=== PATIENT | male | born 1945 | race Caucasian/White ===

== ENCOUNTER 2020-05-19 06:35 | Inpatient (IN) | payer MEDICARE, BC, SELFPAY ==
[2020-05-19] VITALS (59 sets, daily range): BP systolic 86–186; BP diastolic 5–102; PULSE 54–102; RESP 15–38; TEMP 36.6–36.7; O2SAT 90–100; BMI 29.6
[2020-05-19] MEDS: nitroglycerin 0.4 mg sublingual Tablet SUBLINGUAL ×2 (06:45→06:50)
--- NOTE | 2020-05-19 06:49 | XR_ITS ---
WS: [id number] Portable AP upright chest, 05/19/2020 Clinical Data: chest pain Comparison: PA and lateral chest, 04/12/2012. Findings: No nodules, masses or effusions are seen. The heart is enlarged. The pulmonary vascularity is not increased. No pneumonia or pneumothorax is seen. The aortic arch and descending aorta show mil d tortuosity. Bilateral lower lobe opacities are seen and this could represent atelectasis and/or min imal pneumonia. Monitor leads on the chest wall. 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 XR/XR chest 1V portable [id number] Impression: 1. Minimal basilar opacities which could represent atelectasis and/or pneumonia . 2. Atherosclerosis and cardiomegaly.
--- NOTE | 2020-05-19 06:49 | ECG_ITS ---
[facility] Test Date: 2020-05-19 Pat Name: Hardeep Rodriguez Department: Room: Gender: Male Transitional Living Specialist: : 1945 Requested By: Alfie Sanderson Order Number: [id number] Jacki MD: Fabian Jackson M.D. Measurements Intervals [place] Rate: 77 P: 60 SC: 148 QRS: 54 QRSD: 92 T: 72 QT: 360 QTc: 408 Interpretive Statements SINUS RHYTHM WITH SINUS ARRHYTHMIA EARLY REPOLARIZATION [ST ELEVATION WITH NORMALLY INFLECTED T WAVE] No previous ECG available for comparison Electronically Signed On 05-19-2020 20:13:16 FURNACE UNLOADER by Fabian Jackson M.D. [id number]
[2020-05-19] MEDS: aspirin 81 mg Chew Tablet 324 MG PO (06:52)
[2020-05-19] MEDS: nitroglycerin 1 gm/inch oint Pkt 1 INCH TOPICAL ×2 (06:53→17:49)
[2020-05-19] MEDS: morphine 4 mg/mL SDV 1 mL IVP (06:55)
[2020-05-19] MEDS: ondansetron 2 mg/ML SDV 2 mL 4 MG IVP (06:55)
--- NOTE | 2020-05-19 07:00 | ECG_ITS ---
[facility] Test Date: 2020-05-19 Pat Name: Hardeep Rodriguez Department: Room: Gender: Male Cartridge Loader: : 1945 Requested By: Alfie Sanderson Order Number: [id number] Jacki MD: Fabian Jackson M.D. Measurements Intervals [place] Rate: 56 P: 56 MD: 142 QRS: 57 QRSD: 96 T: 62 QT: 405 QTc: 391 Interpretive Statements SINUS BRADYCARDIA ST ELEVATION, possibly related to early repolarization ACUTE PR Compared to ECG 05/19/2020 06:43:41 ST (T wave) deviation now present Myocardial infarct finding now present Sinus rhythm no longer present Sinus arrhythmia no longer present Early repolarization no longer present Electronically Signed On 05-19-2020 20:14:54 ROTOPRINTER by Fabian Jackson M.D. [id number]
[2020-05-19 07:04] LABS: Basophils % 0.3 %; Eosinophils # 0.2 10^3/uL (0.0-0.8); Eosinophils % 1.4 %; Hematocrit 45.8 % (42.0-52.0); Hemoglobin 14.8 g/dL (11.7-16.6); Lymphocytes # 2.9 10^3/uL (0.8-4.8); Lymphocytes % 22.9 %; Mean Corpuscular HGB Conc 32.3 g/dL (30.0-36.0); Mean Corpuscular Hemoglobin 30.5 pg (28.0-34.0); Mean Corpuscular Volume 94.4 fL (80-94); Mean Platelet Volume 10.1 fL (7.4-10.4); Monocytes % 8.2 %; Neutrophils # 8.39 10^3/uL (1.8-7.7); Nucleated Red Blood Cells % 0 %; Platelet Count 191 10^3/cmm (130-400); Red Blood Count 4.85 10^6/uL (4.1-5.3); Red Cell Distribution Width 12.1 % (12.1-15.1); White Blood Count 12.5 10^3/uL (4.0-10.0)
[2020-05-19] MEDS: sodium chloride 0.9% 1,000 ML 150 ML IV ×2 (07:05→17:26)
--- NOTE | 2020-05-19 07:17 | ED_ITS ---
HPI - Chest Pain General: Chief Complaint: Chest Pain Stated Complaint: Trouble breathing, Cp Time Seen by Provider: 05/19/20 06:45 History of Present Illness: HPI narrative: 75-year-old male presents the emergency room with complaint of chest pain. Began for 3 days morning woke him from sleep is not been having any other episodes recently like this. About 6 years ago he had a stress test which was negative. Is a history of hypertension and DVTs as well as previous PE he is on Eliquis and has been taking regularly. The chest pain is substernal in nature does not radiate anywhere it does make him short of breath he rates the pain at 10 of 10 after nitro he reports pain decreased to 8 of 10. He denies any diaphoresis he has had some nausea with this. He is not recently been ill he is noted any flulike symptoms no swelling in his legs. His initial EKG shows some early repole comparable to EKG from 08/16/13. EKG is reviewed with Dr. Staci SALAS complaint: chest pain Pertinent past history: other (DVT and pulmonary emboli) Onset (ago): hour(s) Timing of current episode: constant Prior episodes: No Onset: during rest Pain location: substernal Pain radiation: none Severity: severe Pain scale (0-10): 10 Quality: tightness and sharp Relieving factors: nitroglycerin and medication-other Exacerbating factors: nothing Context: history of DVT/PE Associated symptoms: Deny abdominal pain, diaphoresis, dyspnea, fever(s), leg edema, nausea, palpitations, sense of impending doom, syncope, vomiting or other Treatment prior to arrival: none Review of Systems Const: Denies: fever(s) or diaphoresis ENMT: Denies: throat pain, ear or mastoid pain, nasal discharge or nasal congestion Card: Denies: palpitations or syncope Resp: Denies: dyspnea GI: Denies: abdominal pain, nausea or vomiting : Denies: flank pain, dysuria, urinary frequency or urinary urgency Skin/Breast: Denies: rash or pruritus PFS ED PFSH: Medical History (Updated 05/23/20 @ 08:35 by Alfie Centeno DO) History of DVT (deep vein thrombosis) History of pulmonary embolism Pulmonary embolism Physical Exam Const: COMMON NORMALS: no acute distress GENERAL APPEARANCE: cooperative and comfortable ORIENTATION/CONSCIOUSNESS: Yes awake, Yes oriented to person, Yes oriented to place and Yes oriented to time HENMT: COMMON NORMALS: normocephalic, atraumatic and hearing grossly normal bilaterally HEAD & SCALP: normocephalic and atraumatic Eye: COMMON NORMALS: Equal, round and reactive pupils present, EOMs intact bilaterally, conjunctivae normal and no scleral icterus CONJUNCTIVA: Yes conjunctivae normal PUPIL: Yes Equal, round and reactive pupils present Neck/C-Spine: COMMON NORMALS: full ROM, no lymphadenopathy, supple and no JVD Lymph: LYMPHATIC: no lymphadenopathy noted and no lymphedema noted Resp: COMMON NORMALS: normal respiratory effort, No retractions, No use of accessory muscles and clear to auscultation bilaterally AUSCULTATION: clear to auscultation bilaterally Cardio: COMMON NORMALS: no JVD, regular rate, regular rhythm and No murmurs present (Cardio) RATE: regular rate RHYTHM: regular rhythm GI: COMMON NORMALS: Soft to palpation and No hepatosplenomegaly present AUSCULTATION: Yes normoactive bowel sounds PALPATION: Yes Soft to palpation, No Tenderness to palpation present (GI), No Guarding due to palpation present (GI) and Yes No hepatosplenomegaly present Extremity: COMMON NORMALS: normal to inspection, capillary refill normal, no clubbing, cyanosis or edema, no calf tenderness and no pedal edema Neuro: SENSORIUM/ORIENTATION: Yes oriented to person, Yes oriented to place and Yes oriented to time Skin: COMMON NORMALS: no rashes or lesions noted GENERAL SKIN EXAM: no rashes or lesions noted Course Vital Signs: Vital signs: Vital Signs Temperature 97.1 F L 05/22/20 15:55 Pulse Rate 70 05/22/20 16:16 Respiratory Rate 18 05/22/20 16:16 Blood Pressure 129/66 05/22/20 16:16 Pulse Oximetry 97 05/22/20 16:16 MDM - Chest Pain MDM Narrative: Medical decision making narrative: Initially reviewed EKGs with Dr. Small. There is subtle ST elevation it appears to be more related to early repolarization. Dr. Small reviewed the EKGs we sent him and he agreed. Patient continued to have increasing pain Dr. Small came and seen the patient down in the emergency room and elected to take the patient directly to the Science Professor. See his written orders. Lab Data: Labs: Lab Results 05/19/20 05/19/20 05/19/20 Range/Units 06:15 06:15 06:15 WBC 12.5 H (4.0-10.0) 10^3/ uL RBC 4.85 (4.1-5.3) 10^6/u L Hgb 14.8 (11.7-16.6) g/dL Hct 45.8 (42.0-52.0) % MCV 94.4 H (80-94) fL MCH 30.5 (28.0-34.0) pg MCHC 32.3 (30.0-36.0) g/dL RDW 12.1 (12.1-15.1) % Plt Count 191 (130-400) 10^3/c mm MPV 10.1 (7.4-10.4) fL Neut % (Auto) 67.0 % Lymph % (Auto) 22.9 % [place] % (Auto) 8.2 % Eos % (Auto) 1.4 % Baso % (Auto) 0.3 % Neut # (Auto) 8.39 H (1.8-7.7) 10^3/u L Lymph # (Auto) 2.9 (0.8-4.8) 10^3/u L [place] # (Auto) 1.0 H (0.2-0.9) 10^3/u L Eos # (Auto) 0.2 (0.0-0.8) 10^3/u L Baso # (Auto) 0.0 (0.0-0.1) 10^3/u L Nucleated RBC % (a uto) 0 % Nucleated RBCs # 0.0 /100WBC PT (12.1-14.9) SECO NDS INR (0.8-1.2) APTT (23.9-36.7) SECO NDS Sodium 139 (136-145) mmol/L Potassium 4.1 (3.5-5.1) mmol/L Chloride 101 (98-107) mmol/L Carbon Dioxide 29 (22-29) mmol/L Anion Gap 13.1 (5-19) BUN 22 (8-23) mg/dL Creatinine 0.7 (0.7-1.2) mg/dL GFR Calculation Not Reportable Glucose 104 (65-115) mg/dL Calculated Osmolal ity 292 (285-295) mOsm/k g Calcium 9.6 (8.5-10.5) mg/dL Total Bilirubin 0.7 (0.15-1.2) mg/dL AST 23 (0-40) U/L ALT 22 (0-41) U/L Alkaline Phosphata se 89 (40-130) IU/L Troponin T Baselin e 20 H (0-15) ng/L Total Protein 6.9 (6.6-8.7) g/dL Albumin 4.5 (3.5-5.2) g/dL Globulin 2.4 (1.3-4.6) g/dL 05/19/20 05/19/20 Range/Units 06:15 11:00 WBC 16.7 H (4.0-10.0) 10^3/ uL RBC 4.65 (4.1-5.3) 10^6/u L Hgb 14.1 (11.7-16.6) g/dL Hct 44.2 (42.0-52.0) % MCV 95.1 H (80-94) fL MCH 30.3 (28.0-34.0) pg MCHC 31.9 (30.0-36.0) g/dL RDW 12.3 (12.1-15.1) % Plt Count 200 (130-400) 10^3/c mm MPV 9.7 (7.4-10.4) fL Neut % (Auto) 88.1 % Lymph % (Auto) 5.5 % [place] % (Auto) 5.8 % Eos % (Auto) 0.1 % Baso % (Auto) 0.2 % Neut # (Auto) 14.72 H (1.8-7.7) 10^3/u L Lymph # (Auto) 0.9 (0.8-4.8) 10^3/u L [place] # (Auto) 1.0 H (0.2-0.9) 10^3/u L Eos # (Auto) 0.0 (0.0-0.8) 10^3/u L Baso # (Auto) 0.0 (0.0-0.1) 10^3/u L Nucleated RBC % (a uto) 0 % Nucleated RBCs # 0.0 /100WBC PT 14.50 (12.1-14.9) SECO NDS INR 1.10 (0.8-1.2) APTT 31.4 (23.9-36.7) SECO NDS Sodium (136-145) mmol/L Potassium (3.5-5.1) mmol/L Chloride (98-107) mmol/L Carbon Dioxide (22-29) mmol/L Anion Gap (5-19) BUN (8-23) mg/dL Creatinine (0.7-1.2) mg/dL GFR Calculation Glucose (65-115) mg/dL Calculated Osmolal ity (285-295) mOsm/k g Calcium (8.5-10.5) mg/dL Total Bilirubin (0.15-1.2) mg/dL AST (0-40) U/L ALT (0-41) U/L Alkaline Phosphata se (40-130) IU/L Troponin T Baselin e (0-15) ng/L Total Protein (6.6-8.7) g/dL Albumin (3.5-5.2) g/dL Globulin (1.3-4.6) g/dL Discharge Plan Discharge Patient Disposition: Admitted As Inpatient Admit Provider: Dylan Wakefield Clinical Impression: Chest pain, History of coronary artery disease Condition: Stable Referrals: Dylan Wakefield MD [Physician] - Marycarmen Maradiaga FNP [Nurse Practitioner] - 4-7 days ([facility] will be calling you to arrange an appointment date and time. If you don't hear from them please call the office. ) Pete Dunne MD [Primary Care Provider] - Discharge Diet: Cardiac Discharge Activity: Increase activity as tolerated, Limit activity as instructed and Use walker/crutches as instructed Patient Instructions: Metoprolol (By mouth), Colchicine (By mouth), Atorvastatin (By mouth), Clopidogrel (By mouth), Pantoprazole (By mouth), Atrial Fibrillation (DC), Left Heart Catheterization (DC), Coronary Angioplasty (DC), Acute Pericarditis (DC), Chest Pain Stoplight, Post Angiogram Home Care Instructions Additional Instructions: You will have a hospital Follow-up with Marycarmen Maradiaga in 7 days, Dr. Wakefield in 4- week. Please continue Plavix without interruption for next 1 year. [facility] will be calling you to arrange an appointment date and time. If you don't hear from them please call the office. Follow-up with your primary care doctor. Interventions: ED Discharge Assessment Last Done: 05/19/20 08:34 ED Charges Last Done: 05/19/20 08:34 Discharge Date/Time: 05/19/20 15:18 Coding Level of Care Code ED Drop Wire Hanger for Chg Fwd Exam Comprehensive
[2020-05-19] MEDS: morphine 4 mg/mL SDV 1 mL 2 MG IVP (07:19)
[2020-05-19 07:20] LABS: Alanine Aminotransferase 22 U/L (0-41); Albumin Level 4.5 g/dL (3.5-5.2); Alkaline Phosphatase 89 IU/L (40-130); Anion Gap 13.1 (5-19); Aspartate Amino Transferase 23 U/L (0-40); Blood Urea Nitrogen 22 mg/dL (8-23); Calcium 9.6 mg/dL (8.5-10.5); Carbon Dioxide 29 mmol/L (22-29); Chloride 101 mmol/L (98-107); Globulin 2.4 g/dL (1.3-4.6); Glucose 104 mg/dL (65-115); Osmolality Calculated 292 mOsm/kg (285-295); Potassium 4.1 mmol/L (3.5-5.1); Sodium 139 mmol/L (136-145); Total Bilirubin 0.7 mg/dL (0.15-1.2); Total Protein 6.9 g/dL (6.6-8.7)
[2020-05-19 07:22] LABS: Troponin(5th) Baseline 20 ng/L (0-15)
[2020-05-19 08:00] LABS: Partial Thromboplastin Time 31.4 SECONDS (23.9-36.7)
[2020-05-19] MEDS: heparin 5,000 unit/mL INJ 1 mL 5000 UNIT INJECTION (08:17)
[2020-05-19] MEDS: clopidogrel 300 mg Tablet 600 MG PO (08:17)
--- NOTE | 2020-05-19 08:18 | P.HP_ITS ---
Providers/Chief Complaint Admitting Physician: Dylan Wakefield MD Primary Care Provider: Pete Dunne MD Chief Complaint: Trouble breathing, Cp History of Present Illness Hardeep Rodriguez is a 75 year old male past medical history not significant for DVT/pulmonary embolism on long-term anticoagulation apixaban, vitamin D insufficiency presented with chest pain off and on basis since 3 AM this morning. He came to the ER initial and subsequent EKGs were consistent with bradycardia and early repolarization no prior EKG to compare. Despite of couple of rounds of nitroglycerin which brought him down his blood pressure and morphine patient chest pain gotten worse now he rates it 10 x 10. He used to see Dr. Ton Foster few years ago he had a stress test which was negative. Si nce patient continues to have chest pain which has been worsening and not relieving plus his EKG is equivocal we will proceed with left heart cath. I have detailed discussion with the patient his at bedside and his son over the phone who is in [place] regarding all the risk benefit and alternative for the procedure. They would like to proceed with left heart cath. They understand the risk of bleeding arrhythmia urgent or emergent bypass stroke and . Medications/Allergies Home Medications Medication Instructions Recorded Confirmed Last Taken Type Vitamin D3 1 cap PO DAILY 05/19/20 05/19/20 05/18/20 History apixaban [Eliquis] 5 mg PO BID 05/19/20 05/19/20 05/18/20 21:00 History vardenafil 20 mg PO PRN 05/19/20 05/19/20 Unknown History Allergies Allergy/AdvReac Type Severity Reaction Status Date / Time No Known Allergies Allergy Verified 05/19/20 08:14 PFSH Acute PFSH: Medical History History of DVT (deep vein thrombosis) History of pulmonary embolism Vitals/I&O/Wt Last Vital Signs Temp 97.9 F 05/19/20 06:43 Pulse 54 L 05/19/20 07:01 Resp 15 05/19/20 07:19 BP 86/50 05/19/20 07:01 Pulse Ox 94 05/19/20 07:01 Weight last 48 hrs Weight 195 lb Physical Exam Narrative: EXAM NARRATIVE: GENERAL: Patient is alert, awake and oriented x3. Patient is in severe distress NECK: No jugular vein distension. HEENT: No cyanosis. No icterus. No pallor. HEART: Regular S1 and S2. No murmur, rub or gallop. LUNGS: Clear to auscultate bilaterally. ABDOMEN: Soft, nontender and nondistended. Positive bowel sounds. No guarding, rebound or tenderness. CENTRAL NERVOUS SYSTEM: Grossly nonfocal. EXTREMITIES: Lower extremities without edema bilaterally. Pulses palpable in the lower extremities, both dorsalis pedis and posterior tibial. Data : 05/19/20 06:15 05/19/20 06:15 A&P Assessment and plan (1) Chest pain: Worsening and continuous chest pain despite of medical regimen with equivocal EKG suspicious for unstable angina we would therefore proceed with early invasive strategy. As above defined I have personally explained all risk benefit and alternative for the procedure patient understand the risk of bleeding hematoma arrhythmia urgent emergent CABG due to complication or not due to nature of disease and an extreme scenarios . He would like to proceed with it. I will load patient with 600 mg of Plavix, 325 mg of aspirin and 5000 unit of heparin. Further plan will be advised as per progress of the patient and during left heart cath. Status: Acute Qualifiers: Chest pain type: precordial pain Qualified Code(s): R07.2 - Precordial pain Attestations Medical Necessity Statement*: Patient require continuation hospitalization for above defined care. 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
--- NOTE | 2020-05-19 08:19 | XACV_ITS ---
Exam Room: 1 Ht: 173 cm Wt: 88 kg BSA: 2.08 m2 Gender: Male : 1945 Exam Priority: Routine Indication(s): - Unstable angina Procedure(s): Procedure Description: Diagnostic procedure Procedure Description: PCI procedure Procedure Description: Drug Eluting Coronary Stent Procedure Description: PTCA Procedure Description: Coronary Angiography Diagnostic Findings * LM has 0% stenosis. * Mid Left Anterior Descending Coronary Artery: Severe 80% stenosis, RXE: 3 flow. * mCIRC: Mild 40% stenosis, REX: 3 flow. * dCIRC: Moderate 50% stenosis, REX: 3 flow. * Posterior Descending Right Coronary Artery: Severe 80% stenosis, REX: 3 flow. * Posterior Descending Right Coronary Artery: Severe 80% stenosis, REX: 3 flow. * Posterior Descending Right Coronary Artery: Severe 80% stenosis, REX: 3 flow. * Coronary angiography shows right dominance. Interventional Findings * Mid Left Anterior Descending Coronary Artery: 80% stenosis treated with MDT R JORGE 3.0X30 JOE. 0% residual stenosis, REX: 3 flow. * Posterior Descending Right Coronary Artery: 80% stenosis treated with AB TREK 2.50X12 RX BALLOON, MDT R JORGE 2.5X15 JOE, and two MDT R JORGE 3.0X8 JOE. 0% residual stenosis, REX: 3 flow. * Posterior Descending Right Coronary Artery: 80% stenosis treated with Drug Eluting Stent. 0% residual stenosis, REX: 3 flow. * Posterior Descending Right Coronary Artery: 80% stenosis treated with Drug Eluting Stent. 0% residual stenosis, REX: 3 flow. Conclusions 1. There is severe coronary artery disease with two vessel disease. 2. Mid Left Anterior Descending Coronary Artery was treated with Drug Eluting Stent. 3. Posterior Descending Right Coronary Artery was treated with Balloon and three Drug Eluting Stent. 4. Posterior Descending Right Coronary Artery was treated with Drug Eluting Stent. 5. Posterior Descending Right Coronary Artery was treated with Drug Eluting Stent. 6. Indication for 7. coronary angiogram and PCI 8. : 9. Acute coronary syndrome 10. with ST elevation in the inferolateral leads 11. with question of 12. pericarditis 13. versus 14. acute coronary syndrome 15. since patient continued to have chest pain not relieved with morphine 16. and somewhat relieved with nitroglycerin 17. patient was taken to the Senior Radiation Protection Technician he was found to have 18. proximal eccentric PDA and mid 80% PDA with 80% mid LAD. Could not be incidental finding however since patient is complaining of chest pain for the past few months and worsening of shortness of breath these lesions appear to be significant to me and this is an acute presentation with EKG changes we therefore proceeded with PCI. RPDA after deployment of proximal and mid stent showed hazy mid lesion could be dissection versus thrombus not got better with balloon angioplasty therefore will stented that segment as well.. Recommendations * 1-Return to inpatient for close monitoring and routine cath care 2-Risk factor modification for secondary prevention 3-Statin and aspirin 81 mg life--long, if tolerated 4-Patient was pre-loaded with 600 mg of Plavix, continue Plavix 75mg p.o. daily for at least one year. We will assess at the end of one year again to continue if further or not 5-Continue optimal medical management 6-Follow up with Dr. Wakefield in four weeks and your primary care in 10 days. Interventional RX Recommendation: PCI w/o planned CABG Diagnostic RX Recommendation: PCI w/o planned CABG Pressures Phase:Rest AO : 110 / 64 ( 81 ) @ 2:45:00 AM 113 / 84 ( 97 ) @ 3:20:00 AM 116 / 91 ( 103 ) @ 3:27:00 AM 132 / 81 ( 105 ) @ 4:05:00 AM 123 / 89 ( 105 ) @ 4:11:00 AM 155 / 105 ( 129 ) @ 4:15:00 AM Clinical Evaluation EBL: 5mL-10mL Procedural Details Pre-Procedure Time Out. Identified patient by full name and date of as verbalized by the patient/guarantor. Does the consent match the physician's order: Yes. Accurate & Complete Informed Consent: Yes. Inpatient/Outpatient History & Physical on Chart: Yes. If H&P is completed, is and addenduem needed: N/A; If yes, is the addendum complete: N/A. Visualize and Verify Site with Patient/Guarantor: N/A. Relevant Radiology Images available: N/A. Pre-op teaching completed and patient verbalized understanding. The risks, benefits, and alternatives of sedation and/or procedure were discussed by physician. The patient agrees to continue. Procedure started. [facility] Clinical Fraility Score: 3: Managing Well. Senior Radiation Protection Technician Indications: Pre-operative Evaluation. Chest Pain Symptom Assessment: Typical Angina Symptoms. Cardiovascular Instability: Yes, if yes, Persistant Ischemic Symptoms. Correct patient, site and procedure confirmed by cath team. Current diagnosis: Unstable angina. PERRLA. Strong, equal hand charge auditor bilaterally. Lungs clear x 5 lobes. IV Fluids: 0.9% NaCl at KVO. 0 mL infused prior to operations label clerk. Pre Procedural Pulses: bilateral radial was 3+. IV Site on Arrival: 18 gauge in the left anticubital. Oxygen started at 2liters/min via nasal canula. right groin was prepped with chloroprep then draped in the usual sterile fashion. right radial was prepped with chloroprep then draped in the usual sterile fashion. Physician notified. Physician arrived. Baseline sample Acquired. HR: 89 BPM. Patient's family unavailable due to current Covid-19 restrictions. Will update via telephone. Equipment: 6F - Radial. ACIST Manifold Kit Model BT 2000. Cardiac Cath Pack. Heparinized Saline (2 units/mL), 1000 mL bag. Current Diagnosis : Chest Pain. Physician scrubbed in. Immediate Pre-Procedure Time Out. Correct Patient: Yes; Correct Procedure: Yes; Correct Site: Yes; Correct Patient Position: Yes; Correct Supplies: Yes; Dried Flammable Prep: Yes; Blood Products Available: N/A. Lidocaine 1% infiltrated to the right radial. Arterial access obtained. A 5 moldovan TIG catheter in over wire. Multiple views taken of left coronary artery. The patient's spouse, Lisa , was updated via telephone of the start of the procedure. Catheter redirected to the RCA. Multiple views taken of right coronary artery. Catheter removed over the exchange wire. PCI Indication: New Onset Angina. 6 moldovan JR 4 guide catheter was inserted over the wire. [place] Bottom guidewire was advanced through the guide catheter to lesion in the PDA. Inflation number : 1 A AB TREK 2.50X12 RX BALLOON was prepped and advanced across the R PDA , then inflated to 14 EMMA for 0:13 seconds. Inflation number: 2 The AB TREK 2.50X12 RX BALLOON was reinflated across the R PDA, to 14 EMMA for 0:09 seconds. Inflation number: 3 The AB TREK 2.50X12 RX BALLOON was reinflated across the R PDA, to 14 EMMA for 0:06 seconds. Inflation number: 4 The AB TREK 2.50X12 RX BALLOON was reinflated across the R PDA, to 14 EMMA for 0:21 seconds. Results checked. Inflation number: 5 The AB TREK 2.50X12 RX BALLOON was reinflated across the R PDA, to 14 EMMA for 0:00 seconds. Results checked. Balloon out. Inflation Number : 6 A MDT R JORGE 2.5X15 JOE -Lot Number# [id number] was prepped and advanced across the R PDA. The stent was deployed at 17 EMMA for 0:21 seconds. Exp. 02/25/2022. Results checked. Balloon out. [place] Bottom Wire out. Runthrough guidewire was advanced through the guide catheter to lesion in the ostial PDA. Inflation Number : 7 A MDT R JORGE 3.0X8 JOE -Lot Number# [id number] was prepped and advanced across the R PDA. The stent was deployed at 12 EMMA for 0:16 seconds. Exp. 11/29/2021. Results checked. Stent balloon and wire out. Wire out. Runthrough guidewire was advanced through the guide catheter to lesion in the PDA. Jorge 2.5 x 8 inserted, unable to cross, removed intact. Guideliner inserted. Guideliner out. Wire out. Guide catheter out. 6 moldovan AL 0.75 guide catheter was inserted over the wire. ACT drawn. Results 179 seconds. Therapeutic limits - pre-heparin administration 90-150 seconds and monitoring heparin during a vascular procedure >250 seconds. BMW guidewire was advanced through the guide catheter to lesion in the PDA. The patient's spouse, Lisa , was updated via telephone of the start of the procedure. Inflation Number : 8 A MDT R JORGE 3.0X8 JOE -Lot Number# [id number] was prepped and advanced across the R PDA. The stent was deployed at 14 EMMA for 0:18 seconds. Exp. . Inflation number: 9 The stent balloon was then re-inflated across the R PDA to 16 EMMA for 0:14 seconds. Results checked. Stent balloon and wire out. Guide catheter out. A 5 moldovan JL4 catheter in over wire. Multiple views taken of left coronary artery. Catheter out. 6 moldovan XB 3.5 guide catheter was inserted over the wire. ACT drawn. Results seconds. Therapeutic limits - pre-heparin administration 90-150 seconds and monitoring heparin during a vascular procedure >250 seconds. BMW guidewire was advanced through the guide catheter to lesion in the mid LAD. Inflation Number : 1 A MDT R JORGE 3.0X30 JOE -Lot Number# [id number] was prepped and advanced across the Mid LAD. The stent was deployed at 16 EMMA for 0:26 seconds. Exp. 10/17/2020. Results checked. Stent balloon out over wire. NC Euphora 3.5 x 15 balloon unable to cross, removed. Wire out. Results checked. Guide catheter out. Physiciann scrubbed out. TR band placed. Hemostasis obtained. Post Procedure: Pulses reassessed and unchanged. PERRLA. Strong, equal hand charge auditor bilaterally. No VTE prophylaxis required. A TR Band was successful obtaining hemostatsis at the Right Radial artery insertion site. Medication's Wasted: Lidocaine 1% = 14 mL. Medication's Wasted: Nitro = 49.6 mg. Total IV fluids: 200 mL. Post-op diagnosis: Significant 2 vessel disease. Complications: none. Estimated blood loss: 5mL-10mL. Procedure completed. Patient transferred by wheelchair to CPRU. Vital chart was stopped. Access Site Site: Right Radial artery Sheath Size: 6 Fr Hemostasis Method: TR Band Hemostasis Success: Successful Procedure Medications Start: 8:39 AM Stop: 8:39 AM Medication: Versed Amount: 1 mg Route: I.V. Start: 8:39 AM Stop: 8:39 AM Medication: Fentanyl Amount: 50 mcg Route: I.V. Start: 8:42 AM Stop: 8:42 AM Medication: Nitrogylcerin Amount: 200 mcg Route: I.A. Start: 8:52 AM Stop: 8:52 AM Medication: Heparin Amount: 4000 units Route: I.V. Start: 8:55 AM Stop: 8:55 AM Medication: Aggrastat 12.5 mg/250 mL Amount: 44 ml Route: I.V. bolus Start: 8:56 AM Stop: 8:56 AM Medication: Aggrastat 12.5 mg/250 mL Amount: 15.8 ml/hr Route: I.V. drip Start: 9:18 AM Stop: 9:18 AM Medication: Versed Amount: 1 mg Route: I.V. Start: 9:24 AM Stop: 9:24 AM Medication: Nitrogylcerin Amount: 200 mcg Route: I.C. Start: 9:46 AM Stop: 9:46 AM Medication: Heparin Amount: 2000 units Route: I.V. Start: 9:57 AM Stop: 9:57 AM Medication: Fentanyl Amount: 50 mcg Route: I.V. I, the attending physician, have reviewed and verified all procedure medications. Yes, all medications given per verbal order History/Risk Factors Hypertension: Yes Dyslipidemia: No Peripheral Arterial Disease (PAD): No Myocardial Infarction (OK): No Obesity: No Renal Disease: No Prior Interventions PCI: No CABG: No Valve Surgery: No Report Signatures Finalized by Dylan Wakefield MD on 05/31/2020 03:01 PM
--- NOTE | 2020-05-19 10:45 | PC.NURSE ---
RECOVERY NOTE PT RECEIVED FROM ENGRAVING PLATE MAKER. POST INTERVENTION VIA WHEELCHAIR, PT UNSTEADY ON FEET TRANSFERRING TO BED WITH 1 PERSON ASSIST. TR BAND IN PLACE WITH 18 MLS OF AIR. NO HEMATOMA PRESENT. PT ATTEMPTED TO VOID ON HIS OWN WITH NO SUCCESS. EDWARD PLACED WITH VERBAL ORDER FROM DR GANNON. TOTAL OUTPUT 1250. PT ALERT AND ORIENTED X3. DINKER PACED WITH OTHER VITALS TAKEN . PT VERBALLY EDUCATED ON RESTRICTIONS TO RIGHT WRIST. PT VERBALIZED UNDERSTANDING. PALPABLE RIGHT RADIAL PULSE. NO OTHER ASSESSMENT CHANGES NOTED AT THIS TIME. WILL CONTINUE TO MONITOR.
[2020-05-19 11:10] LABS: Basophils % 0.2 %; Eosinophils % 0.1 %; Hematocrit 44.2 % (42.0-52.0); Hemoglobin 14.1 g/dL (11.7-16.6); Lymphocytes # 0.9 10^3/uL (0.8-4.8); Lymphocytes % 5.5 %; Mean Corpuscular HGB Conc 31.9 g/dL (30.0-36.0); Mean Corpuscular Hemoglobin 30.3 pg (28.0-34.0); Mean Corpuscular Volume 95.1 fL (80-94); Mean Platelet Volume 9.7 fL (7.4-10.4); Monocytes % 5.8 %; Neutrophils # 14.72 10^3/uL (1.8-7.7); Neutrophils % 88.1 %; Nucleated Red Blood Cells % 0 %; Platelet Count 200 10^3/cmm (130-400); Red Blood Count 4.65 10^6/uL (4.1-5.3); Red Cell Distribution Width 12.3 % (12.1-15.1); White Blood Count 16.7 10^3/uL (4.0-10.0)
--- NOTE | 2020-05-19 11:27 | PC.NURSE ---
RECOVERY NOTE BILATERAL IVS ALREADY IN PLACE ON ARRIVAL TO TRAVEL PROFESSIONAL- SEE ER DOCUMENTATION FOR DETAILS.
--- NOTE | 2020-05-19 11:59 | ECG_ITS ---
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 Measurements Intervals [place] Rate: 85 P: 45 AK: 110 QRS: 36 QRSD: 93 T: 46 QT: 333 QTc: 398 Interpretive Statements SINUS RHYTHM WITH SHORT AK INTERVAL ST ELEVATION, CONSIDER INFERIOR INJURY [MARKED ST ELEVATION W/O NORMALLY INFLECTED T WAVE IN II/aVF] ACUTE NM Diffuse ST changes, consider early polarization/pericarditis Compared to ECG 05/19/2020 07:25:09 Short AK interval now present Sinus bradycardia no longer present ST (T wave) deviation still present Myocardial infarct finding still present Electronically Signed On 05-19-2020 20:18:50 CAR PAINTER by Fabian Jackson M.D. [id number]
--- NOTE | 2020-05-19 12:16 | USCV_ITS ---
Hardeep Rodriguez Age: 75 Gender: M : 1945 Exam Date: 05/19/2020 14:58 Ordering Phys: Dylan Wakefield MD ([email or web address]) Technologist: Darryl Hawthorne [place] [facility] [place]ication: STEMI BP: 125 / 66 HR: 79 Rhythm: Sinus Technical Quality: Fair MEASUREMENTS (Male / Female) Normal Values 2D ECHO LVOT Diameter 2.0 cm LV Ejection Fraction MOD 2C 55.5 % LV Ejection Fraction 2C AL 56.1 % LA Diameter 3.9 cm LA Width 3.5 cm LA Height 4.3 cm RA Width 3.8 cm RA Height 4.2 cm M-MODE LV Diastolic Diameter MM 4.5 cm 4.2 - 5.9 / 3.9 - 5.3 cm LV Systolic Diameter MM 2.9 cm LV Ejection Fraction MM Teich 64.7 % IVS Diastolic Thickness MM 0.9 cm 0.6 - 1.0 / 0.6 - 0.9 cm IVS Systolic Thickness MM 1.5 cm LVPW Diastolic Thickness MM 1.1 cm 0.6 - 1.0 / 0.6 - 0.9 cm LVPW Systolic Thickness MM 1.8 cm RV Diastolic Diameter MM 2.0 cm Aortic Annulus Diameter 3.8 cm LA Ao Ratio MM 1.1 MV E Point Septal Separation 1.0 cm DOPPLER AV Peak Velocity 114.0 cm/s LVOT Peak Velocity 137.0 cm/s AV Area Cont Eq vti 4.2 cm squared AV Area Cont Eq pk 4.0 cm squared MV Area PHT 5.0 cm squared Mitral E to A Ratio 1.0 MV E' Velocity 36.0 cm/s Mitral E to MV E' Ratio 7.1 Mitral E to LV E' Lateral Ratio 6.1 Mitral E to LV E' Septal Ratio 8.6 TR Peak Velocity 129.0 cm/s TR Peak Gradient 6.7 mmHg TV Peak E Velocity 58.0 cm/s Right Atrial Pressure 3.0 mmHg Pulmonary Artery Systolic Pressu 9.7 mmHg FINDINGS Left Ventricle Normal left ventricular cavity size. Normal left ventricular systolic function. No regional wall motion abnormalities. Left ventricular ejection fraction is estimated at 64 %. Grade I/IV diastolic dysfunction (abnormal relaxation filling pattern), normal to mildly elevated filling pressures. Right Ventricle The right ventricle is normal in size and function. Right Atrium The right atrium is normal in size. Left Atrium The left atrium is normal in size. Mitral Valve Mildly thickened mitral valve. No mitral valve stenosis. No mitral valve regurgitation. Aortic Valve Mild aortic valve calcification. No aortic valve stenosis. No aortic valve regurgitation. Tricuspid Valve Structurally normal tricuspid valve without significant stenosis or regurgitation. Pulmonary artery systolic pressure is normal. Pulmonic Valve Structurally normal pulmonic valve without significant stenosis. There is no pulmonic regurgitation. Pericardium Normal pericardium without effusion. Aorta Normal ascending aorta dimension. CONCLUSIONS 1-Normal left ventricular cavity size. Normal left ventricular systolic function. No regional wall motion abnormalities. Left ventricular ejection fraction is estimated at 64 %. Grade I/IV diastolic dysfunction (abnormal relaxation filling pattern), normal to mildly elevated filling pressures. 2-Mild aortic valve calcification. No aortic valve stenosis. No aortic valve regurgitation. 3-There is no pericardial effusion. 4-There are no prior echocardiogram studies to compare. 5-Due to poor quality study cannot compared with prior echocardiogram Dylan Wakefield MD (Electronically Signed) Final Date: 21 May 2020 18:51 S
--- NOTE | 2020-05-19 12:34 | PC.NURSE ---
RECOVERY NOTE PT BEGAN COMPLAINING OF 10 OUT OF 10, CALLED STAT EKG PER DR GANNON VERBAL ORDER. OXYGEN PLACED ON PT 2L NC. VITAL SIGNS STABLE. WHEN RESPIRATORY ARRIVED TO COMPLETE EKG, PT HAD TO BE AWAKENED TO PROPERLY POSITION FOR EKG. EKG HAND DELIVERED TO DR GANNON BY KINA KRUEGER. NO FURTHER ORDERS AT THIS TIME. WILL CONTINUE TO MONITOR PER PROTOCOL.
[2020-05-19 16:28] LABS: Basophils % 0.2 %; Hematocrit 41.8 % (42.0-52.0); Hemoglobin 13.5 g/dL (11.7-16.6); Lymphocytes % 4.7 %; Mean Corpuscular HGB Conc 32.3 g/dL (30.0-36.0); Mean Corpuscular Hemoglobin 30.6 pg (28.0-34.0); Mean Corpuscular Volume 94.8 fL (80-94); Mean Platelet Volume 10.2 fL (7.4-10.4); Monocytes # 1.8 10^3/uL (0.2-0.9); Monocytes % 8.2 %; Neutrophils # 18.89 10^3/uL (1.8-7.7); Neutrophils % 86.4 %; Nucleated Red Blood Cells % 0 %; Platelet Count 187 10^3/cmm (130-400); Red Blood Count 4.41 10^6/uL (4.1-5.3); Red Cell Distribution Width 12.3 % (12.1-15.1); White Blood Count 21.8 10^3/uL (4.0-10.0)
--- NOTE | 2020-05-19 17:33 | PC.NURSE ---
patient reports 10/[address] Dr melgar notified and at bedside verbal instructions given to give lasix IVP 40mg x one now and stop IV fluids
--- NOTE | 2020-05-19 17:36 | ECG_ITS ---
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 Measurements Intervals [place] Rate: 75 P: 180 OR: 133 QRS: 149 QRSD: 97 T: 151 QT: 341 QTc: 382 Interpretive Statements SINUS RHYTHM ARM LEADS REVERSED [INVERTED P AND QRS IN I] ST ELEVATION, CONSIDER SEPTAL INJURY [MARKED ST ELEVATION W/O NORMALLY INFLECTED T WAVE IN V1/V2] ACUTE MA Cannot rule out early repolarization/pericarditis Compared to ECG 05/19/2020 12:19:00 Short OR interval no longer present Myocardial infarct finding no longer present ST (T wave) deviation still present Electronically Signed On 05-19-2020 20:20:38 DRESS DESIGNER by Fabian Jackson M.D. [id number]
[2020-05-19] MEDS: FUROsemide 10 mg/mL SDV 4mL 40 MG IVP ×2 (17:47→22:46)
--- NOTE | 2020-05-19 17:50 | XACV_ITS ---
Exam Room: 1 Ht: 173 cm Wt: 88 kg BSA: 2.08 m2 Gender: Male : 1945 Exam Priority: Routine Procedure(s): Procedure Description: Diagnostic procedure Procedure Description: Left Heart Catheterization Procedure Description: Coronary Angiography Diagnostic Findings * No significant disease noted in the Left Main, LAD, Circumflex, or RCA coronary arteries. * Coronary angiography shows right dominance. Conclusions 1. No significant disease noted in the Left Main, LAD, Circumflex, or RCA coronary arteries. 2. Reason for 3. repeat angiogram 4. : Patient continues to have chest pain 5. with dynamic EKG changes 6. therefore he was taken 7. to the Vet Assistant 8. to make sure that he has patent stent. 9. Left main is normal 10. , LAD has patent 11. mid stent without any significant stenosis LCx has luminal irregularity 12. RCA has luminal irregularity with patent 13. PDA 14. overlapping stents.. Recommendations * Continue current medical management and risk factor modification. Continue also treating for pericarditis. Diagnostic RX Recommendation: medical therapy and/or counseling Pressures Phase:Rest AO : 175 / 46 ( 86 ) @ 12:21:00 PM 109 / 69 ( 86 ) @ 12:26:00 PM Clinical Evaluation EBL: 5mL-10mL Procedural Details Procedure Consent Obtained. Pre-Procedure Time Out. Identified patient by full name and date of as verbalized by the patient/guarantor. Does the consent match the physician's order: Yes. Accurate & Complete Informed Consent: Yes. Inpatient/Outpatient History & Physical on Chart: N/A Emergent; Informed Consent not obtained due to time critical life threat. If H&P is completed, is and addenduem needed: N/A Emergent; Informed Consent not obtained due to time critical life threat; If yes, is the addendum complete: N/A Emergent; Informed Consent not obtained due to time critical life threat. Relevant Radiology Images available: Yes. Pre-op teaching completed and patient verbalized understanding. The risks, benefits, and alternatives of sedation and/or procedure were discussed by physician. The patient agrees to continue. Procedure started. Current diagnosis: Unstable angina. PERRLA. Strong, equal hand seafood farmer bilaterally. Lungs clear x 5 lobes. Oxygen started at 2liters/min via nasal canula. right groin was prepped with chloroprep then draped in the usual sterile fashion. Physician notified. Equipment: 6F - Femoral. Cardiac Cath Pack. ACVouchr Manifold Kit Model BT 2000. Heparinized Saline (2 units/mL), 1000 mL bag. Kit, Micropuncture. Physician arrived. Physician scrubbed in. Immediate Pre-Procedure Time Out. Correct Patient: Yes; Correct Procedure: Yes; Correct Site: Yes; Correct Patient Position: Yes; Correct Supplies: Yes; Dried Flammable Prep: Yes; Blood Products Available: No;. Baseline sample Acquired. HR: 76 BPM. AP pads applied to pt. Lidocaine 1% infiltrated to the right groin. Arterial access obtained with micropuncture set. 6 austrian XB 3.5 guide catheter was inserted over the wire. Multiple views taken of left coronary artery. Catheter out. 6 austrian JR 4 guide catheter was inserted over the wire. Multiple views taken of right coronary artery. Catheter out. A Suture was successful obtaining hemostatsis at the Right Femoral artery insertion site. Sheath(s) sutured into position with 2-0 silk and sterile 4x4's and Op-site applied over the site. No oozing or signs and symptoms of hematoma noted. Arterial sheath flushed and connected to tranducer and pressure bag with heparinized saline. PERRLA. Strong, equal hand seafood farmer bilaterally. No VTE prophylaxis required. Total IV fluids: 50 mL. Fluoro: 2:02. Contrast type used: Visipaque 320 mgI/mL, 500 mL bottle. [id number]. Post-op diagnosis: patent stents. Complications: none. Estimated blood loss: 5mL-10mL. Procedure completed. Patient transferred by bed to 1st floor. Vital chart was stopped. Access Site Site: Right Femoral artery Sheath Size: 6 Fr Hemostasis Method: Suture Hemostasis Success: Successful I, the attending physician, have reviewed and verified all procedure medications. Yes, all medications given per verbal order History/Risk Factors Hypertension: Yes Dyslipidemia: No Peripheral Arterial Disease (PAD): No Myocardial Infarction (OK): No Obesity: No Renal Disease: No Prior Interventions PCI: No CABG: No Valve Surgery: No Report Signatures Finalized by Dylan Wakefield MD on 05/31/2020 03:08 PM
--- NOTE | 2020-05-19 18:07 | PM.PN ---
Subjective Subjective: Interval history: Patient started complaining of chest pain and shortness of breath. Twelve-lead EKG was performed which is suspicious for hyperacute anterolateral T waves in ischemic changes in 1 and aVL. Patient had stents placed this morning. Since he continues to have chest pain with this dynamic EKG changes I will taken back to the Retirement Consultant to assess patency of the stent or reocclusion Vitals/I&O/Wt Last Vital Signs Temp 97.9 F 05/19/20 06:43 Pulse 74 05/19/20 17:30 Resp 16 05/19/20 17:30 BP 129/70 05/19/20 17:30 Pulse Ox 97 05/19/20 17:45 05/19/20 05/19/20 05/19/20 06:59 14:59 22:59 Intake Total 1000 / 1000 Output Total 1250 / 1250 1000 / 2250 Balance -250 / -250 -1000 / -1250 Weight last 48 hrs Weight 195 lb Physical Exam Narrative: EXAM NARRATIVE: GENERAL: Patient is alert, awake and oriented x3. Patient is in moderate distress NECK: No jugular vein distension. HEENT: No cyanosis. No icterus. No pallor. HEART: Regular S1 and S2. No murmur, rub or gallop. LUNGS: Decreased breath sound bilaterally. ABDOMEN: Soft, nontender and nondistended. Positive bowel sounds. No guarding, rebound or tenderness. CENTRAL NERVOUS SYSTEM: Grossly nonfocal. EXTREMITIES: Lower extremities without edema bilaterally. Pulses palpable in the lower extremities, both dorsalis pedis and posterior tibial. Urinary Catheter Management^: Silva: Cath Placed During This Visit: yes Urinary Catheter Date of Insertion: 05/19/20 Urinary Catheter Time of Insertion: 10:45 Data : 05/19/20 16:11 05/19/20 06:15 A&P Assessment and plan (1) Chest pain: Patient is complaining of worsening of chest pain with dynamic EKG changes as above I will take him to the Retirement Consultant to assess patency of the stents. 40 mg of IV Lasix and Nitropaste has been given. Further plan will advise after left heart cath/progress of the patient. I have detailed discussion with the patient his and son over the phone. They understand the urgency of left heart cath. They agree with all risk benefit and alternative for the procedure. They agree with proceeding with cath now. Status: Acute Qualifiers: Chest pain type: precordial pain Qualified Code(s): R07.2 - Precordial pain Attestations Medical Necessity Statement*: Patient require continuation hospitalization for above defined care. 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
--- NOTE | 2020-05-19 18:11 | W.PM.OPSUD ---
Surgery/Procedure H&P Update DATE OF PROCEDURE: May 19, 2020 DATE H&P PERFORMED: 05/19/20 H&P UPDATE INFORMATION: I have examined patient prior to procedure PREOP DIAGNOSIS: Dynamic EKG changes with worsening of chest pain suspicious for unstable angina or in-stent thrombosis PLANNED PROCEDURE: Operation Date: 05/19/20 08:25 Proposed Procedures p Cardiac Catheterization(Left) - Dylan Wakefield MD PATIENT REASSESSED PRIOR TO SEDATION, WITH NO CHANGE NOTED: Yes PHYSICAL EXAM: alert, oriented x 3 and regular rate & rhythm OTHER PERTINENT EXAM FINDINGS: Mild inspiratory crackles AIRWAY EVAL/ANESTHESIA PLAN: ASA II
--- NOTE | 2020-05-19 18:20 | PC.NURSE ---
talia on floor. decided to take pt back to hospital laboratory technician. hospital laboratory technician team here to get patient.
--- NOTE | 2020-05-19 18:43 | PC.NURSE ---
pt back from entry level lab technician via bed. sheath connected to pressure bag. site clean, dry and no hematoma. call light within reach, will continue to monitor.
[2020-05-19 19:47] LABS: Partial Thromboplastin Time 33.1 SECONDS (23.9-36.7)
--- NOTE | 2020-05-19 19:51 | PC.NURSE ---
Called to verify Aggrastat order. Ordered to not give Aggrastat and d/c order.
--- NOTE | 2020-05-19 21:39 | ECG_ITS ---
[facility] Test Date: 2020-05-19 Pat Name: Hardeep Rodriguez Department: Room: 105 Gender: Male Biological Engineer: : 1945 Requested By: Dylan Wakefield Order Number: [id number] Jacki MD: Aida West M.D. Measurements Intervals [place] Rate: 77 P: 60 IA: 137 QRS: 42 QRSD: 92 T: 49 QT: 353 QTc: 400 Interpretive Statements SINUS RHYTHM WITH SINUS ARRHYTHMIA ST ELEVATION, CONSIDER INFERIOR INJURY [MARKED ST ELEVATION W/O NORMALLY INFLECTED T WAVE IN II/aVF] ACUTE CT Diffuse ST changes, consider early polarization/pericarditis Compared to ECG 05/19/2020 17:41:54 Myocardial infarct finding now present Electronically Signed On 05-20-2020 19:22:55 COLLECTOR OF AQUARIUM SPECIMENS by Aida West M.D. [id number]
--- NOTE | 2020-05-19 22:07 | PC.NURSE ---
Addendum entered by Margaret Jenkins RN 05/19/20 22:09: Patient tolerated procedure well and vital signs remain stable. Original Note: Sheath removed from right groin at 2044. Manual pressure held for 20 minutes. Small hematoma of 1 cm noted after sheath pull. Manual pressure held another 10 minutes. Hematoma is now soft. Site is WNL. Dressing applied. Will monitor. Patient educated on post-cath activity restrictions and verbalized understanding.
[2020-05-19] MEDS: ketorolac 30 mg/mL INJ 15 MG IVP (22:47)
[2020-05-19] MEDS: LORazepam 2 mg/mL INJ 1 mL 1 MG IVP (22:47)
[2020-05-20] VITALS (12 sets, daily range): BP systolic 105–154; BP diastolic 54–91; PULSE 62–114; RESP 15–28; TEMP 36.3–37.2; O2SAT 93–97
--- NOTE | 2020-05-20 03:39 | PC.NURSE ---
NURSES NOTE: POST CARDIAC SHEATH REMOVAL: PT ALERT AND ORIENTED X4, MOVES ALL EXTREMITIES AND FOLLOWS ALL COMMANDS. VSS. UP WITH SBA X1. WALKED HALF OF HALLWAY AND BACK TO ROOM WITH NO COMPLICATIONS. RIGHT GROIN CATH SITE CLEAN, DRY, AND INTACT. NO NEW DRAINAGE NOTED. CURRENTLY RESTING WITH EYES CLOSED. RESPIRATIONS EVEN AND NON LABORED. ALL VS AND ASSESSMENTS CHARTED.
--- NOTE | 2020-05-20 07:00 | PC.NURSE ---
pt sitting on the side of the bed. pt denied any chest pain. pt eating breakfast, no needs identified at this time. call light within reach, will continue to monitor.
--- NOTE | 2020-05-20 07:27 | USCV_ITS ---
JenniferHardeep Age: 75 Gender: M : 1945 Exam Date: 05/20/2020 08:26 Ordering Phys: Dylan Wakefield MD ([email or web address]) Technologist: Chanel Pete [place] [facility] [place]: post cath BP: 111 / 57 HR: 84 Rhythm: Sinus Technical Quality: Adequate MEASUREMENTS (Male / Female) Normal Values 2D ECHO LV Diastolic Diameter PLAX 3.6 cm 4.2 - 5.9 / 3.9 - 5.3 cm LV Systolic Diameter PLAX 2.0 cm LV Chamber Size 2.6 cm IVS Diastolic Thickness 1.5 cm 0.6 - 1.0 / 0.6 - 0.9 cm IVS Systolic Thickness 1.8 cm LVPW Diastolic Thickness 1.5 cm 0.6 - 1.0 / 0.6 - 0.9 cm LVPW Systolic Thickness 1.7 cm RV Chamber Size 2.6 cm LVOT Diameter 2.1 cm LV Ejection Fraction 2D Teich 77.3 % LV Ejection Fraction MOD 2C 51.8 % LV Ejection Fraction 2C AL 51.0 % LA Diameter 4.0 cm LA Width 4.1 cm LA Height 4.6 cm RA Width 2.7 cm RA Height 4.3 cm M-MODE Aortic Annulus Diameter 5.4 cm LA Ao Ratio MM 0.8 MV E Point Septal Separation 3.7 cm FINDINGS Left Ventricle Normal left ventricular cavity size. Normal left ventricular systolic function. Normal left ventricular size and systolic function, EF 62 %. Right Ventricle The right ventricle is normal in size and function. RVSP could not be calculated due to incomplete tricuspid regurgitation velocity profile. Right Atrium The right atrium is normal in size. Left Atrium The left atrium is normal in size. Mitral Valve Moderately thickened mitral valve. Severe mitral annular calcification. No mitral valve stenosis. Aortic Valve Moderate aortic valve calcification. No aortic valve stenosis. No aortic valve regurgitation. Tricuspid Valve Structurally normal tricuspid valve without significant stenosis or regurgitation. Pulmonary artery systolic pressure is normal. Pulmonic Valve Structurally normal pulmonic valve without significant stenosis. There is no pulmonic regurgitation. Pericardium Normal pericardium without effusion. Aorta Normal ascending aorta dimension. CONCLUSIONS 1-Normal left ventricular cavity size. Normal left ventricular systolic function. Normal left ventricular size and systolic function, EF 62 %. 2-Moderately thickened mitral valve. Severe mitral annular calcification. No mitral valve stenosis. 3-Moderate aortic valve calcification. No aortic valve stenosis. No aortic valve regurgitation. 4-The right ventricle is normal in size and function. RVSP could not be calculated due to incomplete tricuspid regurgitation velocity profile. 5-Cannot compared with the prior exam due to poor quality study. Dylan Wakefield MD (Electronically Signed) Final Date: 21 May 2020 18:57 S
[2020-05-20] MEDS: pantoprazole DR 40 mg Tablet PO (08:38)
[2020-05-20] MEDS: aspirin 81 mg EC Tablet PO (08:38)
[2020-05-20] MEDS: apixaban 5 mg Tablet PO ×2 (08:38→17:31)
[2020-05-20] MEDS: clopidogrel 75 mg Tablet PO (08:38)
[2020-05-20 09:56] LABS: Hematocrit 40.1 % (42.0-52.0); Hemoglobin 13.2 g/dL (11.7-16.6); Mean Corpuscular HGB Conc 32.9 g/dL (30.0-36.0); Mean Corpuscular Hemoglobin 30.7 pg (28.0-34.0); Mean Corpuscular Volume 93.3 fL (80-94); Mean Platelet Volume 10.2 fL (7.4-10.4); Platelet Count 157 10^3/cmm (130-400); Red Cell Distribution Width 12.4 % (12.1-15.1); White Blood Count 14.3 10^3/uL (4.0-10.0)
[2020-05-20 10:08] LABS: Lymphocytes 8 %; Monocytes Absolute 1.1 10^3/cmm (0.1-0.6); Platelet Estimate Normal (Normal); Segmented Neutrophils 84 %; Total Cells Counted 100 (0-100)
[2020-05-20 10:10] LABS: Eosinophils 0 %
[2020-05-20 10:25] LABS: Alanine Aminotransferase 15 U/L (0-41); Albumin Level 3.8 g/dL (3.5-5.2); Alkaline Phosphatase 66 IU/L (40-130); Anion Gap 11.6 (5-19); Aspartate Amino Transferase 15 U/L (0-40); Blood Urea Nitrogen 25 mg/dL (8-23); Calcium 9.2 mg/dL (8.5-10.5); Carbon Dioxide 31 mmol/L (22-29); Chloride 98 mmol/L (98-107); Globulin 2.6 g/dL (1.3-4.6); Glucose 161 mg/dL (65-115); Osmolality Calculated 292 mOsm/kg (285-295); Potassium 3.6 mmol/L (3.5-5.1); Sodium 137 mmol/L (136-145); Total Bilirubin 0.8 mg/dL (0.15-1.2); Total Protein 6.4 g/dL (6.6-8.7)
--- NOTE | 2020-05-20 15:49 | PC.NURSE ---
Dr melgar at bedside verbal instructions to dc osei. removed osei cath intact patient tolerated well
--- NOTE | 2020-05-20 17:27 | ECG_ITS ---
[facility] Test Date: 2020-05-20 Pat Name: Hardeep Rodriguez Department: Room: 105 Gender: Male Stiff Neck Loader: : 1945 Requested By: Dylan Wakefield Order Number: [id number] Jacki MD: Aida West M.D. Measurements Intervals [place] Rate: 77 P: 47 DE: 140 QRS: 23 QRSD: 91 T: 32 QT: 341 QTc: 388 Interpretive Statements SINUS RHYTHM WITH SINUS ARRHYTHMIA MARKED ST ELEVATION, CONSIDER INFERIOR INJURY [MARKED ST ELEVATION W/O NORMALLY INFLECTED T WAVE IN II/aVF] ACUTE [place] Diffuse ST changes, consider early polarization/pericarditis Compared to ECG 05/19/2020 21:44:11 No significant changes Electronically Signed On 05-20-2020 19:29:00 DUPLICATE MAKER by Aida West M.D. [id number]
--- NOTE | 2020-05-20 18:15 | PM.PN ---
Subjective Subjective: Interval history: No more chest pain feeling much better stable vital salazar Vitals/I&O/Wt Last Vital Signs Temp 97.4 F L 05/20/20 14:50 Pulse 70 05/20/20 14:50 Resp 24 H 05/20/20 14:50 BP 114/54 05/20/20 14:50 Pulse Ox 96 05/20/20 14:50 05/20/20 05/20/20 05/20/20 06:59 14:59 22:59 Intake Total 150 / 1655 480 / 480 360 / 840 Output Total 1000 / 4250 800 / 800 400 / 1200 Balance -850 / -2595 -320 / -320 -40 / -360 Weight last 48 hrs Weight 195 lb Physical Exam Narrative: EXAM NARRATIVE: GENERAL: Patient is alert, awake and oriented x3. HEENT: No cyanosis. No icterus. No pallor. HEART: Regular S1 and S2. No murmur, rub or gallop. LUNGS: Decreased breath sound bilaterally. ABDOMEN: Soft, nontender and nondistended. Positive bowel sounds. No guarding, rebound or tenderness. CENTRAL NERVOUS SYSTEM: Grossly nonfocal. EXTREMITIES: Lower extremities without edema bilaterally. Pulses palpable in the lower extremities, both dorsalis pedis and posterior tibial. Const: COMMON NORMALS: alert Neuro: SENSORIUM/ORIENTATION: Yes alert Urinary Catheter Management^: Silva: Cath Placed During This Visit: yes, but has since been removed by the nurse Reason for Continuing Indwelling Catheter: Acute Urinary Retention or Obstruction Urinary Catheter Date of Insertion: 05/19/20 Urinary Catheter Time of Insertion: 10:45 Date Urinary Catheter Removed: 05/20/20 Time Urinary Catheter Discontinued: 13:00 Data : 05/20/20 09:45 05/20/20 09:45 A&P Assessment and plan (1) Chest pain: No more chest pain status post PCI to mid LAD and PDA. Continue aspirin statin beta-kkii restart apixaban. Continue Protonix Status: Acute Qualifiers: Chest pain type: precordial pain Qualified Code(s): R07.2 - Precordial pain (2) Pericarditis: Acute pericarditis as evident by the EKGs and off-and-on chest pain. Toradol as needed continue Protonix, continue morphine. Feeling much better. Echocardiogram pending Status: Acute Attestations Medical Necessity Statement*: Require continuation hospitalization for above defined care. Coding Level of Care Code Established Pt Acute Source Water Protection Specialist for Chg Fwd Patient Type Established History Detailed Exam Detailed Medical Decision Making Moderate Complexity Diagnoses Chest pain R07.2 Chest pain type: precordial pain Pericarditis I31.9
[2020-05-20] MEDS: atorvastatin 40 mg Tablet PO (20:07)
[2020-05-20] MEDS: morphine 4 mg/mL SDV 1 mL IVP (21:00)
[2020-05-21] VITALS (7 sets, daily range): BP systolic 102–116; BP diastolic 52–59; PULSE 52–68; RESP 15–26; TEMP 36–37.1; O2SAT 95–96
--- NOTE | 2020-05-21 00:45 | PC.NURSE ---
RATE AND RHYTHM CHANGE NURSES NOTE: AT 2200 PT HAD SUSTAINED HEART RATE BETWEEN 120'S AND 140'S RHYTHM CHANGED FROM SINUS TACHYCARDIA TO AFIB. PT C/O THROBBING IN THROAT AND MILD CHEST PAIN. MORPHINE 4MG GIVEN AND CALL PLACED TO DR. GANNON. RECEIVED ORDERS FOR AMIODARONE BOLUS AND AMIODARONE GTT. AMIODARONE GTT STARTED AT 2220. AT 2300, PT CONVERTED TO SINUS RHYTHM ON THE MONITOR /RATE IN THE 60'S. WAITED APPROXIMATELY 45 MIN TO VERIFY SUSTAINED RATE AND RHYTHM; PLACED CALL TO DR. GANNON AT 2345. RECEIVED ORDERS TO RUN AMIODARONE AT 0.5MG/MIN. AND THEN START ON METOPROLOL 12.5MG PO BID. AMIODARONE TITRATED TO 0.5MG/MIN AT 0000. CURRENTLY RESTING WITH EYES CLOSED; DENIES PAIN; NO DISTRESS NOTED AT THIS TIME. ALL VS AND ASSESSMENTS CHARTED.
[2020-05-21] MEDS: metoprolol tartrate 25 mg Tablet 12.5 MG PO ×2 (09:16→18:34)
[2020-05-21] MEDS: aspirin 81 mg EC Tablet PO (09:16)
[2020-05-21] MEDS: pantoprazole DR 40 mg Tablet PO (09:16)
[2020-05-21] MEDS: apixaban 5 mg Tablet PO ×2 (09:17→18:33)
[2020-05-21] MEDS: clopidogrel 75 mg Tablet PO (09:17)
[2020-05-21 11:31] LABS: Basophils % 0.2 %; Eosinophils # 0.1 10^3/uL (0.0-0.8); Eosinophils % 0.6 %; Hematocrit 42.8 % (42.0-52.0); Hemoglobin 13.8 g/dL (11.7-16.6); Lymphocytes # 2.2 10^3/uL (0.8-4.8); Lymphocytes % 16.9 %; Mean Corpuscular HGB Conc 32.2 g/dL (30.0-36.0); Mean Corpuscular Hemoglobin 30.7 pg (28.0-34.0); Mean Corpuscular Volume 95.3 fL (80-94); Mean Platelet Volume 10.2 fL (7.4-10.4); Monocytes % 7.4 %; Neutrophils # 9.72 10^3/uL (1.8-7.7); Neutrophils % 74.4 %; Nucleated Red Blood Cells % 0 %; Platelet Count 180 10^3/cmm (130-400); Red Blood Count 4.49 10^6/uL (4.1-5.3); Red Cell Distribution Width 12.4 % (12.1-15.1); White Blood Count 13.1 10^3/uL (4.0-10.0)
[2020-05-21 11:45] LABS: Anion Gap 13.9 (5-19); Blood Urea Nitrogen 22 mg/dL (8-23); Calcium 9.3 mg/dL (8.5-10.5); Carbon Dioxide 27 mmol/L (22-29); Chloride 103 mmol/L (98-107); Glucose 121 mg/dL (65-115); Osmolality Calculated 295 mOsm/kg (285-295); Potassium 3.9 mmol/L (3.5-5.1); Sodium 140 mmol/L (136-145)
[2020-05-21] MEDS: atorvastatin 40 mg Tablet PO (20:11)
--- NOTE | 2020-05-21 20:19 | PM.PN ---
Subjective Subjective: Interval history: Had episode of A. fib with RVR terminated by amiodarone he converted back into sinus rhythm. He denies any chest pain. Heart rate is stable blood pressure is also within normal limit Medications: Reviewed: Yes Vitals/I&O/Wt Last Vital Signs Temp 98.8 F 05/21/20 15:56 Pulse 62 05/21/20 15:56 Resp 26 H 05/21/20 15:56 BP 110/54 05/21/20 15:56 Pulse Ox 96 05/21/20 15:56 05/21/20 05/21/20 05/21/20 06:59 14:59 22:59 Intake Total 261.075 / 1101.075 782.803 / 782.803 360 / 1142.803 Output Total 550 / 2200 500 / 500 450 / 950 Balance -288.925 / -1098.925 282.803 / 282.803 -90 / 192.803 Physical Exam Narrative: EXAM NARRATIVE: GENERAL: Patient is alert, awake and oriented x3. HEENT: No cyanosis. No icterus. No pallor. HEART: Regular S1 and S2. No murmur, rub or gallop. LUNGS: Decreased breath sound bilaterally. ABDOMEN: Soft, nontender and nondistended. Positive bowel sounds. No guarding, rebound or tenderness. CENTRAL NERVOUS SYSTEM: Grossly nonfocal. EXTREMITIES: Lower extremities without edema bilaterally. Const: COMMON NORMALS: alert Neuro: SENSORIUM/ORIENTATION: Yes alert Urinary Catheter Management^: Silva: Cath Placed During This Visit: yes, but has since been removed by the nurse Reason for Continuing Indwelling Catheter: Acute Urinary Retention or Obstruction Urinary Catheter Date of Insertion: 05/19/20 Urinary Catheter Time of Insertion: 10:45 Date Urinary Catheter Removed: 05/20/20 Time Urinary Catheter Discontinued: 13:00 Data : 05/21/20 11:18 05/21/20 11:18 A&P Assessment and plan (1) Chest pain: Denies any more chest pain status post PCI to mid LAD and PDA. Continue current regimen aspirin statin beta-kiki is added. Echocardiogram showed normal ejection fraction Status: Acute Qualifiers: Chest pain type: precordial pain Qualified Code(s): R07.2 - Precordial pain (2) Pericarditis: Denies any more chest pain. Continue to monitor Status: Acute (3) Atrial fibrillation: Patient had episode of atrial fibrillation terminated with amiodarone. We will switch him to oral medicine. 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 Status: Acute Attestations Medical Necessity Statement*: Went into A. fib with RVR overnight requiring optimization of medicine therefore he needs to stay 1 more night. Coding Level of Care Code Established Pt Acute Financial Aid Administrator for g Fwd Patient Type Established History Expanded Problem Focused Exam Expanded Problem Focused Medical Decision Making Moderate Complexity Diagnoses Chest pain R07.2 Chest pain type: precordial pain Pericarditis I31.9 Atrial fibrillation I48.91
[2020-05-22 00:25] VITALS: BP 116/59; PULSE 88; RESP 15; TEMP 36.1; O2SAT 96
[2020-05-22 07:06] VITALS: BP 110/59; PULSE 65; RESP 19; TEMP 37; O2SAT 91
[2020-05-22] MEDS: clopidogrel 75 mg Tablet PO (08:01)
[2020-05-22] MEDS: pantoprazole DR 40 mg Tablet PO (08:02)
[2020-05-22] MEDS: metoprolol tartrate 25 mg Tablet 12.5 MG PO ×2 (08:02→17:08)
[2020-05-22] MEDS: aspirin 81 mg EC Tablet PO (08:02)
[2020-05-22] MEDS: apixaban 5 mg Tablet PO ×2 (08:02→17:08)
--- NOTE | 2020-05-22 09:20 | PC.SOCIAL ---
IMM Page 2 of IMM explained to and signed by patient. He verbalizes understanding. Initialed, dated, and timed and placed in chart. Copy provided to patient.
[2020-05-22 11:14] VITALS: BP 113/57; PULSE 62; RESP 24; TEMP 36.4; O2SAT 96
--- NOTE | 2020-05-22 12:02 | PC.CHAP ---
Pastoral Care Encounter/Spiritual Assessment Type of Contact [] Declined podiatry doctor visit [] Patient/Family/Request visit [] Outpatient visit [] Follow-up visit [] Physician referral [] Code/Alert [xx] Routine visit [] Staff referral [] Actively dying [] Patient sleeping [] Family support [] [] Out of room [] Palliative care [] [] Receiving care in room [] Pre-surgical visit [] Trauma [] Long length of stay [] ICU visit [] Other: Relational/Emotional Strength [xx] Patient feels connected with others/family/visitors/staff [] Distress [] Loneliness/isolation [] Abandonment Spirituality of Patient [] Person of Shakira [] Attends Muslim of their Shakira [xx] Believes in Prayer [] Reads Bible or Methodist materials [] There are Spiritual issues to be addressed Drum Drier Interventions [xx] Prayer [xx] Active listening [xx] Non-anxious presence [] Spiritual/emotional support [] Crisis/trauma care [] Spiritual counseling [] Bereavement support [] Provided bereavement packet [] Provided Bible/devotional materials [] Provided toy/stuffed animal, coloring book to patient or family member [] Provided Communion [] Anointing/[place] [] Salvation [xx] Completed spiritual assessment [] Other: Impact on Illness or Injury [] Angry [] Fearful [] Anxious [] Often cries [] Exhaustion [] Unable to work [] Unable to attend mormon [] Unable to walk/stand [] Unable to read [] Unable to drive [] Unable to eat/drink [] Unable to sleep [] Unable to be with family [] Patient intubated [] Other: Summary Pt has not attended sikh in years but still has shakira and he prays. Disillusioned with churches. Time spent with patient 5 minutes Drum Drier aMrtine Talbert
--- NOTE | 2020-05-22 14:00 | PC.NURSE ---
Ambulation Pt ambulated around in his room. Denies any pain or shortness of breath. HR-60-70 range, spo2 97% on room air.
--- NOTE | 2020-05-22 15:29 | P.DS_ITS ---
Discharge Providers Date of Admission: 05/19/20 13:37 Date of Discharge: May 22, 2020 Attending Provider at Admission: Dylan Wakefield MD Attending Provider at Discharge: Dylan Wakefield MD Primary Care Provider: Pete Dunne MD Diagnoses at Discharge Discharge Diagnosis (1) Chest pain: Status: Acute Qualifiers: Chest pain type: precordial pain Qualified Code(s): R07.2 - Precordial pain (2) Pericarditis: Status: Acute (3) Atrial fibrillation: Status: Acute Reason for Visit Reason for Visit: Trouble breathing, Cp Hospital Course Hospital Course: 75-year-old male past medical history significant for pulmonary embolism, DVT presented with chest pain with dynamic Q changes ST elevation in the inferolateral leads with questionable repolarization abnormality pericarditis or acute coronary syndrome. Patient was taken to the Manufacturing Sales Representative as pain was not relieved with pain medicine. He was found to have more than 80% mid LAD and PDA. Drug-eluting stents were placed in the mid LAD and PDA. Postop patient continues to have off-and-on chest pain towards the night and it got worsened with bursts of EKG with ST elevation in the inferolateral and high lateral leads. He was taken back to the Manufacturing Sales Representative he was found to have patent previously placed stents. It was also thought patient may has pericarditis also. Toradol was given after that patient got relief. Over next 24-hour he developed A. fib with RVR treated with amiodarone and converted back to sinus rhythm after 2 to 3 hours. His medicine was optimized. Metoprolol was started currently is in sinus rhythm. He occasionally feels some chest pain upon laying down otherwise denies any complaint. He is walking around. Echocardiogram was performed which showed mildly reduced ejection fraction of 50%. He will be discharged home. Physical Exam Narrative: EXAM NARRATIVE: GENERAL: Patient is alert, awake and oriented x3. HEENT: No cyanosis. No icterus. No pallor. HEART: Regular S1 and S2. No murmur, rub or gallop. LUNGS: Decreased breath sound bilaterally. ABDOMEN: Soft, nontender and nondistended. Positive bowel sounds. No guarding, rebound or tenderness. CENTRAL NERVOUS SYSTEM: Grossly nonfocal. EXTREMITIES: Lower extremities without edema bilaterally. Const: COMMON NORMALS: alert Neuro: SENSORIUM/ORIENTATION: Yes alert Urinary Catheter Management^: Silva: Cath Placed During This Visit: yes, but has since been removed by the nurse Reason for Continuing Indwelling Catheter: Acute Urinary Retention or Obstruction Urinary Catheter Date of Insertion: 05/19/20 Urinary Catheter Time of Insertion: 10:45 Date Urinary Catheter Removed: 05/20/20 Time Urinary Catheter Discontinued: 13:00 Discharge Data Data Completed and Pending: Completed Studies During Hospitalization Category Date Time Status XR chest 1V rama ble 15016 Stat Exams 05/19/20 06:49 Completed CV echo complete* [id number] Routine Ultrasound 05/19/20 12:16 Completed CV echo limited 9 3308 Routine Ultrasound 05/20/20 07:27 Completed Pending at discharge Category Date Time Status SHOT HOLE DRILLER request for service Routin e Exams 05/19/20 17:50 Taken SHOT HOLE DRILLER request for service Urgent Exams 05/19/20 08:19 Taken Vitals: Last Vital Signs Temp 97.5 F L 05/22/20 11:14 Pulse 62 05/22/20 11:14 Resp 24 H 05/22/20 11:14 BP 113/57 05/22/20 11:14 Pulse Ox 96 05/22/20 11:14 Discharge Plan Discharge Patient Disposition: Home Condition: Stable Prescriptions: New clopidogrel 75 mg Tablet 75 mg PO DAILY Qty: 90 RF: 4 pantoprazole 40 mg Tablet,Delayed Release (Dr/Ec) 40 mg PO DAILY Qty: 90 RF: 4 metoprolol tartrate 25 mg Tablet 12.5 mg PO BID Qty: 60 RF: 4 atorvastatin 40 mg Tablet 40 mg PO BEDTIME Qty: 30 RF: 4 colchicine 0.6 mg capsule 0.6 mg PO DAILY Qty: 7 RF: 0 Continued Eliquis 5 mg tablet 5 mg PO BID RF: 0 vardenafil 20 mg tablet 20 mg PO PRN RF: 0 Vitamin D3 1 cap PO DAILY RF: 0 Discharge Orders: Discharge Order (Routine); Ordered 05/22/20 Ordered By: Dylan Wakefield Referrals: Pete Dunne MD [Primary Care Provider] - Discharge Diet: Cardiac Discharge Activity: Increase activity as tolerated, Limit activity as instructed and Use walker/crutches as instructed Patient Instructions: Left Heart Catheterization (DC), Coronary Angioplasty (DC) Activity Restrictions/Additional Instructions: Follow-up with Marycarmen Maradiaga in 7 days, Dr. Wakefield in 4-week. 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
--- NOTE | 2020-05-22 15:53 | PC.NURSE ---
Pt requested meds to bed [facility] pharmacy is the choice for pt as he requested prior to discharge.
[2020-05-22 15:55] VITALS: BP 129/66; PULSE 70; RESP 18; TEMP 36.2; O2SAT 97
[2020-05-22 16:16] VITALS: BP 129/66; PULSE 70; RESP 18; O2SAT 97
--- NOTE | 2020-05-22 17:19 | PC.NURSE ---
Discharge to home Instructed pt to follow-up with his pcp, senior catering sales manager next week. Educated pt on new meds actions, possible side effects, dosing and timing and duration. Pt teaches back. Post home care instructions and activity restrictions discussed to pt. Discharge packet provided to pt. New meds brought by pharmacy at bedside. Ushered pt via bed.
== END 2020-05-22 17:28 | disposition home or self-care (01) | DRG 246 ==
LOC: ER 07:30 → CCL 12:18 → CSU 05-22 15:28
PROVIDERS: Family Medicine; Admitting Provider Internal Medicine Cardiovascular Disease; PCP Family Medicine; Visit Provider Internal Medicine Cardiovascular Disease
PROC: 027137Z Dilation of Coronary Artery, Two Arteries with Four or More Drug-eluting Intraluminal Devices, Percutaneous Approach (ICD-10-PCS; principal; 2020-05-19 08:25)
PROC: 027137Z Dilation of Coronary Artery, Two Arteries with Four or More Drug-eluting Intraluminal Devices, Percutaneous Approach (ICD-10-PCS; 2020-05-19 08:25)
DX: I25.119 Atherosclerotic heart disease of native coronary artery with unspecified angina pectoris (principal); I31.9 Disease of pericardium, unspecified; E55.9 Vitamin D deficiency, unspecified; Z86.718 Personal history of other venous thrombosis and embolism; Z86.711 Personal history of pulmonary embolism; Z79.01 Long term (current) use of anticoagulants; I48.91 Unspecified atrial fibrillation
CPT/HCPCS: 12345; 36415; 71045; 80048; 80053; 84484; 85007; 85025; 85027; 85347; 85610; 85730; 93005; 93306; 93308; 93454; 96375; 99284; C1725; C1769; C1874; C1887; C1894; C9600; C9601; J0282; J1644; J1885; J1940; J2060; J2250; J2270; J2405; J3010; J3246; J3490; J7030; J7060; Q9967

== ENCOUNTER → 2020-05-29 12:14 | Outpatient (BNVA) | payer MEDICARE, BC, SELFPAY | PROVIDERS: PCP Family Medicine; Visit Provider Nurse Practitioner Family | DX: I25.10 Atherosclerotic heart disease of native coronary artery without angina pectoris (principal) | CPT/HCPCS: 80048 ==

== ENCOUNTER → 2020-06-08 09:55 | Outpatient (BNVA) | payer MEDICARE, SELFPAY | PROVIDERS: PCP Family Medicine; Referring Provider Family Medicine; Visit Provider Urology | DX: N52.9 Male erectile dysfunction, unspecified (principal); N52.1 Erectile dysfunction due to diseases classified elsewhere | CPT/HCPCS: 81003 ==

== ENCOUNTER 2020-07-21 00:42 | Emergency (ER) | payer MEDICARE, BC, SELFPAY ==
[2020-07-21] VITALS (13 sets, daily range): BP systolic 116–140; BP diastolic 71–89; PULSE 66–100; RESP 0–24; TEMP 36.7; O2SAT 93–98; BMI 30.4
--- NOTE | 2020-07-21 00:45 | XRR_ITS ---
PROCEDURE INFORMATION: Exam: XR Chest, 1 View Exam date and time: 07/21/2020 1:00 AM Age: 75 years old Clinical indication: Chest pain; Type not specified; Prior surgery; Surgery type: Stents; Additional info: Cp TECHNIQUE: Imaging protocol: XR of the chest Views: 1 view. COMPARISON: CR XR chest 1V portable [id number] 05/19/2020 7:09 AM FINDINGS: Lungs: Minor atelectasis or scarring of the lower lungs. Pleural space: Unremarkable. No pleural effusion. No pneumothorax. Heart/Mediastinum: Cardiac enlargement. Bones/joints: Degenerative change of the spine. Surgical changes of the left shoulder. Degenerative arthritis of both shoulders. XR/XR chest 1V portable [id number] IMPRESSION: Minor atelectasis or scarring lower lungs.
--- NOTE | 2020-07-21 00:45 | ECG_ITS ---
[facility] Test Date: 2020-07-21 Pat Name: Hardeep Rodriguez Department: Room: Gender: Male Property Master: : 1945 Requested By: Gigi Garcia Order Number: [id number] Reading MD: JAY GANNON Measurements Intervals [place] Rate: 85 P: 269 [place]: 177 QRS: 51 QRSD: 106 T: -89 QT: 347 QTc: 413 Interpretive Statements Atrial flutter INTERPRETATION BASED ON A DEFAULT AGE OF 40 YEARS Compared to ECG 05/20/2020 17:32:50 T-wave abnormality now present Possible ischemia now present Sinus rhythm no longer present Sinus arrhythmia no longer present ST (T wave) deviation no longer present Myocardial infarct finding no longer present Electronically Signed On 07-21-2020 19:58:41 JAVA SYSTEMS ANALYST by JAY GANNON [id number] f
--- NOTE | 2020-07-21 00:53 | ED_ITS ---
HPI - Chest Pain General: Chief Complaint: Chest Pain Stated Complaint: Chest Pain Time Seen by Provider: 07/21/20 00:45 Source: patient Mode of arrival: ambulatory Limitations: no limitations History of Present Illness: HPI narrative: 75-year-old male has history of DVT along with pulmonary embolism and had stents placed in May. He states transient pain this evening that was pressure type pain in the center of her chest that was a bandlike pressure around his chest. He states this felt the same as it did in May. He has had some slight dyspnea. Denies any wors ening or improving factors. Denies any vomiting or diarrhea. Associated symptoms: Deny abdominal pain, dyspnea, fever(s), nausea or vomiting Review of Systems Const: Denies: fever(s), chills, body aches or change in appetite Eyes: Denies: blurry vision or eye discomfort ENMT: Denies: throat pain or dental pain Card: Reports: chest pain Resp: Denies: dyspnea GI: Denies: abdominal pain, nausea, vomiting or diarrhea : Denies: dysuria Musc: Denies: neck pain or back pain Skin/Breast: Denies: rash Neuro: Denies: headache(s) Psych: Denies: depression Neville/Lymph: Denies: easy bruising All/Imm: Denies: urticaria PFSH ED PFSH: Medical History Atrial fibrillation and flutter Coronary artery disease Erectile dysfunction GERD (gastroesophageal reflux disease) History of DVT (deep vein thrombosis) History of pulmonary embolism Obstructive sleep apnea Pulmonary embolism Surgical History Hx of appendectomy Hx of rotator cuff surgery BILATERAL Family History Mother Diabetes Stroke Father Diabetes Social History Smoking and tobacco status: never smoked Alcohol intake: current Alcohol intake frequency: holidays/special occasions only Adopted: No Caregiver/support person: No Lives independently: No Household members: spouse Marital status: Current occupational status: employed 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 Physical Exam Const: COMMON NORMALS: no acute distress, patient oriented x3 and healthy appearing HENMT: COMMON NORMALS: normocephalic and atraumatic HEAD & SCALP: normocephalic and atraumatic Eye: COMMON NORMALS: Equal, round and reactive pupils present and EOMs intact bilaterally PUPIL: Yes Equal, round and reactive pupils present Neck/C-Spine: COMMON NORMALS: full ROM and supple Chest: COMMONS NORMALS: normal inspection of the chest and normal palpation of entire chest wall Resp: COMMON NORMALS: normal respiratory effort, No retractions, No use of accessory muscles and clear to auscultation bilaterally AUSCULTATION: clear to auscultation bilaterally Cardio: COMMON NORMALS: regular rate, regular rhythm and No murmurs present (Cardio) RATE: regular rate RHYTHM: regular rhythm GI: COMMON NORMALS: Normal to inspection, nondistended, normoactive bowel sounds present, Soft to palpation, non-tender and no masses PALPATION: Yes Soft to palpation Extremity: COMMON NORMALS: normal to inspection and full ROM Neuro: COMMON NORMALS: patient oriented x3, moves all extremities and no focal motor deficits Psych: COMMON NORMALS: mental status grossly normal, Normal thought process present and cooperative THOUGHT PROCESS: Normal thought process present Skin: COMMON NORMALS: no rashes or lesions noted and no wounds GENERAL SKIN EXAM: no rashes or lesions noted Course Vital Signs: Vital signs: Vital Signs Pulse Rate 86 07/21/20 03:45 Respiratory Rate 22 H 07/21/20 03:45 Blood Pressure 140/89 07/21/20 03:45 Pulse Oximetry 93 07/21/20 03:45 MDM - Chest Pain MDM Narrative: Medical decision making narrative: Patient presents here with chest pain that is since resolved. His initial repeat troponin here negative. I did offer him admission but he states he feels improved and would like to follow-up with Dr. López outpatient. Will discharge patient by informed if he has any pain he is to return immediately. He has no signs of pulmonary embolism. Patient understands and agrees to the plan. Lab Data: Labs: Lab Results 07/21/20 07/21/20 07/21/20 Range/Units 00:50 00:50 00:50 WBC 9.6 (4.0-10.0) 10^3/ uL RBC 4.72 (4.1-5.3) 10^6/u L Hgb 14.4 (11.7-16.6) g/dL Hct 44.3 (42.0-52.0) % MCV 93.9 (80-94) fL MCH 30.5 (28.0-34.0) pg MCHC 32.5 (30.0-36.0) g/dL RDW 12.2 (12.1-15.1) % Plt Count 173 (130-400) 10^3/c mm MPV 10.6 H (7.4-10.4) fL Neut % (Auto) 62.6 % Lymph % (Auto) 27.9 % [place] % (Auto) 7.2 % Eos % (Auto) 1.7 % Baso % (Auto) 0.4 % Neut # (Auto) 5.99 (1.8-7.7) 10^3/u L Lymph # (Auto) 2.7 (0.8-4.8) 10^3/u L [place] # (Auto) 0.7 (0.2-0.9) 10^3/u L Eos # (Auto) 0.2 (0.0-0.8) 10^3/u L Baso # (Auto) 0.0 (0.0-0.1) 10^3/u L Nucleated RBC % (a uto) 0 % Nucleated RBCs # 0.0 /100WBC D-Dimer (0-0.59) ug/mIFE U Sodium 141 (136-145) mmol/L Potassium 3.8 (3.5-5.1) mmol/L Chloride 103 (98-107) mmol/L Carbon Dioxide 30 H (22-29) mmol/L Anion Gap 11.8 (5-19) BUN 18 (8-23) mg/dL Creatinine 0.9 (0.7-1.2) mg/dL GFR Calculation Not Reportable Glucose 112 (65-115) mg/dL Calculated Osmolal ity 295 (285-295) mOsm/k g Calcium 9.2 (8.5-10.5) mg/dL Total Bilirubin 0.4 (0.15-1.2) mg/dL AST 14 (0-40) U/L ALT 12 (0-41) U/L Alkaline Phosphata se 93 (40-130) IU/L Troponin T Baselin e 14 (0-15) ng/L Troponin T 120 Min [place] (0-15) ng/L Delta Troponin T (0-10) ABS# Total Protein 6.6 (6.6-8.7) g/dL Albumin 4.2 (3.5-5.2) g/dL Globulin 2.4 (1.3-4.6) g/dL 07/21/20 07/21/20 Range/Units 00:50 02:31 WBC (4.0-10.0) 10^3/ uL RBC (4.1-5.3) 10^6/u L Hgb (11.7-16.6) g/dL Hct (42.0-52.0) % MCV (80-94) fL MCH (28.0-34.0) pg MCHC (30.0-36.0) g/dL RDW (12.1-15.1) % Plt Count (130-400) 10^3/c mm MPV (7.4-10.4) fL Neut % (Auto) % Lymph % (Auto) % [place] % (Auto) % Eos % (Auto) % Baso % (Auto) % Neut # (Auto) (1.8-7.7) 10^3/u L Lymph # (Auto) (0.8-4.8) 10^3/u L [place] # (Auto) (0.2-0.9) 10^3/u L Eos # (Auto) (0.0-0.8) 10^3/u L Baso # (Auto) (0.0-0.1) 10^3/u L Nucleated RBC % (a uto) % Nucleated RBCs # /100WBC D-Dimer 0.33 (0-0.59) ug/mIFE U Sodium (136-145) mmol/L Potassium (3.5-5.1) mmol/L Chloride (98-107) mmol/L Carbon Dioxide (22-29) mmol/L Anion Gap (5-19) BUN (8-23) mg/dL Creatinine (0.7-1.2) mg/dL GFR Calculation Glucose (65-115) mg/dL Calculated Osmolal ity (285-295) mOsm/k g Calcium (8.5-10.5) mg/dL Total Bilirubin (0.15-1.2) mg/dL AST (0-40) U/L ALT (0-41) U/L Alkaline Phosphata se (40-130) IU/L Troponin T Baselin e (0-15) ng/L Troponin T 120 Min [place] 13.38 (0-15) ng/L Delta Troponin T -0.62 L (0-10) ABS# Total Protein (6.6-8.7) g/dL Albumin (3.5-5.2) g/dL Globulin (1.3-4.6) g/dL Imaging Data^: CXR: Attestation: I personally reviewed and interpreted this imaging study as follows: Radiologist's impression: no acute abnormality EKG Data^: EKG 1: Attestation: I personally reviewed and interpreted this EKG as follows: EKG interpretation date: 07/21/20 EKG interpretation time: 00:49 Interpretation: atrial flutter hr [address] or t wave abnormalities qrs 106 qtc 389 EKG 2: Attestation: I personally reviewed and interpreted this EKG as follows: EKG interpretation date: 07/21/20 EKG interpretation time: 03:03 Interpretation: atrial flutter hr [address] or t wave abnormalities qrs 103 qtc 417 Discharge Plan Discharge Patient Disposition: Home Clinical Impression: Chest pain Condition: Stable Prescriptions: No Action sildenafil 100 mg tablet 100 mg PO DAILY PRN (Reason: sexual activity) Qty: 20 RF: 12 diltiazem HCl 120 mg capsule,extended release 24 hr 120 mg PO DAILY Qty: 30 RF: 3 diltiazem HCl 60 mg capsule,extended release 12 hr 60 mg PO .bedtime Qty: 90 RF: 3 metoprolol tartrate 25 mg tablet 25 mg PO BID Qty: 60 RF: 4 Eliquis 5 mg tablet 5 mg PO BID RF: 0 Vitamin D3 1 cap PO DAILY RF: 0 clopidogrel 75 mg Tablet 75 mg PO DAILY Qty: 90 RF: 4 pantoprazole 40 mg Tablet,Delayed Release (Dr/Ec) 40 mg PO DAILY Qty: 90 RF: 4 atorvastatin 40 mg Tablet 40 mg PO BEDTIME Qty: 30 RF: 4 Discharge Orders: Discharge ED (Routine); Ordered 07/21/20 Ordered By: Gigi Garcia Referrals: Dylan Wkaefield MD [Physician] - 1-3 days Pete Dunne MD [Primary Care Provider] - Discharge Diet: Advance as tolerated Discharge Activity: Resume usual activity Patient Instructions: Chest Pain (ED) Coding Level of Care Code ED Gear Keeper for Chg Fwd Exam Comprehensive
[2020-07-21] MEDS: aspirin 81 mg Chew Tablet 324 MG PO (01:00)
--- NOTE | 2020-07-21 01:06 | PC.NURSE ---
pt refused Morphine, pt stated I cannot pee after it and it makes me feel like I'm out there? Notified provider
[2020-07-21 01:13] LABS: D Dimer 0.33 ug/mIFEU (0-0.59)
[2020-07-21 01:14] LABS: Alanine Aminotransferase 12 U/L (0-41); Albumin Level 4.2 g/dL (3.5-5.2); Alkaline Phosphatase 93 IU/L (40-130); Anion Gap 11.8 (5-19); Aspartate Amino Transferase 14 U/L (0-40); Blood Urea Nitrogen 18 mg/dL (8-23); Calcium 9.2 mg/dL (8.5-10.5); Carbon Dioxide 30 mmol/L (22-29); Chloride 103 mmol/L (98-107); Globulin 2.4 g/dL (1.3-4.6); Glucose 112 mg/dL (65-115); Osmolality Calculated 295 mOsm/kg (285-295); Potassium 3.8 mmol/L (3.5-5.1); Sodium 141 mmol/L (136-145); Total Bilirubin 0.4 mg/dL (0.15-1.2); Total Protein 6.6 g/dL (6.6-8.7)
[2020-07-21 01:16] LABS: Troponin(5th) Baseline 14 ng/L (0-15)
[2020-07-21 01:20] LABS: Basophils % 0.4 %; Eosinophils # 0.2 10^3/uL (0.0-0.8); Eosinophils % 1.7 %; Hematocrit 44.3 % (42.0-52.0); Hemoglobin 14.4 g/dL (11.7-16.6); Lymphocytes # 2.7 10^3/uL (0.8-4.8); Lymphocytes % 27.9 %; Mean Corpuscular HGB Conc 32.5 g/dL (30.0-36.0); Mean Corpuscular Hemoglobin 30.5 pg (28.0-34.0); Mean Corpuscular Volume 93.9 fL (80-94); Mean Platelet Volume 10.6 fL (7.4-10.4); Monocytes # 0.7 10^3/uL (0.2-0.9); Monocytes % 7.2 %; Neutrophils # 5.99 10^3/uL (1.8-7.7); Neutrophils % 62.6 %; Nucleated Red Blood Cells % 0 %; Platelet Count 173 10^3/cmm (130-400); Red Blood Count 4.72 10^6/uL (4.1-5.3); Red Cell Distribution Width 12.2 % (12.1-15.1); White Blood Count 9.6 10^3/uL (4.0-10.0)
--- NOTE | 2020-07-21 01:55 | PC.NURSE ---
Report to [facility]. Pt stated pain 2/10, slight SOA. Waiting for results.
--- NOTE | 2020-07-21 02:45 | ECG_ITS ---
[facility] Test Date: 2020-07-21 Pat Name: Hardeep Rodriguez Department: Room: Gender: Male Drier Feeder: : 1945 Requested By: Gigi Garcia Order Number: [id number] Reading MD: JAY GANNON Measurements Intervals [place] Rate: 64 P: [place]: QRS: 53 QRSD: 103 T: 2 QT: 408 QTc: 421 Interpretive Statements ATRIAL FLUTTER/TACHYCARDIA NONSPECIFIC T-WAVE ABNORMALITY ABNORMAL RHYTHM ECG Compared to ECG 05/20/2020 17:32:50 T-wave abnormality now present Sinus rhythm no longer present Sinus arrhythmia no longer present ST (T wave) deviation no longer present Myocardial infarct finding no longer present Electronically Signed On 07-21-2020 20:01:13 COMMUNITY OUTREACH ADVOCATE by JAY GANNON [id number]
[2020-07-21 03:13] LABS: Troponin 5 2HR 13.38 ng/L (0-15)
[2020-07-21 03:17] LABS: Troponin 5 2HR Delta -0.62 ABS# (0-10)
== END 2020-07-21 04:05 | disposition home or self-care (01) ==
PROVIDERS: Emergency Provider Emergency Medicine; PCP Family Medicine
DX: R07.9 Chest pain, unspecified (principal); Z79.01 Long term (current) use of anticoagulants; Z79.02 Long term (current) use of antithrombotics/antiplatelets; I48.91 Unspecified atrial fibrillation; I25.10 Atherosclerotic heart disease of native coronary artery without angina pectoris; Z86.711 Personal history of pulmonary embolism
CPT/HCPCS: 12345; 36415; 71045; 80053; 84484; 85025; 85378; 93005; 96374; 99283; 99284; J2270

== ENCOUNTER → 2020-08-02 08:31 | Outpatient (BNVA) | payer MEDICARE, BC, SELFPAY | PROVIDERS: PCP Family Medicine; Visit Provider Internal Medicine Cardiovascular Disease | DX: I48.91 Unspecified atrial fibrillation (principal); I48.92 Unspecified atrial flutter; Z11.59 Encounter for screening for other viral diseases | CPT/HCPCS: 87635 ==

== ENCOUNTER 2020-08-04 14:03 | Inpatient (IN) | payer MEDICARE, BC, SELFPAY ==
[2020-08-04 14:09] VITALS: BP 129/79; PULSE 74; RESP 18; TEMP 36.3; O2SAT 94; BMI 30.4
[2020-08-04 14:16] VITALS: BP 121/94; PULSE 69; RESP 29; O2SAT 93
--- NOTE | 2020-08-04 15:03 | ECG_ITS ---
[facility] Test Date: 2020-08-04 Pat Name: Hardeep Rodriguez Department: Room: Gender: Male Human Resource Professional: : 1945 Requested By: James Jordan Order Number: [id number] Echeverria MD: Aida West M.D. Measurements Intervals [place] Rate: 74 P: [place]: QRS: 7 QRSD: 98 T: -32 QT: 339 QTc: 378 Interpretive Statements ATRIAL FLUTTER WITH VARIABLE BLOCK MODERATE T-WAVE ABNORMALITY, CONSIDER INFERIOR ISCHEMIA [-0.1+ mV T WAVE IN II/aVF] Compared to ECG 07/21/2020 03:03:08 Possible ischemia now present T-wave abnormality still present Electronically Signed On 08-04-2020 20:00:03 COLLAR TURNER OPERATOR by Aida West M.D. [id number] f
--- NOTE | 2020-08-04 15:03 | XR_ITS ---
WS: [id number] PORTABLE CHEST HISTORY: cp COMPARISON: 07/21/2020 Bibasilar areas of atelectasis. These are new since 07/21/2020. No pleural effusion or pneumothorax. Cardiac size: Normal. Mediastinum/Aorta: Mild atherosclerosis aorta. Bilateral single anchor repairs involving the rotator cuff. Degenerative changes at the glenohumeral joints and AC joints. XR/XR chest 1V portable [id number] IMPRESSION: New bibasilar areas of atelectasis.
--- NOTE | 2020-08-04 15:43 | W.ED.CHESTPA ---
HPI - Chest Pain General: Chief Complaint: Chest Pain Stated Complaint: CP Time Seen by Provider: 08/04/20 15:28 History of Present Illness: HPI narrative: The patient is a 75-year-old male with past medical history atrial flutter, factor V Leiden deficiency, and history of DVT and PEs, coronary artery disease with stenting. He comes to the ER complaining of chest pain and shortness of breath he says it is the worst in his right lower chest wall however he has pain across his entire anterior chest. He took 3 nitroglycerin 4 hours ago which did not improve his pain. He has had atrial flutter since he got stents placed on May 19, 2020 and has been in atrial flutter ever since. He has been following Dr. Wakefield for this who has him scheduled for a cardioversion but today the chest pain and shortness of breath worsened prompting him to come to the emergency room. MD complaint: chest pain Pertinent past history: coronary artery disease and prior MO Timing of current episode: episodic Prior episodes: Yes Onset: during rest and during exertion Pain location: right chest Severity: moderate Quality: sharp Relieving factors: nothing and other (diltiazem) Exacerbating factors: nothing Associated symptoms: Reports dyspnea and palpitations; Deny abdominal pain, fever(s), nausea or vomiting Treatment prior to arrival: nitroglycerin Review of Systems General: Reports: 10 or more systems reviewed and unremarkable except in HPI and below Const: Denies: fever(s) Eyes: Denies: change in vision, blurry vision or eye redness ENMT: Denies: throat pain, swelling of lips/tongue, ear or mastoid pain or nasal congestion Card: Reports: chest pain and palpitations; Denies: irregular heart rhythm, edema or orthopnea Resp: Reports: dyspnea; Denies: productive cough or non-productive cough GI: Denies: abdominal pain, nausea or vomiting : Denies: flank pain, urinary frequency or urinary urgency Musc: Denies: neck pain, back pain, extremity pain, joint pain, joint redness, limited range of motion or muscle weakness Skin/Breast: Denies: rash, pruritus, erythema, skin pain or skin tenderness Neuro: Denies: headache(s), numbness in extremities, weakness in extremities, sensory changes, difficulty walking, dizziness, confusion or Slurred speech present Psych: Denies: anxiety or depression Endo: Denies: polyuria All/Imm: Denies: urticaria, throat swelling or tongue swelling PFSH ED PFSH: Medical History (Updated 08/04/20 @ 19:29 by James Jordan MD) Atrial fibrillation and flutter Coronary artery disease Erectile dysfunction GERD (gastroesophageal reflux disease) History of DVT (deep vein thrombosis) History of pulmonary embolism Obstructive sleep apnea Pulmonary embolism Surgical History Hx of appendectomy Hx of rotator cuff surgery BILATERAL Family History Mother Diabetes Stroke Father Diabetes Social History Smoking and tobacco status: never smoked Alcohol intake: current Alcohol intake frequency: holidays/special occasions only Adopted: No Caregiver/support person: No Lives independently: No Household members: spouse Marital status: Current occupational status: employed 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 Physical Exam Const: COMMON NORMALS: no acute distress, average body habitus, patient oriented x3, no limitations, healthy appearing, alert and well nourished GENERAL APPEARANCE: cooperative, comfortable, well kempt and well developed ORIENTATION/CONSCIOUSNESS: Yes awake, Yes oriented to person, Yes oriented to place and Yes oriented to time HENMT: COMMON NORMALS: normocephalic, external ears normal and Normal external nose present HEAD & SCALP: normal to inspection and normocephalic NOSE: Normal external nose present EXTERNAL EAR: Yes external ears normal MOUTH: Normal oral and palatal mucosa present THROAT: posterior oropharynx normal Eye: COMMON NORMALS: Equal, round and reactive pupils present and EOMs intact bilaterally GENERAL EYE: appearance normal, both eyes and all related structures PUPIL: Yes Equal, round and reactive pupils present Neck/C-Spine: COMMON NORMALS: full ROM, no lymphadenopathy, no meningeal signs and no JVD GENERAL: Yes normal visual inspection Lymph: LYMPHATIC: no lymphadenopathy noted Chest: COMMONS NORMALS: normal inspection of the chest and normal palpation of entire chest wall Resp: COMMON NORMALS: normal respiratory effort, No retractions, No use of accessory muscles, clear to auscultation bilaterally and percussion normal EFFORT & INSPECTION: Yes able to speak in complete sentences AUSCULTATION: clear to auscultation bilaterally PERCUSSION: percussion normal Cardio: COMMON NORMALS: no JVD, regular rate, S1 normal heart sound present, S2 normal heart sound present and Peripheral pulses 2+ throughout RATE: regular rate RHYTHM: abnormal rhythm (atrial flutter) HEART SOUNDS: S1 normal heart sound present and S2 normal heart sound present PERIPHERAL PULSES: Peripheral pulses 2+ throughout GI: COMMON NORMALS: Normal to inspection, nondistended, normoactive bowel sounds present, Soft to palpation, non-tender and no masses INSPECTION: Yes normal to inspection PALPATION: Yes Soft to palpation : COMMON NORMALS: Yes no CVA tenderness BLADDER/KIDNEY EXAM: Yes no CVA tenderness Back/Pelvis: COMMON NORMALS: no CVA tenderness, thoracic and lumbar spine normal to inspection, no thoracic nor lumbar tenderness and thoraco-lumbar ROM normal Extremity: COMMON NORMALS: normal to inspection, full ROM, capillary refill normal, no joint enlargement and no pedal edema GENERAL: Yes normal exam except as noted Neuro: COMMON NORMALS: patient oriented x3, CN's II-XII intact bilaterally, moves all extremities, no focal motor deficits, no sensory deficits noted and gait normal SENSORIUM/ORIENTATION: Yes alert, Yes oriented to person, Yes oriented to place and Yes oriented to time MENINGEAL SIGNS: Yes no meningeal signs Psych: COMMON NORMALS: mental status grossly normal, Normal thought process present, cooperative, normal affect and speech normal APPEARANCE: Yes well kempt ATTITUDE: Yes calm SPEECH: Yes normal speech THOUGHT PROCESS: Normal thought process present Skin: COMMON NORMALS: no rashes or lesions noted GENERAL SKIN EXAM: no rashes or lesions noted Course Vital Signs: Vital signs: Vital Signs Temperature 97.3 F L 08/04/20 14:09 Pulse Rate 99 08/04/20 18:00 Respiratory Rate 24 H 08/04/20 18:00 Blood Pressure 133/74 08/04/20 18:00 Pulse Oximetry 95 08/04/20 18:00 MDM - Chest Pain MDM Narrative: Medical decision making narrative: The patient came in complaining of right-sided chest pain and shortness of breath related to his atrial flutter. Discussed with Dr. De La Paz who recommended admitting him overnight and possibly cardioverting him in the morning. Discussed with Dr. Calvert who accepts for admission. Lab Data: Labs: Lab Results 01/19/21 01/19/21 01/19/21 Range/Units 15:52 15:52 15:52 WBC 13.4 H (4.0-10.0) 10^3/ uL RBC 4.77 (4.1-5.3) 10^6/u L Hgb 14.5 (11.7-16.6) g/dL Hct 44.7 (42.0-52.0) % MCV 93.7 (80-94) fL MCH 30.4 (28.0-34.0) pg MCHC 32.4 (30.0-36.0) g/dL RDW 12.4 (12.1-15.1) % Plt Count 186 (130-400) 10^3/c mm MPV 9.8 (7.4-10.4) fL Neut % (Auto) 78.1 % Lymph % (Auto) 13.6 % [place] % (Auto) 7.4 % Eos % (Auto) 0.3 % Baso % (Auto) 0.2 % Neut # (Auto) 10.49 H (1.8-7.7) 10^3/u L Lymph # (Auto) 1.8 (0.8-4.8) 10^3/u L [place] # (Auto) 1.0 H (0.2-0.9) 10^3/u L Eos # (Auto) 0.0 (0.0-0.8) 10^3/u L Baso # (Auto) 0.0 (0.0-0.1) 10^3/u L Nucleated RBC % (a uto) 0 % Nucleated RBCs # 0.0 /100WBC PT 16.40 H (12.1-14.9) SECO NDS INR 1.28 H (0.8-1.2) D-Dimer 1.01 H (0-0.59) ug/mIFE U Sodium 137 (136-145) mmol/L Potassium 4.3 (3.5-5.1) mmol/L Chloride 101 (98-107) mmol/L Carbon Dioxide 26 (22-29) mmol/L Anion Gap 14.3 (5-19) BUN 19 (8-23) mg/dL Creatinine 0.8 (0.7-1.2) mg/dL GFR Calculation Not Reportable Glucose 110 (65-115) mg/dL Calculated Osmolal ity 287 (285-295) mOsm/k g Calcium 9.4 (8.5-10.5) mg/dL Total Bilirubin 0.7 (0.15-1.2) mg/dL AST 11 (0-40) U/L ALT 11 (0-41) U/L Alkaline Phosphata se 85 (40-130) IU/L Troponin T Baselin e (0-15) ng/L Troponin T 120 Min [place] (0-15) ng/L Delta Troponin T (0-10) ABS# NT-Pro-B Natriuret Pep 368 H (0-125) pg/mL Total Protein 6.9 (6.6-8.7) g/dL Albumin 4.0 (3.5-5.2) g/dL Globulin 2.9 (1.3-4.6) g/dL Urine Color (Yellow) Urine Appearance (CLEAR) Urine pH (5-7) Ur Specific Gravit y (1.005-1.030) Urine Protein (Negative) Urine Glucose (UA) (Normal) Urine Ketones (Negative) Urine Blood (Negative) Urine Nitrate (Negative) Urine Bilirubin (Negative) Urine Urobilinogen (Negative) mg/dL Ur Leukocyte Bobbi ase (Negative) 08/04/20 08/04/20 08/04/20 Range/Units 15:52 16:10 17:53 WBC (4.0-10.0) 10^3/ uL RBC (4.1-5.3) 10^6/u L Hgb (11.7-16.6) g/dL Hct (42.0-52.0) % MCV (80-94) fL MCH (28.0-34.0) pg MCHC (30.0-36.0) g/dL RDW (12.1-15.1) % Plt Count (130-400) 10^3/c mm MPV (7.4-10.4) fL Neut % (Auto) % Lymph % (Auto) % [place] % (Auto) % Eos % (Auto) % Baso % (Auto) % Neut # (Auto) (1.8-7.7) 10^3/u L Lymph # (Auto) (0.8-4.8) 10^3/u L [place] # (Auto) (0.2-0.9) 10^3/u L Eos # (Auto) (0.0-0.8) 10^3/u L Baso # (Auto) (0.0-0.1) 10^3/u L Nucleated RBC % (a uto) % Nucleated RBCs # /100WBC PT (12.1-14.9) SECO NDS INR (0.8-1.2) D-Dimer (0-0.59) ug/mIFE U Sodium (136-145) mmol/L Potassium (3.5-5.1) mmol/L Chloride (98-107) mmol/L Carbon Dioxide (22-29) mmol/L Anion Gap (5-19) BUN (8-23) mg/dL Creatinine (0.7-1.2) mg/dL GFR Calculation Glucose (65-115) mg/dL Calculated Osmolal ity (285-295) mOsm/k g Calcium (8.5-10.5) mg/dL Total Bilirubin (0.15-1.2) mg/dL AST (0-40) U/L ALT (0-41) U/L Alkaline Phosphata se (40-130) IU/L Troponin T Baselin e 11 (0-15) ng/L Troponin T 120 Min [place] 10.12 (0-15) ng/L Delta Troponin T -0.88 L (0-10) ABS# NT-Pro-B Natriuret Pep (0-125) pg/mL Total Protein (6.6-8.7) g/dL Albumin (3.5-5.2) g/dL Globulin (1.3-4.6) g/dL Urine Color Yellow (Yellow) Urine Appearance Clear (CLEAR) Urine pH 5.0 (5-7) Ur Specific Gravit y 1.020 (1.005-1.030) Urine Protein Neg (Negative) Urine Glucose (UA) Norm (Normal) Urine Ketones Negative (Negative) Urine Blood Neg (Negative) Urine Nitrate Negative (Negative) Urine Bilirubin Neg (Negative) Urine Urobilinogen 1 H (Negative) mg/dL Ur Leukocyte Bobbi ase Negative (Negative) Discharge Plan Discharge Clinical Impression: Atrial flutter Condition: Stable Prescriptions: No Action sildenafil 100 mg tablet 100 mg PO DAILY PRN (Reason: sexual activity) Qty: 20 RF: 12 nitroglycerin [Nitrostat] 0.4 mg tablet, sublingual 0.4 mg sublingual Q5M PRN (Reason: chest pain) Qty: 25 RF: 6 Eliquis 5 mg tablet 5 mg PO BID@07, RF: 0 atorvastatin 40 mg Tablet 40 mg PO BEDTIME Qty: 30 RF: 4 ibuprofen 200 mg Tablet 400 mg PO PRN RF: 0 Vitamin D3 50 mcg (2,000 unit) Capsule 50 mcg PO BID RF: 0 diltiazem HCl 240 mg capsule,extended release 24 hr 240 mg PO DAILY@07 RF: 0 clopidogrel 75 mg tablet 75 mg PO DAILY@07 RF: 0 pantoprazole 40 mg tablet,delayed release (DR/EC) 40 mg PO DAILY@07 RF: 0 metoprolol tartrate 50 mg tablet 50 mg PO Q12H RF: 0 Referrals: Pete Dunne MD [Primary Care Provider] - Coding Level of Care Code ED Crm Administrator for Chg Fwd Exam Comprehensive
[2020-08-04 16:00] VITALS: BP 118/76; PULSE 70; RESP 20; O2SAT 95
[2020-08-04 16:02] LABS: Basophils % 0.2 %; Eosinophils % 0.3 %; Hematocrit 44.7 % (42.0-52.0); Hemoglobin 14.5 g/dL (11.7-16.6); Lymphocytes # 1.8 10^3/uL (0.8-4.8); Lymphocytes % 13.6 %; Mean Corpuscular HGB Conc 32.4 g/dL (30.0-36.0); Mean Corpuscular Hemoglobin 30.4 pg (28.0-34.0); Mean Corpuscular Volume 93.7 fL (80-94); Mean Platelet Volume 9.8 fL (7.4-10.4); Monocytes % 7.4 %; Neutrophils # 10.49 10^3/uL (1.8-7.7); Neutrophils % 78.1 %; Nucleated Red Blood Cells % 0 %; Platelet Count 186 10^3/cmm (130-400); Red Blood Count 4.77 10^6/uL (4.1-5.3); Red Cell Distribution Width 12.4 % (12.1-15.1); White Blood Count 13.4 10^3/uL (4.0-10.0)
[2020-08-04 16:16] LABS: Add Urine Microscopic? NO
[2020-08-04 16:20] LABS: Bilirubin Urine Neg (Negative); Blood Urine Neg (Negative); Glucose Urine UA Norm (Normal); Ketones Urine Negative (Negative); Leukocyte Esterase Urine Negative (Negative); Nitrate Urine Negative (Negative); Protein Urine Neg (Negative); Urine Appearance Clear (CLEAR); Urine Color Yellow (Yellow); Urobilinogen Urine 1 mg/dL (Negative)
[2020-08-04 16:22] LABS: INR 1.28 (0.8-1.2)
[2020-08-04 16:25] LABS: D Dimer 1.01 ug/mIFEU (0-0.59)
[2020-08-04 16:37] LABS: Troponin(5th) Baseline 11 ng/L (0-15)
[2020-08-04 16:47] LABS: Alanine Aminotransferase 11 U/L (0-41); Alkaline Phosphatase 85 IU/L (40-130); Anion Gap 14.3 (5-19); Aspartate Amino Transferase 11 U/L (0-40); Blood Urea Nitrogen 19 mg/dL (8-23); Calcium 9.4 mg/dL (8.5-10.5); Carbon Dioxide 26 mmol/L (22-29); Chloride 101 mmol/L (98-107); Globulin 2.9 g/dL (1.3-4.6); Glucose 110 mg/dL (65-115); NT Pro B Type Natriuretic Pept 368 pg/mL (0-125); Osmolality Calculated 287 mOsm/kg (285-295); Potassium 4.3 mmol/L (3.5-5.1); Sodium 137 mmol/L (136-145); Total Bilirubin 0.7 mg/dL (0.15-1.2); Total Protein 6.9 g/dL (6.6-8.7)
--- NOTE | 2020-08-04 16:55 | CTR_ITS ---
PROCEDURE INFORMATION: Exam: CT Angiography Chest With Contrast Exam date and time: 08/04/2020 5:10 PM Age: 75 years old Clinical indication: Chest pain; Prior surgery; Surgery type: Stents; Additional info: R/O pe TECHNIQUE: Imaging protocol: Computed tomographic angiography of the chest with intravenous contrast. 3D rendering (Not supervised by radiologist): MIP and/or 3D reconstructed images were created by the technologist. Total images: 838 Radiation optimization: All CT scans at this facility use at least one of these dose optimization techniques: automated exposure control; mA and/or kV adjustment per patient size (includes targeted exams where dose is matched to clinical indication); or iterative reconstruction. Contrast material: OMNI 350; Contrast volume: 82 ml; Contrast route: INTRAVENOUS (IV); COMPARISON: CR XR chest 1V portable [id number] 08/04/2020 3:14 PM RADIATION DOSE METRICS: Total DLP (mGy-cm): 546.27 FINDINGS: Pulmonary arteries: No visible evidence of pulmonary embolism/pulmonary arterial thrombus. Aorta: The thoracic aorta is nonaneurysmal. Mild arterial sclerotic disease. Lungs: Very small volume subsegmental alveolar airspace disease posterior basal segment bilateral lower lobes, right more involved than left. This finding most likely reflects atelectasis and/or focal edema although pneumonia remains a differential consideration. Minimal atelectasis base of the right middle lobe and lingula. Evidence of COPD/chronic bronchitis. Pleural space: Scant right pleural effusion. Heart: Advanced 3 vessel coronary artery disease. Small volume pericardial effusion. Mild cardiomegaly. Lymph nodes: No visible evidence of active mediastinal or hilar lymphadenopathy. Few calcified complexes of antecedent granulomatous disease. Bones/joints: No visible acute osseous abnormality. Degenerative disease and degenerative disc disease. Soft tissues: Unremarkable. CT/CT angio chest PE protcl [id number] IMPRESSION: 1. No visible evidence of pulmonary embolism/pulmonary arterial thrombus. 2. Very small volume subsegmental alveolar airspace disease posterior basal segment bilateral lower lobes, right more involved than left. This finding most likely reflects atelectasis and/or focal edema although pneumonia remains a differential consideration. 3. Minimal atelectasis base of the right middle lobe and lingula. 4. Evidence of COPD/chronic bronchitis. 5. Scant right pleural effusion. 6. Advanced 3 vessel coronary disease. 7. Small volume pericardial effusion. 8. Mild cardiomegaly. Radiation Dose CTDIVOL = (mGy): DLP = 546.27 (mGy-cm)
--- NOTE | 2020-08-04 17:03 | ECG_ITS ---
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 Measurements Intervals [place] Rate: 87 P: HI: QRS: 24 QRSD: 93 T: -65 QT: 385 QTc: 466 Interpretive Statements ATRIAL FLUTTER/TACHYCARDIA MODERATE T-WAVE ABNORMALITY, CONSIDER INFERIOR ISCHEMIA [-0.1+ mV T WAVE IN II/aVF] Compared to ECG 08/04/2020 14:14:20 No significant changes Electronically Signed On 08-04-2020 22:26:30 COASTAL AND ESTUARY SPECIALIST by Aida West M.D. [id number]
[2020-08-04 17:07] VITALS: BP 108/72; PULSE 72; RESP 18; O2SAT 93
[2020-08-04] MEDS: iohexol 350 mg/mL 100 mL Btl IV (17:21)
--- NOTE | 2020-08-04 17:26 | P.CONIM_ITS ---
Providers/Reason For Consult Consulting Physican/Specialty*: Adi De La Paz/ Cardiology Reason for Consult*: Chest pain Primary Care Provider: Pete Dunne MD History of Present Illness History of Present Illness 75 year old male presented today with chief complaint of shortness of breath and chest discomfort. Patient has history of atrial fibrillation/flutter since May 2020, underwent left heart catheterization by Dr. Wakefield 05/19/20 for chest pain and changes. He underwent PCI of LAD and PDA. He continued having chest pain postprocedure and was taken back to Director Of Solutions Architecture which did not reveal any significant disease or stent thrombosis. Patient has had been experiencing symptoms of chest discomfort and shortness of breath with atrial flutter for which his metoprolol dose was increased to 50 mg twice a day and cardizem 240 mg daily. Patient has seen Dr. Wakefield this month as well for symptomatic atrial flutter, plan was to electively schedule him for cardioversion, patient has been taking Eliquis for last 2 to 3 years for factor V Leyden mutation. According to patient he started noticing severe chest pain yesterday. It was all across his chest. [place] like muscle spasm and radiated to the jaw as well. Since starting it has been coming on and off. There is some pleuritic component to it is changing position and breathing worsens it. However as soon as he starts to move the pain gets worse. Review of Systems Const: Reports: chills, body aches and fatigue; Denies: fever(s) Eyes: Denies: change in vision ENMT: Denies: throat pain Card: Reports: chest pain, palpitations, irregular heart rhythm, lightheadedness, dyspnea on exertion and orthopnea Resp: Reports: dyspnea and pain on inspiration GI: Denies: abdominal pain : Denies: flank pain Musc: Denies: neck pain Skin/Breast: Denies: rash Neuro: Denies: headache(s) Psych: Denies: anxiety Endo: Denies: polyuria Neville/Lymph: Denies: easy bruising All/Imm: Denies: urticaria Meds/Allergies Home Medications and Allergies Home Medications Medication Instructions Recorded Confirmed Last Taken Type Eliquis 5 mg PO BID@07,05/19/20 08/04/20 08/04/20 07:00 History atorvastatin 40 mg PO BEDTIME #30 tab 05/22/20 08/04/20 08/03/20 Rx sildenafil 100 mg tablet 100 mg PO DAILY PRN #20 tab 06/08/20 08/04/20 Unknown Rx nitroglycerin 0.4 mg sublingual 0.4 mg SUBLINGUAL Q5M PRN #25 tab 07/22/20 08/04/20 08/04/20 Rx tablet cholecalciferol (vitamin D3) 50 mcg PO BID 08/04/20 08/04/20 08/04/20 History [Vitamin D3] clopidogrel 75 mg PO DAILY@08/04/20 08/04/20 08/04/20 History diltiazem HCl 240 mg PO DAILY@08/04/20 08/04/20 08/04/20 History ibuprofen 400 mg PO PRN 08/04/20 08/04/20 08/04/20 History metoprolol tartrate 50 mg PO Q12H 08/04/20 08/04/20 08/04/20 History pantoprazole 40 mg PO DAILY@08/04/20 08/04/20 08/04/20 07:00 History Allergies Allergy/AdvReac Type Severity Reaction Status Date / Time morphine Allergy Mild mental Verified 08/04/20 16:09 status change PFSH Acute PFSH: Medical History Atrial fibrillation and flutter Coronary artery disease Erectile dysfunction GERD (gastroesophageal reflux disease) History of DVT (deep vein thrombosis) History of pulmonary embolism Obstructive sleep apnea Pulmonary embolism Surgical History Hx of appendectomy Hx of rotator cuff surgery BILATERAL Family History Mother Diabetes Stroke Father Diabetes Social History Smoking and tobacco status: never smoked Alcohol intake: current Alcohol intake frequency: holidays/special occasions only Adopted: No Caregiver/support person: No Lives independently: No Household members: spouse Marital status: Current occupational status: employed 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 [] NECK: No jugular vein distension. [] HEENT: No cyanosis. No icterus. No pallor. [] HEART: Regular S1 and S2. No murmur, rub or gallop. [] LUNGS: Clear to auscultate bilaterally. [] ABDOMEN: Soft, nontender and nondistended. Positive bowel sounds. No guarding, rebound or tenderness. [] CENTRAL NERVOUS SYSTEM: Grossly nonfocal. [] EXTREMITIES: Lower extremities with no edema bilaterally. Pulses palpable in the lower extremities, both dorsalis pedis and posterior tibial. [] A&P Assessment and plan (1) Chest pain: Status: Resolved (2) Atrial flutter: Status: Acute (3) History of DVT (deep vein thrombosis): Status: Acute Patient has history of significant coronary artery disease with stents is to LAD and PDA in May 2020. He has presented with severe chest pain. He has both typical and atypical features. It radiates to jaw and present all across the chest. However is worsened with breathing and movement. Di fferentials will be CAD versus pericarditis. Given his recent PCI, severe substernal chest pain we will proceed with ruling out CAD with coronary angiogram in the morning. If it turns out to be normal, he will be put on therapy for pericarditis. Plan was for cardioversion, his rate is well controlled at this time. Continue anticoagulation. We will switch Eliquis to heparin drip Continue aspirin and Plavix. Order echocardiogram Further recommendations after coronary angiogram was performed. Coding Level of Care Code Acute Software Developer Manager for Segundo Zuñigad Diagnoses Chest pain R07.9 Atrial flutter I48.92 History of DVT (deep vein thrombosis) Z86.718
[2020-08-04 18:00] VITALS: BP 133/74; PULSE 99; RESP 24; O2SAT 95
[2020-08-04 18:45] LABS: Troponin 5 2HR 10.12 ng/L (0-15)
[2020-08-04 18:54] LABS: Troponin 5 2HR Delta -0.88 ABS# (0-10)
--- NOTE | 2020-08-04 19:26 | P.HP_ITS ---
Providers/Chief Complaint Primary Care Provider: Pete Dunne MD Chief Complaint: CP History of Present Illness Hardeep Rodriguez is a 75 year old male presented today with chief complaint of shortness of breath and chest discomfort. Patient has history of atrial fibrillation/flutter since May 2020, underwent left heart catheterization by Dr. Wakefield 05/19/20 for persistent chest pain however no significant disease noted in left main, LAD, circumflex or RCA, stents were patent. Patient has had been experiencing symptoms of chest discomfort and shortness of breath with atrial flutter for which his metoprolol dose was increased to 50 mg twice a day and cardizem 240 mg daily. Patient has seen Dr. Wakefield this month as well for sym ptomatic atrial flutter, plan was to electively schedule him for cardioversion, patient has been taking Eliquis for last 2 to 3 years for factor V Leyden mutation. Patient presented to the hospital today because of worsening of symptoms. His symptoms worsened in last 48 hours which he is describing as sharp right sided chest discomfort, gets worse on deep breathing or any kind of movement & gets worse on laying flat, it feels like a belt squeezing his chest just below his rib cage, any kind of movement, and deep breathing would aggravate his pain and he feels like something is pushing against his chest. He has not noticed any fever, cough, vomiting, he has chronic numbness and tingling to upper extremities which has not changed recently, he has tried nitroglycerin which has not helped his symptoms however ibuprofen does seem to decrease the intensity of pain. Diagnostics in the ER revealed normal hemodynamics his heart rate has been fluctuating between 85-100, EKG showing atrial flutter pattern without ischemic or infarct changes, troponin not significantly high, cardiology consult has been placed, at the time my evaluation patient is hemodynamically stable complaining of right sided sharp pain in his subcostal area. requested TSH, magnesium level, serial troponins and EKG. Did talk with Dr. De La Paz as well Review of Systems Const: Reports: chills, body aches and fatigue; Denies: fever(s) Eyes: Denies: change in vision ENMT: Denies: throat pain Card: Reports: chest pain, palpitations, irregular heart rhythm, lightheadedness, dyspnea on exertion and orthopnea Resp: Reports: dyspnea and pain on inspiration GI: Denies: abdominal pain : Denies: flank pain Musc: Denies: neck pain Skin/Breast: Denies: rash Neuro: Denies: headache(s) Psych: Denies: anxiety Endo: Denies: polyuria Neville/Lymph: Denies: easy bruising All/Imm: Denies: urticaria Medications/Allergies Home Medications Medication Instructions Recorded Confirmed Last Taken Type Eliquis 5 mg PO BID@05/19/20 08/04/20 08/04/20 07:00 History atorvastatin 40 mg PO BEDTIME #30 tab 05/22/20 08/04/20 08/03/20 Rx sildenafil 100 mg tablet 100 mg PO DAILY PRN #20 tab 06/08/20 08/04/20 Unknown Rx nitroglycerin 0.4 mg sublingual 0.4 mg SUBLINGUAL Q5M PRN #25 tab 07/22/20 08/04/20 08/04/20 Rx tablet cholecalciferol (vitamin D3) 50 mcg PO BID 08/04/20 08/04/20 08/04/20 History [Vitamin D3] clopidogrel 75 mg PO DAILY@07 08/04/20 08/04/20 08/04/20 History diltiazem HCl 240 mg PO DAILY@07 08/04/20 08/04/20 08/04/20 History ibuprofen 400 mg PO PRN 08/04/20 08/04/20 08/04/20 History metoprolol tartrate 50 mg PO Q12H 08/04/20 08/04/20 08/04/20 History pantoprazole 40 mg PO DAILY@07 08/04/20 08/04/20 08/04/20 07:00 History Allergies Allergy/AdvReac Type Severity Reaction Status Date / Time morphine Allergy Mild mental Verified 08/04/20 16:09 status change PFSH Acute PFSH: Medical History Atrial fibrillation and flutter Coronary artery disease Erectile dysfunction GERD (gastroesophageal reflux disease) History of DVT (deep vein thrombosis) History of pulmonary embolism Obstructive sleep apnea Pulmonary embolism Surgical History Hx of appendectomy Hx of rotator cuff surgery BILATERAL Family History Mother Diabetes Stroke Father Diabetes Social History Smoking and tobacco status: never smoked Alcohol intake: current Alcohol intake frequency: holidays/special occasions only Adopted: No Caregiver/support person: No Lives independently: No Household members: spouse Marital status: Current occupational status: employed 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 Vitals/I&O/Wt Last Vital Signs Temp 97.3 F L 08/04/20 14:09 Pulse 99 08/04/20 18:00 Resp 24 H 08/04/20 18:00 BP 133/74 08/04/20 18:00 Pulse Ox 95 08/04/20 18:00 Weight last 48 hrs Weight 90.718 kg Physical Exam Narrative: EXAM NARRATIVE: Very pleasant elderly male who appears stated age Does not look dehydrated or fluid overloaded Saturating well on room air Patient was avoiding taking deep breaths because of pleuritic right-sided chest pain Variable S1-S2 no significant murmur appreciated Abdomen soft nontender bowel sounds present Lower extremity no edema gangrene or ulcer Patient was avoiding movement in his bed because of worsening of right-sided chest pain patient appear irritable and anxious EOMI, PERRLA no neurological deficit GCS 15 Skin without any ischemia gangrene or ulcer No joint swelling noticed Data : 08/04/20 15:52 08/04/20 15:52 A&P Assessment and plan (1) Atrial flutter: Status: Acute (2) Pleuritic chest pain: Status: Acute (3) Pericarditis: Status: Acute Additional A&P Information Pleuritic chest pain Patient has extensive history of coronary disease with recent left heart catheterization last year in May Currently his chest pain is consistent with pericarditis versus pleuritic etiology I would give him ketorolac 50 mg IV push, patient is endorsing response to ibuprofen more than nitroglycerin at home as well, however in case of persistent chest discomfort he might need another coronary angiogram considering his history, we will keep him n.p.o. Switch his Eliquis to heparin Echo in the morning CTA rule out PE which showed pericardial effusion as well, EKG is not consistent with typical pericarditis changes I do not believe at this time flutter is attributing the chest pain because heart rate right now is in 80s with normal hemodynamics and he is still complaining of right-sided sharp pleuritic chest pain, no urgent need of cardioversion appreciate Cardiology recommendations Atrial flutter Anticoagulate with heparin, rate control patient is stable no urgent need of cardioversion, in case he becomes unstable with his current rhythm threshold to do electrical cardioversion will be low Up with TSH and magnesium level BNP less than 400 no clinical signs of fluid overload N.p.o. after midnight DVT prophylaxis not indicated currently on heparin drip Full code Attestations Medical Necessity Statement*: Anticipating stay in the hospital across more than 2 midnights continued overnight monitoring for his persistent chest pain, high risk for needing cardioversion Time Spent in Patient Care: (>than 50% of time spent in counselling and/or direct pt care on unit) . 50mins Coding Level of Care Code Acute Resaw Carriage Operator for Segundo Tomas Diagnoses Atrial flutter I48.92 Pleuritic chest pain R07.81 Pericarditis I31.9
--- NOTE | 2020-08-04 21:03 | ECG_ITS ---
[facility] Test Date: 2020-08-05 Pat Name: Hardeep Rodriguez Department: Room: 102 Gender: Male Nremt: : 1945 Requested By: James Jordan Order Number: [id number] Jacki MD: Adi De La Paz M.D. Measurements Intervals [place] Rate: 128 P: ME: QRS: 16 QRSD: 90 T: 120 QT: 199 QTc: 290 Interpretive Statements ATRIAL FLUTTER/TACHYCARDIA WITH RAPID VENTRICULAR RESPONSE WITH ABERRANT CONDUCTION OR VENTRICULAR PREMATURE COMPLEXES POSSIBLE INFERIOR MYOCARDIAL INFARCTION [30 ms Q WAVE IN II/aVF], PROBABLY OLD ABNORMAL RHYTHM ECG Compared to ECG 08/04/2020 19:18:32 Ventricular premature complex(es) now present Myocardial infarct finding now present T-wave abnormality no longer present Possible ischemia no longer present Electronically Signed On 08-05-2020 18:14:20 FEEDLOT MANAGER by Adi De La Paz M.D. [id number]
[2020-08-04 22:08] VITALS: BP 125/81; PULSE 129; RESP 34; O2SAT 94
[2020-08-04] MEDS: HYDROmorphone 1 mg/mL INJ 1 mL 0.5 MG IVP (22:12)
[2020-08-04] MEDS: heparin drip 25,000 UNIT/500 ML PREMIX 25 UNIT IV (22:13)
--- NOTE | 2020-08-04 22:14 | PC.NURSE ---
Per ED physician do not give patient bolus dose of heparin, maintenance dose only.
[2020-08-05] VITALS (69 sets, daily range): BP systolic 96–140; BP diastolic 44–97; PULSE 70–129; RESP 6–41; TEMP 36.1–36.8; O2SAT 82–97
[2020-08-05] MEDS: HYDROmorphone 1 mg/mL INJ 1 mL IVP (00:22)
--- NOTE | 2020-08-05 00:52 | PC.NURSE ---
report called to Yung KRUEGER at 0020
[2020-08-05 01:57] LABS: Basophils # 0.1 10^3/uL (0.0-0.1); Basophils % 0.3 %; Eosinophils # 0.1 10^3/uL (0.0-0.8); Eosinophils % 0.4 %; Hemoglobin 13.5 g/dL (11.7-16.6); Lymphocytes # 2.1 10^3/uL (0.8-4.8); Lymphocytes % 12.5 %; Mean Corpuscular HGB Conc 32.9 g/dL (30.0-36.0); Mean Corpuscular Hemoglobin 30.2 pg (28.0-34.0); Mean Corpuscular Volume 91.7 fL (80-94); Mean Platelet Volume 10.3 fL (7.4-10.4); Monocytes # 1.1 10^3/uL (0.2-0.9); Monocytes % 6.7 %; Neutrophils # 13.29 10^3/uL (1.8-7.7); Neutrophils % 79.5 %; Nucleated Red Blood Cells % 0 %; Platelet Count 179 10^3/cmm (130-400); Red Blood Count 4.47 10^6/uL (4.1-5.3); Red Cell Distribution Width 12.2 % (12.1-15.1); White Blood Count 16.7 10^3/uL (4.0-10.0)
[2020-08-05 02:01] LABS: Partial Thromboplastin Time 55.6 SECONDS (23.9-36.7)
[2020-08-05] MEDS: metoprolol tartrate 50 mg Tablet PO ×2 (02:01→13:35)
[2020-08-05] MEDS: atorvastatin 40 mg Tablet PO ×2 (02:01→21:00)
[2020-08-05 02:03] LABS: Thyroid Stimulating Hormone 1.16 uIU/mL (0.27-4.20)
[2020-08-05 02:06] LABS: Anion Gap 13.9 (5-19); Blood Urea Nitrogen 17 mg/dL (8-23); Calcium 8.8 mg/dL (8.5-10.5); Carbon Dioxide 27 mmol/L (22-29); Chloride 99 mmol/L (98-107); Glucose 153 mg/dL (65-115); Osmolality Calculated 287 mOsm/kg (285-295); Potassium 3.9 mmol/L (3.5-5.1); Sodium 136 mmol/L (136-145)
--- NOTE | 2020-08-05 06:26 | PC.NURSE ---
Just spoke with Dr. Calvert regarding this patient's complaints of increased chest pain. Pt is pointing to the lower left part of his chest and has been diagnosed with pleuritic chest pain. Received orders see
[2020-08-05] MEDS: clopidogrel 75 mg Tablet PO (06:32)
[2020-08-05] MEDS: dilTIAZem ER (24HR) 240 mg Capsule PO (06:32)
[2020-08-05] MEDS: pantoprazole DR 40 mg Tablet PO ×2 (06:32→21:00)
[2020-08-05] MEDS: ketorolac 30 mg/mL INJ 50 MG IVP (07:38)
[2020-08-05 09:08] LABS: Partial Thromboplastin Time 79.1 SECONDS (23.9-36.7)
--- NOTE | 2020-08-05 09:12 | XACV_ITS ---
Exam Room: [facility] Ht: 173 cm Wt: 91 kg BSA: 2.11 m2 Gender: Male : 1945 Any Known Allergies: Morphine Exam Priority: Routine Procedure(s): Procedure Description: Diagnostic procedure Procedure Description: Left Heart Catheterization Procedure Description: Left ventriculography Procedure Description: Coronary Angiography Diagnostic Cath Status: Urgent Diagnostic Findings * LAD has a mid vessel stent that is patent. There is a medium sized diagonal that arises before the stent. It has mild 30 percent stenosis in proximal segment.. * CX gives rise to 3 OM branches. There are mild luminal irregularities. No significant stenosis is seen.. * RCA is patent. There is a mid PDA stent that is patent. Ostial * p * osterior Descending Right Coronary Artery: Moderate 60% stenosis, REX: 3 flow. * LM has 0% stenosis. * Coronary angiography shows right dominance. Conclusions 1. Patent recent LAD and PDA stents. 2. There is moderate coronary artery disease with one vessel disease. 3. Normal left ventricular systolic function. Ejection fraction of 50%. Recommendations * Patient's chest pain likely from pericarditis. * Order echocardiogram. * Consider initiating treatment for pericarditis. Interventional RX Recommendation: medical therapy and/or counseling Diagnostic RX Recommendation: medical therapy and/or counseling Anticoagulation: Heparin Ventriculography Ejection Fraction: 50.0 % Pressures Phase:Rest AO : 102 / 90 ( 96 ) @ 3:37:00 AM 106 / 67 ( 81 ) @ 3:46:00 AM 105 / 58 ( 78 ) @ 3:46:00 AM LV : 121 / -1 / @ 3:44:00 AM 112 / -5 / @ 3:45:00 AM 113 / -6 / @ 3:46:00 AM Valves Phase:DefaultPhase AV : 5.0 @ 10:00:42 AM AV Mean Gradient: 12.0 @ 10:00:42 AM Clinical Evaluation EBL: 5mL-10mL Procedural Details Procedure Consent Obtained. Pre-Procedure Time Out. Identified patient by full name and date of as verbalized by the patient/guarantor. Does the consent match the physician's order: Yes. Accurate & Complete Informed Consent: Yes. Inpatient/Outpatient History & Physical on Chart: Yes. If H&P is completed, is and addenduem needed: No; If yes, is the addendum complete: N/A. Visualize and Verify Site with Patient/Guarantor: N/A. Relevant Radiology Images available: N/A. Pre-op teaching completed and patient verbalized understanding. The risks, benefits, and alternatives of sedation and/or procedure were discussed by physician. The patient agrees to continue. Procedure started. [facility] Clinical Fraility Score: 3: Managing Well. Block Breaker Indications: Worsening Angina. Chest Pain Symptom Assessment: Atypical Angina. Cardiovascular Instability: No. Correct patient, site and procedure confirmed by cath team. PERRLA. Strong, equal hand biophysics professor bilaterally. Lungs clear x 5 lobes. IV Site on Arrival: 18 gauge in the right wrist. IV Site on Arrival: 18 gauge in the left anticubital. IV Fluids: 0.9% NaCl at KVO. 0 mL infused prior to label press operator. Pre Procedural Pulses: bilateral dorsalis pedis was Doppled. Pre Procedural Pulses: bilateral posterior tibial was Doppled. Pre Procedural Pulses: bilateral radial was 2+. Oxygen started at 2liters/min via nasal canula. bilateral groins was prepped with chloroprep then draped in the usual sterile fashion. right radial was prepped with chloroprep then draped in the usual sterile fashion. Baseline sample Acquired. HR: 104 BPM. Physician arrived. Equipment: 6F - Radial. Cardiac Cath Pack. ACIST Manifold Kit Model BT 2000. Heparinized Saline (2 units/mL), 1000 mL bag. Physician scrubbed in. Immediate Pre-Procedure Time Out. Correct Patient: Yes; Correct Procedure: Yes; Correct Site: Yes; Correct Patient Position: Yes; Correct Supplies: Yes; Dried Flammable Prep: Yes; Blood Products Available: N/A;. Lidocaine 1% infiltrated to the right radial. Arterial access obtained. A 5 libyan TIG catheter in over wire. Pt arrived with amiodorone running at 0.5 mg/min. Catheter redirected to the RCA. Multiple views taken of right coronary artery. Multiple views taken of left coronary artery. Catheter removed over the exchange wire. A 5 libyan Angled Pig catheter in over wire. EDP Sample taken: LV 121/-2,8; HR: 111 BPM; SpO2: 94%. LV gram performed in ALEXANDRE @ 10 mL/second for a total of 30 mL. EDP Sample taken: LV 112/-6,14; HR: 100 BPM; SpO2: 95%. Pullback taken: LV 113/-7,15; AO 106/67(81); Mean: 12mmHg, Peak to Peak: 5mmHg, SEP: 9sec/min; HR: 103 BPM; SpO2: 95%. Catheter removed over the exchange wire. Side port of sheath attached to Normal Saline flush at KVO to maintain patency. Physician scrubbed out. A TR Band was successful obtaining hemostatsis at the Right Radial artery insertion site. TR band placed. Hemostasis obtained. Post Procedure: Pulses reassessed and unchanged. PERRLA. Strong, equal hand biophysics professor bilaterally. No VTE prophylaxis required. Medication's Wasted: Lidocaine 1% = 18 mL. Medication's Wasted: Nitro = 49.8 mg. Medication's Wasted: Heparin = 4000 units. Medication's Wasted: Other = versed 1 mg. Medication's Wasted: Other = fentanyl 50 mcg. Total IV fluids: 300 mL. Contrast type used: Omnipaque 300 mgI/mL, 500 mL bottle. Complications: none. Post-op diagnosis: nonobstructive CAD. Estimated blood loss: 5mL-10mL. Procedure completed. Patient transferred by wheelchair to 1st floor. Vital chart was stopped. Access Site Site: Right Radial artery Sheath Size: 6 Fr Hemostasis Method: TR Band Hemostasis Success: Successful Procedure Medications Start: 9:29 AM Stop: 9:29 AM Medication: Versed Amount: 1 mg Route: I.V. Start: 9:29 AM Stop: 9:29 AM Medication: Fentanyl Amount: 50 mcg Route: I.V. Start: 9:32 AM Stop: 9:32 AM Medication: Nitrogylcerin Amount: 200 mcg Route: I.A. Start: 9:36 AM Stop: 9:36 AM Medication: Heparin Amount: 2000 units Route: I.V. I, the attending physician, have reviewed and verified all procedure medications. Yes, all medications given per verbal order History/Risk Factors Hypertension: Yes Dyslipidemia: Yes Peripheral Arterial Disease (PAD): No Myocardial Infarction (NC): No Obesity: No Renal Disease: No Tobacco Use: Never Prior Interventions PCI: Yes CABG: No Valve Surgery: No Date of PCI: 05/19/2020 Report Signatures Finalized by Adi De La Paz MD on 08/12/2020 10:40 AM
--- NOTE | 2020-08-05 09:22 | PC.NURSE ---
patient off unit at this time for cardiac catheterization unable to titrate heparin GTT
--- NOTE | 2020-08-05 09:24 | PC.CHAP ---
Pastoral Care Encounter/Spiritual Assessment Type of Contact [] Declined production machinist visit [] Patient/Family/Request visit [] Outpatient visit [] Follow-up visit [] Physician referral [] Code/Alert [] Routine visit [] Staff referral [] Actively dying [] Patient sleeping [] Family support [] [x] Out of room [] Palliative care [] [] Receiving care in room [] Pre-surgical visit [] Trauma [] Long length of stay [] ICU visit [] Other: Relational/Emotional Strength [] Patient feels connected with others/family/visitors/staff [] Distress [] Loneliness/isolation [] Abandonment Spirituality of Patient [] Person of Shakira [] Attends Mandaen of their Shakira [] Believes in Prayer [] Reads Bible or Mandaeism materials [] There are Spiritual issues to be addressed 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 Interventions [x] Prayer [] Active listening [] Non-anxious presence [] Spiritual/emotional support [] Crisis/trauma care [] Spiritual counseling [] Bereavement support [] Provided bereavement packet [] Provided Bible/devotional materials [] Provided toy/stuffed animal, coloring book to patient or family member [] Provided Communion [] Anointing/[place] [] Salvation [x] Completed spiritual assessment [] Other: Impact on Illness or Injury [] Angry [] Fearful [] Anxious [] Often cries [] Exhaustion [] Unable to work [] Unable to attend mormon [] Unable to walk/stand [] Unable to read [] Unable to drive [] Unable to eat/drink [] Unable to sleep [] Unable to be with family [] Patient intubated [] Other: Summary Time spent with patient
--- NOTE | 2020-08-05 10:15 | PC.NURSE ---
patient received back to room from seed laboratory assistant TR band in place no hematoma noted
--- NOTE | 2020-08-05 11:10 | W.PM.OPSUD ---
Surgery/Procedure H&P Update DATE OF PROCEDURE: August 05, 2020 DATE H&P PERFORMED: 08/05/20 H&P UPDATE INFORMATION: I have reviewed H&P completed within last 30 days, I have examined patient prior to procedure and No changes to prior documentation PREOP DIAGNOSIS: Worsening chest pain PRIMARY INDICATION FOR PROCEDURE: Worsening chest pain PLANNED PROCEDURE: Operation Date: 08/05/20 09:00 Proposed Procedures p Cardiac Catheterization(Not Applicable) - Adi De La Paz M.D PATIENT REASSESSED PRIOR TO SEDATION, WITH NO CHANGE NOTED: Yes PHYSICAL EXAM: alert, oriented x 3 and clear to auscultation bilaterally AIRWAY EVAL/ANESTHESIA PLAN: ASA II, Risks, benefits & alternatives of sedation and/or procedure discussed and Patient agrees to continue as planned
--- NOTE | 2020-08-05 11:12 | P.PN_ITS ---
Subjective Subjective: Interval history: Patient received ketorolac IV overnight for pain. He is feeling better however chest pain going on and off. He underwent coronary angiography today that revealed patent LAD and PDA stent. There was a moderate ostial PDA stenosis with some haziness however good flow downstream. No intervention was performed. His chest pain is likely from pericarditis. Vitals/I&O/Wt Last Vital Signs Temp 97.1 F L 08/05/20 10:49 Pulse 91 08/05/20 10:37 Resp 19 H 08/05/20 10:37 BP 103/70 08/05/20 10:37 Pulse Ox 93 08/05/20 10:37 08/04/20 08/05/20 08/05/20 22:59 06:59 14:59 Intake Total 200.355 / 200.355 Output Total 300 / 300 Balance 200.355 / 200.355 -300 / -300 Weight last 48 hrs Weight 200 lb Physical Exam Narrative: EXAM NARRATIVE: GENERAL: Patient is alert, awake and oriented x3. [] NECK: No jugular vein distension. [] HEENT: No cyanosis. No icterus. No pallor. [] HEART: Regular S1 and S2. No murmur, rub or gallop. [] LUNGS: Clear to auscultate bilaterally. [] ABDOMEN: Soft, nontender and nondistended. Positive bowel sounds. No guarding, rebound or tenderness. [] CENTRAL NERVOUS SYSTEM: Grossly nonfocal. [] EXTREMITIES: Lower extremities with no edema bilaterally. Pulses palpable in the lower extremities, both dorsalis pedis and posterior tibial. [] Data : 08/05/20 01:30 08/05/20 01:30 A&P Assessment and plan (1) Chest pain: Status: Resolved (2) Atrial flutter: Status: Acute (3) History of DVT (deep vein thrombosis): Status: Acute Patient has history of significant coronary artery disease with stents is to LAD and PDA in May 2020. He has presented with severe chest pain. Coronary angiography done today did not reveal severe coronary artery disease. Chest pain is likely from pericarditis. Initiate steroids and colchicine for pericarditis treatment. Will hold off on NSAIDs as patient is on Plavix and Eliquis for his atrial fibrillation and recent stent placement and bleeding risk will be higher. At this time we will attempt to cardiovert patient chemically with amiodarone. He is rate controlled at this time. Continue Plavix. Continue heparin drip for now. Eliquis to be started this evening. Echocardiogram ordered Attestations Medical Necessity Statement*: Care expected to cross 2 midnights. Coding Level of Care Code Acute Recycling Crew Supervisor for [facility] Diagnoses Chest pain R07.9 Atrial flutter I48.92 History of DVT (deep vein thrombosis) Z86.233
--- NOTE | 2020-08-05 12:00 | PC.NURSE ---
spoke with Dr De La Paz with concerns of heparin GTT instructions given to start heparin GTT over again from beginning 30 min post TR band removal
--- NOTE | 2020-08-05 14:30 | PC.NURSE ---
TR band removal per protocol no hematoma no bleeding noted dressing applied
[2020-08-05] MEDS: heparin drip 25,000 UNIT/500 ML PREMIX 25 UNIT IV (14:40)
[2020-08-05] MEDS: heparin 5,000 unit/mL INJ 1 mL IV (14:41)
--- NOTE | 2020-08-05 15:00 | PC.NURSE ---
Heparin GTT restarted at this time per telephone instructions received from Dr. De La Paz
--- NOTE | 2020-08-05 19:23 | PC.NURSE ---
call recived from Dr. palacio to give new orders and after eliquis is given stop heparin GTT
--- NOTE | 2020-08-05 19:56 | P.PN_ITS ---
Subjective Subjective: Interval history: Following coronary angiography he is doing well. Denies chest pain at the time. Does state was having chest comfort earlier. Does say that there is some positional relation with noted worsening of symptoms when supine. Vitals/I&O/Wt Last Vital Signs Temp 97.1 F L 08/05/20 10:49 Pulse 93 08/05/20 18:23 Resp 21 H 08/05/20 16:30 BP 130/66 08/05/20 16:30 Pulse Ox 91 08/05/20 16:30 08/05/20 08/05/20 08/05/20 06:59 14:59 22:59 Intake Total 200.355 / 200.355 771.25 / 771.25 240 / 1011.25 Output Total 600 / 600 Balance 200.355 / 200.355 171.25 / 171.25 240 / 411.25 Weight last 48 hrs Weight 90.718 kg Physical Exam Const: COMMON NORMALS: no acute distress and patient oriented x3 HENMT: COMMON NORMALS: oropharynx normal Neck/C-Spine: COMMON NORMALS: no JVD Resp: COMMON NORMALS: normal respiratory effort and clear to auscultation bilaterally AUSCULTATION: clear to auscultation bilaterally Cardio: COMMON NORMALS: no JVD OTHER: Difficult to hear heart sounds. GI: COMMON NORMALS: Normal to inspection, nondistended, normoactive bowel sounds present, Soft to palpation and non-tender PALPATION: Yes Soft to palpation Extremity: COMMON NORMALS: no joint enlargement and no pedal edema Neuro: COMMON NORMALS: patient oriented x3 and moves all extremities Skin: COMMON NORMALS: no rashes or lesions noted GENERAL SKIN EXAM: no rashes or lesions noted Data : 08/05/20 01:30 08/05/20 01:30 A&P Assessment and plan (1) Pericarditis: Troponin normal. Coronary angiogram without finding of new blockages. Symptomatology appears to represent pericarditis. Small pericardial effusion noted on CT of the chest. Troponin is not elevated suggesting likely myocardium is spared. Discussed treatments with cardiology, and as recommended with patient as well. Discussed medication options. With requirement for Plavix, anticoagulation, high-dose aspirin would increase bleeding risk. Due to this recommendation has been for steroid treatment with colchicine. Discussed risks and possible complications of therapy. He verbalized understanding, agreement to proceed. Status: Acute (2) Pleuritic chest pain: Noted bibasilar atelectasis likely related to chest pain. Request incentive spirometry. Continue analgesia. Pericarditis treatment as above. Status: Acute (3) Atrial flutter: Continue amiodarone, resume anticoagulation with Eliquis. Discontinue heparin drip. Status: Acute Attestations Medical Necessity Statement*: Continue admission for assessment management of chest pain, pericarditis, atrial flutter. Coding Level of Care Code Acute Closing Supervisor for [facility] Diagnoses Pericarditis I31.9 Pleuritic chest pain R07.81 Atrial flutter I48.92
[2020-08-05] MEDS: predniSONE 20 mg Tablet 40 MG PO (20:59)
[2020-08-05] MEDS: colchicine 0.6 mg Tablet PO (20:59)
[2020-08-05] MEDS: apixaban 5 mg Tablet PO (20:59)
[2020-08-05] MEDS: fentaNYL 50 mcg/mL INJ 2mL IVP (21:02)
[2020-08-05 21:43] LABS: Partial Thromboplastin Time 96.4 SECONDS (23.9-36.7)
[2020-08-05] MEDS: acetaminophen 325 mg Tablet 650 MG PO (23:26)
[2020-08-06] VITALS (13 sets, daily range): BP systolic 106–124; BP diastolic 61–79; PULSE 78–115; RESP 8–24; TEMP 36.4–36.8; O2SAT 91–97
[2020-08-06] MEDS: metoprolol tartrate 50 mg Tablet PO ×2 (01:45→12:51)
--- NOTE | 2020-08-06 03:05 | PC.NURSE ---
NURSING NOTE: 21:00 THIS SHIFT. HEPARIN GTT TURNED OFF AFTER PT RECEIVED ORDERED MEDICATIONS INCLUDING ELIQUIS. ALL VS AND ASSESSMETNS CHARTED. NO DISTRESS NOTED AT THIS TIME.
[2020-08-06 04:47] LABS: Basophils % 0.3 %; Eosinophils # 0.1 10^3/uL (0.0-0.8); Eosinophils % 0.7 %; Hematocrit 40.5 % (42.0-52.0); Hemoglobin 13.1 g/dL (11.7-16.6); Lymphocytes # 1.6 10^3/uL (0.8-4.8); Lymphocytes % 14.8 %; Mean Corpuscular HGB Conc 32.3 g/dL (30.0-36.0); Mean Corpuscular Volume 92.9 fL (80-94); Mean Platelet Volume 10.1 fL (7.4-10.4); Monocytes # 0.9 10^3/uL (0.2-0.9); Monocytes % 8.4 %; Neutrophils # 8.36 10^3/uL (1.8-7.7); Neutrophils % 75.6 %; Nucleated Red Blood Cells % 0 %; Platelet Count 177 10^3/cmm (130-400); Red Blood Count 4.36 10^6/uL (4.1-5.3); Red Cell Distribution Width 12.1 % (12.1-15.1); White Blood Count 11.1 10^3/uL (4.0-10.0)
[2020-08-06 05:18] LABS: Anion Gap 13.1 (5-19); Blood Urea Nitrogen 21 mg/dL (8-23); Calcium 9.1 mg/dL (8.5-10.5); Carbon Dioxide 27 mmol/L (22-29); Chloride 103 mmol/L (98-107); Glucose 137 mg/dL (65-115); Osmolality Calculated 293 mOsm/kg (285-295); Potassium 4.1 mmol/L (3.5-5.1); Sodium 139 mmol/L (136-145)
--- NOTE | 2020-08-06 06:00 | USCV_ITS ---
Hardeep Rodriguez Age: 75 Gender: M : 1945 Exam Date: 08/06/2020 05:42 Ordering Phys: Adi De La Paz M.D ([email or web address]) Technologist: Chanel Pete Exam Location: [facility] [place] Indication: POSSIBLE PERICARDITIS BP: 109 / 61 HR: 76 Rhythm: Sinus Technical Quality: Adequate MEASUREMENTS (Male / Female) Normal Values 2D ECHO LV Diastolic Diameter PLAX 3.1 cm 4.2 - 5.9 / 3.9 - 5.3 cm LV Systolic Diameter PLAX 2.6 cm LV Chamber Size 3.8 cm IVS Diastolic Thickness 1.6 cm 0.6 - 1.0 / 0.6 - 0.9 cm IVS Systolic Thickness 1.6 cm LVPW Diastolic Thickness 2.4 cm 0.6 - 1.0 / 0.6 - 0.9 cm LVPW Systolic Thickness 1.9 cm RV Chamber Size 3.6 cm LVOT Diameter 2.1 cm LV Ejection Fraction 2D Teich 34.5 % LV Ejection Fraction MOD 2C 58.0 % LV Ejection Fraction 2C AL 57.0 % LA Diameter 4.1 cm LA Width 3.9 cm LA Height 5.8 cm RA Width 3.7 cm RA Height 5.0 cm Aorta at Sinotubular Diameter 2.7 cm M-MODE LV Diastolic Diameter MM 7.6 cm 4.2 - 5.9 / 3.9 - 5.3 cm LV Systolic Diameter MM 5.7 cm LV Ejection Fraction MM Teich 47.7 % IVS Diastolic Thickness MM 0.9 cm 0.6 - 1.0 / 0.6 - 0.9 cm IVS Systolic Thickness MM 1.7 cm LVPW Diastolic Thickness MM 1.2 cm 0.6 - 1.0 / 0.6 - 0.9 cm LVPW Systolic Thickness MM 1.6 cm Aortic Annulus Diameter 3.1 cm LA Ao Ratio MM 1.5 MV E Point Septal Separation 1.2 cm DOPPLER AV Peak Velocity 98.0 cm/s LVOT Peak Velocity 81.0 cm/s AV Area Cont Eq vti 2.5 cm squared AV Area Cont Eq pk 2.8 cm squared MV Area PHT 3.5 cm squared Mitral E to A Ratio 2.5 MV E' Velocity 47.0 cm/s Mitral E to MV E' Ratio 6.6 Mitral E to LV E' Lateral Ratio 6.9 Mitral E to LV E' Septal Ratio 6.3 TR Peak Velocity 164.0 cm/s TR Peak Gradient 10.8 mmHg TV Peak E Velocity 44.0 cm/s Right Atrial Pressure 3.0 mmHg Pulmonary Artery Systolic Pressu 13.8 mmHg PV Peak Velocity 53.0 cm/s RV Acceleration Time 0.1 s RV Ejection Time 0.3 s RV AcT/ET 0.3 FINDINGS Left Ventricle Normal left ventricular size.LV systolic function is borderline normal. LVEF is 50 to 55%. No regional wall motion abnormalities are seen. Diastolic function is indeterminate because of atrial fibrillation. Right Ventricle The right ventricle is normal in size and function. Right Atrium The right atrium is normal in size. Prominent eustachian valve is seen Left Atrium The left atrium is normal in size. Mitral Valve Structurally normal mitral valve without significant stenosis or prolapse. There is no mitral regurgitation. Aortic Valve Structurally normal aortic valve without significant sclerosis or stenosis. There is no aortic regurgitation. Tricuspid Valve Structurally normal tricuspid valve without significant stenosis or regurgitation. Insufficient TR jet to calculate RVSP. Pulmonic Valve Structurally normal pulmonic valve without significant stenosis. There is no pulmonic regurgitation. Pericardium Trivial pericardial effusion is seen. Aorta Normal ascending aorta dimension. CONCLUSIONS LV systolic function is borderline normal with EF of 50 to 55%. Diastolic function is indeterminate because of atrial fibrillation. Prominent eustachian valve is seen in the right atrium. No significant valvular heart disease is seen. Trivial pericardial effusion is present. Compared to prior echocardiogram from 05/19/2020, LV systolic function is mildly reduced. Adi De La Paz MD (Electronically Signed) Final Date: 06 August 2020 11:57 S
[2020-08-06] MEDS: dilTIAZem ER (24HR) 240 mg Capsule PO (06:21)
[2020-08-06] MEDS: clopidogrel 75 mg Tablet PO (06:21)
[2020-08-06] MEDS: pantoprazole DR 40 mg Tablet PO ×2 (08:58→18:24)
[2020-08-06] MEDS: colchicine 0.6 mg Tablet PO ×2 (08:58→18:24)
[2020-08-06] MEDS: apixaban 5 mg Tablet PO ×2 (08:58→18:24)
[2020-08-06] MEDS: predniSONE 20 mg Tablet 40 MG PO (08:58)
[2020-08-06] MEDS: acetaminophen 325 mg Tablet 650 MG PO ×2 (09:06→21:12)
--- NOTE | 2020-08-06 10:48 | P.PN_ITS ---
Subjective Subjective: Interval history: Patient was started on treatment of pericarditis last night with prednisone and colchicine. He is feeling some relief. Still having on and off chest pain. Coronary angiogram did not reveal significant CAD. Prior stents were patent. Vitals/I&O/Wt Last Vital Signs Temp 98.2 F 08/06/20 10:38 Pulse 93 08/06/20 10:38 Resp 18 08/06/20 10:38 BP 124/77 08/06/20 10:38 Pulse Ox 95 08/06/20 10:38 08/05/20 08/06/20 08/06/20 22:59 06:59 14:59 Intake Total 480 / 1251.25 417.645 / 1668.895 240 / 240 Output Total 200 / 800 800 / 1600 600 / 600 Balance 280 / 451.25 -382.355 / 68.895 -360 / -360 Weight last 48 hrs Weight 200 lb Physical Exam Narrative: EXAM NARRATIVE: GENERAL: Patient is alert, awake and oriented x3. [] NECK: No jugular vein distension. [] HEENT: No cyanosis. No icterus. No pallor. [] HEART: Regular S1 and S2. No murmur, rub or gallop. [] LUNGS: Clear to auscultate bilaterally. [] ABDOMEN: Soft, nontender and nondistended. Positive bowel sounds. No guarding, rebound or tenderness. [] CENTRAL NERVOUS SYSTEM: Grossly nonfocal. [] EXTREMITIES: Lower extremities with no edema bilaterally. Pulses palpable in the lower extremities, both dorsalis pedis and posterior tibial. [] Data : 08/06/20 04:26 08/06/20 04:26 A&P Assessment and plan (1) Chest pain: Status: Resolved (2) Atrial flutter: Status: Acute (3) History of DVT (deep vein thrombosis): Status: Acute Patient has history of significant coronary artery disease with stents is to LAD and PDA in May 2020. He has presented with severe chest pain. Coronary angiography done today did not reveal severe coronary artery disease. Chest pain is likely from pericarditis. Patient started on Prednisone and Colchicine. Will hold off on NSAIDs as patient is on Plavix and Eliquis for his atrial fibrillation and recent stent placement and bleeding risk will be higher. At this time we will attempt to cardiovert patient chemically with amiodarone. Will switch to PO amio today. He is rate controlled at this time. Continue Plavix. Continue Eliquis. Echocardiogram shows small pericardial effusion that is consistent with diagnosis of pericarditis. Thank you for involving us with care of this patient. We will continue to follow. Please call with questions Attestations Medical Necessity Statement*: Care expected to cross 2 midnights. Coding Level of Care Code Acute Medical Customer Service Representative for [facility] Diagnoses Chest pain R07.9 Atrial flutter I48.92 History of DVT (deep vein thrombosis) Z86.719
--- NOTE | 2020-08-06 10:52 | PC.NURSE ---
spoke with Dr palacio to confirm cardioversion for today; instructions received for no cardioversion this day will continue treatment for percarditis.
[2020-08-06] MEDS: amiodarone 200 mg Tablet 400 MG PO ×2 (11:19→18:24)
--- NOTE | 2020-08-06 20:02 | PM.PN ---
Subjective Subjective: Interval history: Today he is doing a little bit better. He states that he still having chest discomfort which is about a 3/10. Improving from previously. He is not taking very deep breaths. We discussed with him regarding use of incentive spirometry, due to noted atelectasis in his lungs to prevent development of pneumonia. He verbalized understanding will try to work with it. Discussed with him he may request for pain medication in case of difficulties due to pain. Vitals/I&O/Wt Last Vital Signs Temp 98.0 F 08/06/20 19:39 Pulse 115 H 08/06/20 19:39 Resp 24 H 08/06/20 19:39 BP 106/68 08/06/20 19:39 Pulse Ox 97 08/06/20 15:36 08/06/20 08/06/20 08/06/20 06:59 14:59 22:59 Intake Total 417.645 / 1668.895 665.11 / 665.11 240 / 905.11 Output Total 800 / 1600 600 / 600 800 / 1400 Balance -382.355 / 68.895 65.11 / 65.11 -560 / -494.89 Physical Exam Const: COMMON NORMALS: no acute distress and patient oriented x3 HENMT: COMMON NORMALS: oropharynx normal Neck/C-Spine: COMMON NORMALS: no JVD Resp: COMMON NORMALS: normal respiratory effort and clear to auscultation bilaterally AUSCULTATION: clear to auscultation bilaterally Cardio: COMMON NORMALS: no JVD OTHER: Difficult to hear heart sounds. GI: COMMON NORMALS: Normal to inspection, nondistended, normoactive bowel sounds present, Soft to palpation and non-tender PALPATION: Yes Soft to palpation Extremity: COMMON NORMALS: no joint enlargement and no pedal edema Neuro: COMMON NORMALS: patient oriented x3 and moves all extremities Skin: COMMON NORMALS: no rashes or lesions noted GENERAL SKIN EXAM: no rashes or lesions noted Data : 08/06/20 04:26 08/06/20 04:26 A&P Assessment and plan (1) Atrial flutter: Symptomatic improvement today from pericarditis. At this time continue amiodarone with goal of possible chemical cardioversion. Cardizem, metoprolol. Continue Eliquis. Status: Acute (2) Pericarditis: Symptomatically appears to be gradually improving. Pain today is little bit better. Still not taking very deep breaths. Discussed with him we may provide pain medication if needed, and encouraged him to use incentive spirometry. Continue prednisone, colchicine. Status: Acute (3) Pleuritic chest pain: Noted bibasilar atelectasis likely related to chest pain. Request incentive spirometry. Continue analgesia. Pericarditis treatment as above. Status: Acute Attestations Medical Necessity Statement*: Continue admission for assessment management of atrial flutter with RVR, acute pericarditis. Coding Level of Care Code Acute Academic Services Professional for [facility] Diagnoses Atrial flutter I48.92 Pericarditis I31.9 Pleuritic chest pain R07.81
[2020-08-06] MEDS: atorvastatin 40 mg Tablet PO (21:12)
[2020-08-07] MEDS: metoprolol tartrate 50 mg Tablet PO ×2 (01:53→12:57)
--- NOTE | 2020-08-07 03:12 | PC.NURSE ---
NURSE NOTE: SHIFT SUMMARY: PT ALERT AND ORIENTED X4; MOVES ALL EXTREMITIES AND FOLLOWS COMMANDS. C/O PAIN X1 TIME /TYLENOL GIVEN ORDERED. RESTED WITH EYES CLOSED MOST OF SHIFT. DENIES PAIN OR NEEDS AT THIS TIME.
[2020-08-07 03:53] VITALS: BP 105/52; PULSE 80; RESP 15; TEMP 36.6
[2020-08-07 04:44] LABS: Basophils % 0.1 %; Eosinophils % 0.1 %; Hematocrit 40.6 % (42.0-52.0); Hemoglobin 13.7 g/dL (11.7-16.6); Lymphocytes % 11.1 %; Mean Corpuscular HGB Conc 33.7 g/dL (30.0-36.0); Mean Corpuscular Hemoglobin 30.3 pg (28.0-34.0); Mean Corpuscular Volume 89.8 fL (80-94); Mean Platelet Volume 9.9 fL (7.4-10.4); Monocytes # 1.1 10^3/uL (0.2-0.9); Monocytes % 6.3 %; Neutrophils # 14.97 10^3/uL (1.8-7.7); Nucleated Red Blood Cells % 0 %; Platelet Count 214 10^3/cmm (130-400); Red Blood Count 4.52 10^6/uL (4.1-5.3); Red Cell Distribution Width 11.9 % (12.1-15.1); White Blood Count 18.2 10^3/uL (4.0-10.0)
[2020-08-07 05:08] LABS: Anion Gap 12.2 (5-19); Blood Urea Nitrogen 20 mg/dL (8-23); Calcium 9.3 mg/dL (8.5-10.5); Carbon Dioxide 27 mmol/L (22-29); Chloride 103 mmol/L (98-107); Glucose 147 mg/dL (65-115); Osmolality Calculated 291 mOsm/kg (285-295); Potassium 4.2 mmol/L (3.5-5.1); Sodium 138 mmol/L (136-145)
[2020-08-07 05:15] VITALS: PULSE 76
[2020-08-07] MEDS: dilTIAZem ER (24HR) 240 mg Capsule PO (06:03)
[2020-08-07] MEDS: clopidogrel 75 mg Tablet PO (06:03)
[2020-08-07 07:14] VITALS: BP 103/61; PULSE 75; RESP 17; TEMP 36.4
--- NOTE | 2020-08-07 08:14 | P.PN_ITS ---
Subjective Subjective: Interval history: Patient is doing well. He is chest pain free now. ECHO showed normal LV systolic function with trivial pericardial effusion. Has been started on prednisone and Colchicine. Vitals/I&O/Wt Last Vital Signs Temp 97.5 F L 08/07/20 07:14 Pulse 75 08/07/20 07:14 Resp 17 08/07/20 07:14 BP 103/61 08/07/20 07:14 Pulse Ox 94 08/06/20 22:39 08/06/20 08/07/20 08/07/20 22:59 06:59 14:59 Intake Total 360 / 1025.11 500 / 1525.11 Output Total 800 / 1400 750 / 2150 300 / 300 Balance -440 / -374.89 -250 / -624.89 -300 / -300 Physical Exam Narrative: EXAM NARRATIVE: GENERAL: Patient is alert, awake and oriented x3. [] NECK: No jugular vein distension. [] HEENT: No cyanosis. No icterus. No pallor. [] HEART: Regular S1 and S2. No murmur, rub or gallop. [] LUNGS: Clear to auscultate bilaterally. [] ABDOMEN: Soft, nontender and nondistended. Positive bowel sounds. No guarding, rebound or tenderness. [] CENTRAL NERVOUS SYSTEM: Grossly nonfocal. [] EXTREMITIES: Lower extremities with no edema bilaterally. Pulses palpable in the lower extremities, both dorsalis pedis and posterior tibial. [] Data : 08/07/20 04:33 08/07/20 04:33 A&P Assessment and plan (1) Chest pain: Status: Resolved (2) Atrial flutter: Status: Acute (3) History of DVT (deep vein thrombosis): Patient has history of significant coronary artery disease with stents is to LAD and PDA in May 2020. He has presented with severe chest pain. Miriam nary angiography done did not reveal severe coronary artery disease. Chest pain is from pericarditis. Patient started on Prednisone and Colchicine. Will need to continue colchicine for 3 months and long taper of prednisone. Will hold off on NSAIDs as patient is on Plavix and Eliquis for his atrial fibrillation and recent stent placement and bleeding risk will be higher. PO Amiodarone 400mg BID. Continue Plavix. Continue Eliquis. Echocardiogram shows small pericardial effusion that is consistent with diagnosis of pericarditis. Thank you for involving us with care of this patient. Patient is ready to be discharged from cardiology standpoint. Please call wit questions Attestations Medical Necessity Statement*: Care expected to cross 2 midnights. Coding Level of Care Code Acute Bowl Topper for [facility] Diagnoses Chest pain R07.9 Atrial flutter I48.92 History of DVT (deep vein thrombosis) Z86.718
[2020-08-07] MEDS: predniSONE 20 mg Tablet 40 MG PO (09:10)
[2020-08-07] MEDS: apixaban 5 mg Tablet PO (09:10)
[2020-08-07] MEDS: pantoprazole DR 40 mg Tablet PO (09:10)
[2020-08-07] MEDS: amiodarone 200 mg Tablet 400 MG PO (09:10)
[2020-08-07] MEDS: colchicine 0.6 mg Tablet PO (09:11)
--- NOTE | 2020-08-07 10:17 | DCPLANNER ---
IMM completed on 08/07/20 @ 0972. Copy of rights given to pt.
[2020-08-07 11:07] VITALS: BP 115/71; PULSE 75; RESP 16; TEMP 36.3
[2020-08-07 13:16] VITALS: PULSE 97; RESP 16; O2SAT 96
[2020-08-07 13:19] VITALS: BP 115/71; PULSE 75; RESP 16; TEMP 36.3
[2020-08-07] MEDS: acetaminophen 325 mg Tablet 650 MG PO (13:31)
--- NOTE | 2020-08-07 13:50 | PC.NURSE ---
Addendum entered by Juliana Cardoso RN 08/07/20 14:36: IV's dicontinued caths intact min bleeding noted patient asssisted to wheel chair by staff to private vehicle, patient alert oriented and instable condition upon departure Original Note: patient discharged home at this time; discharge instructions provided and explained to patient and family member both verbalized understanding of all instruction provided.
--- NOTE | 2020-08-07 14:36 | PM.DCS ---
Discharge Providers Date of Admission: 08/04/20 19:23 Date of Discharge: August 07, 2020 Attending Provider at Admission: Dylan Calvert MD Attending Provider at Discharge: Washington Alexis Primary Care Provider: Pete Dunne MD Diagnoses at Discharge Discharge Diagnosis (1) Chest pain: Status: Resolved (2) Atrial flutter: Status: Acute (3) History of DVT (deep vein thrombosis): Status: Acute Reason for Visit Reason for Visit: CP Hospital Course Hospital Course Very pleasant 75-year-old gentleman with history of CAD, status post coronary artery catheterization on 05/19/2020 due to persistent chest pain, underwent PCI of LAD and PDA. Due to persistent chest pain subsequently underwent reassessment angiography, although without noted significant new disease or stent thrombosis. As he remained in a flutter with persistent symptoms he was scheduled for cardioversion after lack of improvement with increase of metoprolol to 50 mg twice a day, Cardizem 240 mg daily. He is continued on Eliquis for atrial flutter, and has history of factor V Leiden mutation. He came to the hospital on the day his cardioversion was supposed to happen due to severe chest pain across his chest, with pleuritic component limiting the depth of his breathing, with pain getting worse with movement. She was started on amiodarone drip for atrial flutter. Given recent stents and persistent chest pain, he underwent additional assessment with coronary angiography to exclude new blockages or thrombosis. This revealed patent LAD and PDA stents. There was a moderate ostial PDA stenosis with some haziness however good flow downstream. No intervention was required. His chest pain symptoms are found more likely related to pericarditis, with reported worsening of pain while supine. His troponin series were without rise. Echocardiogram performed during this admission showed normal ejection fraction, diastolic function could not be determined due to atrial fibrillation, noted permanent use taken valve seen in the right atrium. No significant valvular disease. Trivial pericardial effusion. Compared to prior echocardiogram LV systolic function mildly reduced. Other diagnostic imaging studies from this admission included chest x-ray and CTA. CTA chest showedno visible evidence of PE. With noted very small volumes with subsegmental alveolar airspace disease posterior basal segmental bilateral lower lobes, right more involved than left. Thought to be most likely due to atelectasis and/or focal edema. Pneumonia could not be entirely excluded, although he otherwise did not show symptoms of pneumonia. COVID-19 PCR was negative on 08/02. Also noted minimal atelectasis at the base of the right middle lobe and lingula. COPD/chronic bronchitis. Minimal right pleural effusion. Small pericardial effusion. Mild cardiomegaly. Atelectasis was very likely given his pleuritic chest discomfort, and inability to take very deep breaths. Due to need for continued therapy with Plavix, Eliquis, NSAIDs and aspirin were not considered a safe option for further treatment of his pericarditis. Recommendation for treatment with prednisone, colchicine was discussed with him, including risks and benefits, and he was agreeable to proceed. After initiation of therapy he has noted improvement, with initially lower intensity of his chest discomfort, and today so far resolution of it. We discussed risk of pneumonia, and strategies to prevent it. Encouraged him to use incentive spirometry, and now that his pain has resolved he states certainly will have much easier time doing so. He will complete a prednisone taper as well as 3 months of colchicine. He understands to seek medical attention in case of any recurrence of severe symptoms, high fever, worsening shortness of breath or other signs of pneumonia, or other concerning symptoms. Requested addition of CRP to his labs from today for baseline as this may help with tapering of therapy. Since his symptoms are much better, DC cardioversion for now has been deferred. His heart rates have been well controlled. At this time he continues on amiodarone with efforts for chemical cardioversion. Currently 400 mg twice daily, this should be decreased to 400 daily after 1 week. Physical Exam Const: COMMON NORMALS: no acute distress, patient oriented x3 and alert GENERAL APPEARANCE: cooperative and comfortable ORIENTATION/CONSCIOUSNESS: Yes awake OTHER: He is feeling much better, in much better spirits. Says he now feels comfortable returning home. HENMT: COMMON NORMALS: oropharynx normal Neck/C-Spine: COMMON NORMALS: no JVD Resp: COMMON NORMALS: normal respiratory effort and clear to auscultation bilaterally AUSCULTATION: clear to auscultation bilaterally Cardio: COMMON NORMALS: no JVD OTHER: Difficult to hear heart sounds. GI: COMMON NORMALS: Normal to inspection, nondistended, normoactive bowel sounds present, Soft to palpation and non-tender PALPATION: Yes Soft to palpation Extremity: COMMON NORMALS: no joint enlargement and no pedal edema Neuro: COMMON NORMALS: patient oriented x3 and moves all extremities SENSORIUM/ORIENTATION: Yes alert Skin: COMMON NORMALS: no rashes or lesions noted GENERAL SKIN EXAM: no rashes or lesions noted Discharge Data Data Completed and Pending: Completed Studies During Hospitalization Category Date Time Status CT angio chest PE protcl [id number] Stat Cat Scan 08/04/20 16:55 Completed XR chest 1V rama ble [id number] Stat Exams 08/04/20 15:03 Completed CV echo complete* [id number] Routine Ultrasound 08/06/20 06:00 Completed Pending at discharge Category Date Time Status 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 request for service Routin e Exams 08/05/20 09:12 Taken Labs from last 24 hours 08/07/20 08/07/20 04:33 04:33 WBC 18.2 H RBC 4.52 Hgb 13.7 Hct 40.6 L MCV 89.8 MCH 30.3 MCHC 33.7 RDW 11.9 L Plt Count 214 MPV 9.9 Neut % (Auto) 82.0 Lymph % (Auto) 11.1 [place] % (Auto) 6.3 Eos % (Auto) 0.1 Baso % (Auto) 0.1 Neut # (Auto) 14.97 H Lymph # (Auto) 2.0 [place] # (Auto) 1.1 H Eos # (Auto) 0.0 Baso # (Auto) 0.0 Nucleated RBC % (a uto) 0 Nucleated RBCs # 0.0 Sodium 138 Potassium 4.2 Chloride 103 Carbon Dioxide 27 Anion Gap 12.2 BUN 20 Creatinine 0.7 GFR Calculation Not Reportable Glucose 147 H Calculated Osmolal ity 291 Calcium 9.3 Vitals: Last Vital Signs Temp 97.4 F L 08/07/20 13:19 Pulse 75 08/07/20 13:19 Resp 16 08/07/20 13:19 BP 115/71 08/07/20 13:19 Pulse Ox 96 08/07/20 13:16 Discharge Plan Discharge Patient Disposition: Home Condition: Stable Prescriptions: New Pacerone 200 mg Tablet See Rx Instructions .ROUTE .COMPLEX Qty: 120 RF: 0 prednisone 10 mg tablet See Rx Instructions .ROUTE .COMPLEX Qty: 100 RF: 0 Colcrys 0.6 mg Tablet 0.6 mg PO BID 90 Days Qty: 180 RF: 0 acetaminophen 325 mg Tablet 650 mg PO Q6H PRN (Reason: Mild Pain) Qty: 90 RF: 0 Continued sildenafil 100 mg tablet 100 mg PO DAILY PRN (Reason: sexual activity) Qty: 20 RF: 12 nitroglycerin [Nitrostat] 0.4 mg tablet, sublingual 0.4 mg sublingual Q5M PRN (Reason: chest pain) Qty: 25 RF: 6 Eliquis 5 mg tablet 5 mg PO BID@07,19 RF: 0 atorvastatin 40 mg Tablet 40 mg PO BEDTIME Qty: 30 RF: 4 Vitamin D3 50 mcg (2,000 unit) Capsule 50 mcg PO BID RF: 0 diltiazem HCl 240 mg capsule,extended release 24 hr 240 mg PO DAILY@07 RF: 0 clopidogrel 75 mg tablet 75 mg PO DAILY@07 RF: 0 metoprolol tartrate 50 mg tablet 50 mg PO Q12H RF: 0 Changed pantoprazole 40 mg tablet,delayed release (DR/EC) 40 mg PO BID Qty: 60 RF: 0 Discontinued ibuprofen 200 mg Tablet 400 mg PO PRN RF: 0 Discharge Orders: Discharge Order (Routine); Ordered 08/07/20 Ordered By: Washington Alexis Referrals: Dylan Wakefield MD [Physician] - 09/21/20 3:30 pm (You have a cardiology followup with Dr. Wakefield at [facility] on September 21 at 3:30pm) Marycarmen Maradiaga FNP [Nurse Practitioner] - 08/17/20 1:00 pm (You have a post procedure followup with BATOOL Morataya at [facility] on August 17 at 1:00pm ) Pete Dunne MD [Primary Care Provider] - 08/12/20 2:15 pm (You have a hospital followup at [facility] with Dr. Dunne on August 12 at 2:15pm) Discharge Diet: Cardiac Discharge Activity: Increase activity as tolerated Patient Instructions: Prednisone (By mouth), Amiodarone (By mouth), Colchicine (By mouth), Clopidogrel (By mouth), Apixaban (By mouth), Left Heart Catheterization (DC), How to Use an Incentive Spirometer (DC), Acute Pericarditis (GEN), Post Angiogram Home Care Instructions Activity Restrictions/Additional Instructions: Continue medications for pericarditis with 3 months of colchicine, at which point this may be stopped unless further continued by her primary care doctor or feed adviser. Complete also slow prednisone taper as recommended: Take 4 tabs (40mg) by mouth daily for 10 days, then 3 tabs for 10 days, then 2 tabs for 10 days, then 1 tab for 7 days, 0.5 tab for 6 days and stop. Please continue incentive spirometer at home to promote deep breaths, prevent pneumonia. If you start having symptoms of pneumonia including fever, cough, productive of sputum, feeling unwell, or other symptoms, please seek medical attention. If you experience any fevers, any recurrence of chest pain, any severe shortness of breath, or other concerning symptoms, please seek medical attention without delay. Please never take sildenafil and nitroglycerin together. If you took 1, do not take the other due to high risk of adverse effects. Discharge Attestations Time Spent in Discharge Care*: greater than 30 min Quality Metrics Clinical Quality Measures During this hospital stay, did patient experience: None Coding Level of Care Code Acute Supervisor Shipping for [employer] Tomas Diagnoses Chest pain R07.9 Atrial flutter I48.92 History of DVT (deep vein thrombosis) Z86.718
[2020-08-07 16:38] LABS: C Reactive Protein 29.6 mg/L (0.0-4.9)
== END 2020-08-07 13:50 | disposition home or self-care (01) | DRG 286 ==
LOC: ER 19:29 → CSU 23:14
PROVIDERS: Internal Medicine; Admitting Provider Internal Medicine; Emergency Provider Family Medicine; PCP Family Medicine; Visit Provider Internal Medicine
PROC: 4A023N7 Measurement of Cardiac Sampling and Pressure, Left Heart, Percutaneous Approach (ICD-10-PCS; principal; 2020-08-05 09:00)
DX: I48.92 Unspecified atrial flutter (principal); J18.9 Pneumonia, unspecified organism; I31.9 Disease of pericardium, unspecified; D68.51 Activated protein C resistance; I25.10 Atherosclerotic heart disease of native coronary artery without angina pectoris; Z95.5 Presence of coronary angioplasty implant and graft; I48.91 Unspecified atrial fibrillation; N52.9 Male erectile dysfunction, unspecified; K21.9 Gastro-esophageal reflux disease without esophagitis; Z86.718 Personal history of other venous thrombosis and embolism; Z86.711 Personal history of pulmonary embolism; G47.33 Obstructive sleep apnea (adult) (pediatric); R09.1 Pleurisy; J44.9 Chronic obstructive pulmonary disease, unspecified; I51.7 Cardiomegaly; Z79.01 Long term (current) use of anticoagulants; Z79.02 Long term (current) use of antithrombotics/antiplatelets
CPT/HCPCS: 12345; 36415; 71045; 71275; 80048; 80053; 81003; 83735; 83880; 84443; 84484; 85025; 85378; 85610; 85730; 86140; 87635; 93005; 93306; 93452; 94660; 99283; C1769; C1887; C1894; J0282; J1170; J1644; J1885; J2250; J3010; J3490; J7030; J7060; J7512; Q9967

== ENCOUNTER → 2020-09-18 11:11 | Day surgery (SDC) | payer MEDICARE, BC, SELFPAY ==
[2020-09-18 11:31] VITALS: BMI 30.1
--- NOTE | 2020-09-18 11:32 | ECG_ITS ---
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 Measurements Intervals [place] Rate: 66 P: VA: QRS: 25 QRSD: 110 T: 84 QT: 428 QTc: 449 Interpretive Statements ATRIAL FIBRILLATION NONSPECIFIC T-WAVE ABNORMALITY Compared to ECG 08/05/2020 00:44:30 T-wave abnormality now present Atrial flutter no longer present Ventricular premature complex(es) no longer present Myocardial infarct finding no longer present Electronically Signed On 09-18-2020 18:27:52 LIGHT CLEANER by Adi De La Paz M.D. [id number]
[2020-09-18 11:50] VITALS: BP 115/70; PULSE 66; RESP 18; TEMP 36.7; O2SAT 95
--- NOTE | 2020-09-18 12:51 | ANES.PREANE2 ---
Pre-Anesthetic Assessment Pre-Anesthetic Assessment: Height/Weight: Height 1.73 m Weight 89.811 kg Temp Pulse Resp BP Pulse Ox 98.0 F 66 18 115/70 95 09/18/20 11:50 09/18/20 11:50 09/18/20 11:50 09/18/20 11:50 09/18/20 11:50 Preop Diagnosis: Worsening chest pain Proposed Procedure: Operation Date: 09/18/20 13:30 Proposed Procedures p Cardioversion 44814 I48.92(Not Applicable) - Dylan Wakefield MD Familial anesthetic complications: NOne Was Beta Juvenal taken within 24 hours: N/A Last intake: NPO > 8 hrs Social: Social History: No alcohol and No tobacco Airway: Cervical ROM: WNL MP: 4 Dentition: Full Pulmonary: Comments: 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, unable to tell me name of disorder CV/HEM: CV/HEM: Afib and HTN Comments: cath 1/2- patent LAD and RCA stents, 60% PDA stenosis EF 50% on echo GI: GI: GERD Anesthetic Plan: ASA status: 3 Anesthesia: MAC Risk of > 500 ml blood loss (7ml/kg in children): No PFSH Anesthesia PFSH: Medical History (Updated 09/15/20 @ 11:29 by Kiran Lemos MD) Atrial fibrillation and flutter Coronary artery disease Erectile dysfunction Refractory erectile dysfunction consider sildenafil, vacuum erection device GERD (gastroesophageal reflux disease) History of DVT (deep vein thrombosis) History of pulmonary embolism Obstructive sleep apnea Pulmonary embolism Surgical History Hx of appendectomy Hx of rotator cuff surgery BILATERAL Family History Mother Diabetes Stroke Father Diabetes Social History Smoking and tobacco status: never smoked Alcohol intake: current Alcohol intake frequency: holidays/special occasions only Adopted: No Caregiver/support person: No Lives independently: No Household members: spouse Marital status: Current occupational status: employed 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
--- NOTE | 2020-09-18 13:31 | W.PM.OPSUD ---
Surgery/Procedure H&P Update DATE OF PROCEDURE: September 18, 2020 DATE H&P PERFORMED: 09/07/20 H&P UPDATE INFORMATION: I have reviewed H&P completed within last 30 days, I have examined patient prior to procedure and No changes to prior documentation PREOP DIAGNOSIS: Atrial flutter, worsening of chest pain PLANNED PROCEDURE: Operation Date: 09/18/20 13:30 Proposed Procedures p Cardioversion 29298 I48.92(Not Applicable) - Dylan Wakefield MD PATIENT REASSESSED PRIOR TO SEDATION, WITH NO CHANGE NOTED: Yes PHYSICAL EXAM: alert, oriented x 3, clear to auscultation bilaterally and regular rate & rhythm AIRWAY EVAL/ANESTHESIA PLAN: ASA II, Risks, benefits & alternatives of sedation and/or procedure discussed and Patient agrees to continue as planned ADDITIONAL INFORMATION: All the risk benefit and alternative for the procedure of electrical cardioversion was explained in detail and fully by me including chance of stroke, chance of bradycardia heart block leading to intubation temporary or permanent pacemaker hypotension and arrhythmia. Patient agrees to it and would like to proceed with it. Patient is on apixaban for more than 3 months. He has not had any single day of discontinuation of this med.
[2020-09-18 13:40] VITALS: BP 102/53; PULSE 60; RESP 18; O2SAT 100
--- NOTE | 2020-09-18 13:43 | PM.PROC ---
Procedure Note: Date of procedure: 09/18/20 Other Information: After carefully explaining in detail all risk benefit and alternative for the procedure patient was given IV propofol by anesthesia colleague please see their note. Under sterilized condition chest pad for electrical cardioversion were attached to the patient. After confirming atrial flutter rhythm, synchronized 120 J of shock was delivered through biphasic defibrillator. Patient converted into sinus rhythm without any complication. Patient is recovering from the procedure now. No complication noted. Coding Level of Care Code Acute Displayer Merchandise for Segundo Tomas
--- NOTE | 2020-09-18 13:45 | ECG_ITS ---
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 Measurements Intervals [place] Rate: 61 P: 41 MT: 141 QRS: 20 QRSD: 105 T: 60 QT: 346 QTc: 349 Interpretive Statements SINUS RHYTHM NONSPECIFIC T-WAVE ABNORMALITY Compared to ECG 08/05/2020 00:44:30 T-wave abnormality now present Atrial flutter no longer present Ventricular premature complex(es) no longer present Myocardial infarct finding no longer present Electronically Signed On 09-18-2020 18:23:29 RECONCILING CLERK by Adi De La Paz M.D. [id number]
[2020-09-18 13:47] VITALS: BP 98/57; PULSE 58; RESP 16; TEMP 36.7; O2SAT 99
[2020-09-18 13:55] VITALS: BP 100/61; PULSE 59; RESP 17; O2SAT 99
[2020-09-18 14:02] VITALS: BP 100/61; PULSE 59; RESP 17; O2SAT 99
[2020-09-18 14:16] VITALS: BP 119/75; PULSE 58; RESP 17; O2SAT 99
--- NOTE | 2020-09-18 14:23 | ANE.PACU2 ---
Inpatient post-anesthesia follow up: Airway intact: Yes Vital signs: Temperature 98.0 F Pulse Rate 58 Respiratory Rate 17 Blood Pressure 119/75 Pulse Oximetry 99 Oxygen Delivery Me thod Room Air Oxygen Flow Rate Fraction of Inspir ed Oxygen Hydration adequate: Yes Nausea and vomiting: No Pain level: 1 Mental status: Baseline
== END | disposition home or self-care (01) ==
PROVIDERS: PCP Family Medicine; Visit Provider Internal Medicine Cardiovascular Disease
PROC: 5A2204Z Restoration of Cardiac Rhythm, Single (ICD-10-PCS; principal; 2020-09-18 13:30)
DX: I48.92 Unspecified atrial flutter (principal); Z86.711 Personal history of pulmonary embolism; I10 Essential (primary) hypertension; I25.10 Atherosclerotic heart disease of native coronary artery without angina pectoris; K21.9 Gastro-esophageal reflux disease without esophagitis; Z86.718 Personal history of other venous thrombosis and embolism; G47.33 Obstructive sleep apnea (adult) (pediatric); Z79.52 Long term (current) use of systemic steroids
CPT/HCPCS: 36415; 92960; 93005; J2704

== ENCOUNTER 2020-12-08 14:40 | Emergency (ER) | payer MEDICARE, BC, SELFPAY ==
[2020-12-08 14:44] VITALS: BP 150/84; PULSE 58; RESP 18; TEMP 36.9; O2SAT 99; BMI 32.2
[2020-12-08 14:52] VITALS: BP 144/83; PULSE 67; O2SAT 97
--- NOTE | 2020-12-08 14:56 | XR_ITS ---
WS: [id number] Exam: XR chest 1V portable [id number] Date/Time of Exam: 12/08/2020 2:56 PM Reason For Exam: Chest Pain Comparison 08/04/2020. Mild infiltrate in the right lower lung zone. The left lung is clear. Cardiomediastinal structures ar e unremarkable for technique. Bony elements are intact. Moderate DJD of both shoulders. Anchoring scr ew in the left humeral head. XR/XR chest 1V portable [id number] IMPRESSION: 1. Mild infiltrate and/or atelectasis in the right base. Developing pneumonia n ot excluded.
[2020-12-08 15:08] VITALS: BP 144/83; PULSE 72; RESP 26; O2SAT 97
[2020-12-08 15:29] LABS: Basophils % 0.2 %; Eosinophils % 0.3 %; Hematocrit 42.9 % (42.0-52.0); Hemoglobin 13.8 g/dL (11.7-16.6); Lymphocytes # 2.1 10^3/uL (0.8-4.8); Lymphocytes % 17.2 %; Mean Corpuscular HGB Conc 32.2 g/dL (30.0-36.0); Mean Corpuscular Hemoglobin 31.2 pg (28.0-34.0); Mean Corpuscular Volume 96.8 fL (80-94); Mean Platelet Volume 10.8 fL (7.4-10.4); Monocytes # 1.1 10^3/uL (0.2-0.9); Monocytes % 9.5 %; Neutrophils # 8.74 10^3/uL (1.8-7.7); Neutrophils % 72.6 %; Nucleated Red Blood Cells % 0 %; Platelet Count 173 10^3/cmm (130-400); Red Blood Count 4.43 10^6/uL (4.1-5.3); Red Cell Distribution Width 12.4 % (12.1-15.1)
[2020-12-08] MEDS: aspirin 81 mg Chew Tablet 324 MG PO (15:29)
[2020-12-08] MEDS: sodium chloride 0.9% 500 ML 999 ML IV (15:30)
[2020-12-08] MEDS: ketorolac 30 mg/mL INJ 15 MG IVP (15:33)
--- NOTE | 2020-12-08 15:33 | W.ED.CHESTPA ---
HPI - Chest Pain General: Chief Complaint: Chest Pain Stated Complaint: chest pain, Sent from Time Seen by Provider: 12/08/20 15:06 History of Present Illness: HPI narrative: 75-year-old male presents with what he thinks is musculoskeletal chest pain. Patient's had chest wall pain for about 4 days. Patient presents today for further evaluation. Patient has a history of GA with post stent pericarditis. Patient wants to have further evaluated to make sure he is not having further pericarditis. Patient is not having shortness of breath, no fever or chills. Patient reports he gets worse if he bends over sometimes if he lays down. With activity. pt reports pain started in left arm, moved to chest and neck Associated symptoms: Deny dyspnea, fever(s), palpitations or syncope Review of Systems Const: Denies: fever(s) or chills Card: Reports: chest pain; Denies: palpitations, irregular heart rhythm, lightheadedness or syncope Resp: Denies: dyspnea or productive cough : Denies: flank pain, difficulty urinating or dysuria Musc: Reports: extremity pain Skin/Breast: Denies: rash or pruritus Neuro: Denies: headache(s) or numbness in extremities PFSH ED PFSH: Medical History Atrial fibrillation and flutter Coronary artery disease Erectile dysfunction Refractory erectile dysfunction consider sildenafil, vacuum erection device GERD (gastroesophageal reflux disease) History of cardioversion History of DVT (deep vein thrombosis) History of pulmonary embolism Obstructive sleep apnea Pulmonary embolism Surgical History Hx of appendectomy Hx of rotator cuff surgery BILATERAL Family History Mother Diabetes Stroke Father Diabetes Social History Smoking and tobacco status: never smoked Alcohol intake: current Alcohol intake frequency: holidays/special occasions only Adopted: No Caregiver/support person: No Lives independently: No Household members: spouse Marital status: Current occupational status: employed 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 Physical Exam Const: COMMON NORMALS: no acute distress, average body habitus and patient oriented x3 GENERAL APPEARANCE: cooperative and well kempt Chest: CHEST: Yes tenderness other (Left chest wall) Resp: COMMON NORMALS: normal respiratory effort and No retractions EFFORT & INSPECTION: Yes able to speak in complete sentences Cardio: COMMON NORMALS: regular rate and regular rhythm RATE: regular rate RHYTHM: regular rhythm GI: COMMON NORMALS: Soft to palpation and non-tender PALPATION: Yes Soft to palpation Neuro: COMMON NORMALS: patient oriented x3, no focal motor deficits and no sensory deficits noted Psych: COMMON NORMALS: Normal thought process present, normal affect and speech normal APPEARANCE: Yes well kempt SPEECH: Yes normal speech THOUGHT PROCESS: Normal thought process present Skin: COMMON NORMALS: no rashes or lesions noted GENERAL SKIN EXAM: no rashes or lesions noted Course Vital Signs: Vital signs: Vital Signs Temperature 98.5 F 12/08/20 14:44 Pulse Rate 55 L 12/08/20 18:44 Respiratory Rate 26 H 12/08/20 18:44 Blood Pressure 126/61 12/08/20 18:44 Pulse Oximetry 93 12/08/20 18:44 MDM - Chest Pain MDM Narrative: Medical decision making narrative: Patient's troponin remains unchanged with a likely baseline of 18. Patient felt significant better following treatment with Toradol. Patient likely musculoskeletal in nature. Patient will be discharged home in stable condition Lab Data: Attestation: I reviewed the patient's lab results. Labs: Lab Results 12/08/20 12/08/20 12/08/20 Range/Units 15:16 15:16 15:16 WBC 12.0 H (4.0-10.0) 10^3/ uL RBC 4.43 (4.1-5.3) 10^6/u L Hgb 13.8 (11.7-16.6) g/dL Hct 42.9 (42.0-52.0) % MCV 96.8 H (80-94) fL MCH 31.2 (28.0-34.0) pg MCHC 32.2 (30.0-36.0) g/dL RDW 12.4 (12.1-15.1) % Plt Count 173 (130-400) 10^3/c mm MPV 10.8 H (7.4-10.4) fL Neut % (Auto) 72.6 % Lymph % (Auto) 17.2 % Childress % (Auto) 9.5 % Eos % (Auto) 0.3 % Baso % (Auto) 0.2 % Neut # (Auto) 8.74 H (1.8-7.7) 10^3/u L Lymph # (Auto) 2.1 (0.8-4.8) 10^3/u L Childress # (Auto) 1.1 H (0.2-0.9) 10^3/u L Eos # (Auto) 0.0 (0.0-0.8) 10^3/u L Baso # (Auto) 0.0 (0.0-0.1) 10^3/u L Nucleated RBC % (a uto) 0 % Nucleated RBCs # 0.0 /100WBC PT 16.30 H (12.1-14.9) SECO NDS INR 1.27 H (0.8-1.2) APTT 40.7 H (23.9-36.7) SECO NDS D-Dimer 0.65 H (0-0.59) ug/mIFE U Sodium 141 (136-145) mmol/L Potassium 4.2 (3.5-5.1) mmol/L Chloride 103 (98-107) mmol/L Carbon Dioxide 28 (22-29) mmol/L Anion Gap 14.2 (5-19) BUN 21 (8-23) mg/dL Creatinine 0.8 (0.7-1.2) mg/dL GFR Calculation Not Reportable Glucose 95 (65-115) mg/dL Calculated Osmolal ity 295 (285-295) mOsm/k g Calcium 8.7 (8.5-10.5) mg/dL Total Bilirubin 0.9 (0.15-1.2) mg/dL AST 17 (0-40) U/L ALT 10 (0-41) U/L Alkaline Phosphata se 90 (40-130) IU/L Troponin T Baselin e (0-15) ng/L Troponin T 120 Min uriel (0-15) ng/L Delta Troponin T (0-10) ABS# NT-Pro-B Natriuret Pep 124 (0-125) pg/mL Total Protein 6.7 (6.6-8.7) g/dL Albumin 4.5 (3.5-5.2) g/dL Globulin 2.2 (1.3-4.6) g/dL 12/08/20 12/08/20 Range/Units 15:16 17:16 WBC (4.0-10.0) 10^3/ uL RBC (4.1-5.3) 10^6/u L Hgb (11.7-16.6) g/dL Hct (42.0-52.0) % MCV (80-94) fL MCH (28.0-34.0) pg MCHC (30.0-36.0) g/dL RDW (12.1-15.1) % Plt Count (130-400) 10^3/c mm MPV (7.4-10.4) fL Neut % (Auto) % Lymph % (Auto) % Childress % (Auto) % Eos % (Auto) % Baso % (Auto) % Neut # (Auto) (1.8-7.7) 10^3/u L Lymph # (Auto) (0.8-4.8) 10^3/u L Childress # (Auto) (0.2-0.9) 10^3/u L Eos # (Auto) (0.0-0.8) 10^3/u L Baso # (Auto) (0.0-0.1) 10^3/u L Nucleated RBC % (a uto) % Nucleated RBCs # /100WBC PT (12.1-14.9) SECO NDS INR (0.8-1.2) APTT (23.9-36.7) SECO NDS D-Dimer (0-0.59) ug/mIFE U Sodium (136-145) mmol/L Potassium (3.5-5.1) mmol/L Chloride (98-107) mmol/L Carbon Dioxide (22-29) mmol/L Anion Gap (5-19) BUN (8-23) mg/dL Creatinine (0.7-1.2) mg/dL GFR Calculation Glucose (65-115) mg/dL Calculated Osmolal ity (285-295) mOsm/k g Calcium (8.5-10.5) mg/dL Total Bilirubin (0.15-1.2) mg/dL AST (0-40) U/L ALT (0-41) U/L Alkaline Phosphata se (40-130) IU/L Troponin T Baselin e 18 H (0-15) ng/L Troponin T 120 Min uriel 17.04 H (0-15) ng/L Delta Troponin T -0.96 L (0-10) ABS# NT-Pro-B Natriuret Pep (0-125) pg/mL Total Protein (6.6-8.7) g/dL Albumin (3.5-5.2) g/dL Globulin (1.3-4.6) g/dL Imaging Data^: CXR: Radiologist's impression: Exam: XR chest 1V portable [id number] Date/Time of Exam: 12/08/2020 2:56 PM Reason For Exam: Chest Pain Comparison 08/04/2020. Mild infiltrate in the right lower lung zone. The left lung is clear. Cardiomediastinal structures are unremarkable for technique. Bony elements are intact. Moderate DJD of both shoulders. Anchoring screw in the left humeral head. XR/XR chest 1V portable [id number] IMPRESSION: 1. Mild infiltrate and/or atelectasis in the right base. Developing pneumonia not excluded. Discharge Plan Discharge Patient Disposition: Home Condition: Stable Prescriptions: No Action sildenafil 100 mg tablet 100 mg PO DAILY PRN (Reason: sexual activity) Qty: 20 RF: 12 metoprolol tartrate 25 mg tablet 12.5 mg PO Q12H RF: 0 nitroglycerin [Nitrostat] 0.4 mg tablet, sublingual 0.4 mg sublingual Q5M PRN (Reason: chest pain) Qty: 25 RF: 6 pantoprazole 40 mg tablet,delayed release (DR/EC) 40 mg PO BID Qty: 60 RF: 6 Tylenol Extra Strength 500 mg Tablet 1,000 mg PO Q6H PRN (Reason: Pain) RF: 0 atorvastatin 40 mg tablet 40 mg PO BEDTIME RF: 0 Pacerone 200 mg tablet 200 mg PO QAM RF: 0 Eliquis 5 mg tablet 5 mg PO BID@ RF: 0 clopidogrel 75 mg tablet 75 mg PO DAILY@07 RF: 0 Discharge Orders: Discharge ED (Routine); Ordered 12/08/20 Ordered By: Jose Wiseman Referrals: Pete Dunne MD [Primary Care Provider] - Discharge Diet: Usual diet Discharge Activity: Increase activity as tolerated Patient Instructions: Chest Pain - Chest Wall, Musculoskeletal Pain (ED), Opioid Safety Activity Restrictions/Additional Instructions: 4% topical lidocaine with menthol as instructed on package to affected area [id number] Aleve twice daily Follow-up with your primary care provider as needed Coding Level of Care Code ED Tetryl Nitrator Operator for Segundo Fwd Exam Comprehensive
--- NOTE | 2020-12-08 15:34 | PC.PHAR ---
pt states he takes care of his own medications-pt states he is taking half of a metoptolol tartrate 25mg takes 12.5mg po bid-pt states his colchicine 0.6mg bid filled on 09/03/20 90d/s and tiadylt er 240mg daily filled on 09/14/20 90d/s was DCED-
[2020-12-08 15:52] LABS: Troponin(5th) Baseline 18 ng/L (0-15)
[2020-12-08 15:53] LABS: INR 1.27 (0.8-1.2)
[2020-12-08 15:54] LABS: Partial Thromboplastin Time 40.7 SECONDS (23.9-36.7)
[2020-12-08 15:56] LABS: D Dimer 0.65 ug/mIFEU (0-0.59)
[2020-12-08 15:59] LABS: Alanine Aminotransferase 10 U/L (0-41); Albumin Level 4.5 g/dL (3.5-5.2); Alkaline Phosphatase 90 IU/L (40-130); Blood Urea Nitrogen 21 mg/dL (8-23); Calcium 8.7 mg/dL (8.5-10.5); Carbon Dioxide 28 mmol/L (22-29); Chloride 103 mmol/L (98-107); Globulin 2.2 g/dL (1.3-4.6); Glucose 95 mg/dL (65-115); NT Pro B Type Natriuretic Pept 124 pg/mL (0-125); Osmolality Calculated 295 mOsm/kg (285-295); Sodium 141 mmol/L (136-145); Total Bilirubin 0.9 mg/dL (0.15-1.2); Total Protein 6.7 g/dL (6.6-8.7)
[2020-12-08 16:20] LABS: Aspartate Amino Transferase 17 U/L (0-40)
[2020-12-08 16:22] LABS: Anion Gap 14.2 (5-19); Potassium 4.2 mmol/L (3.5-5.1)
--- NOTE | 2020-12-08 16:56 | ECG_ITS ---
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 Measurements Intervals [place] Rate: 60 P: 45 [place]: 131 QRS: 40 QRSD: 94 T: 61 QT: 423 QTc: 425 Interpretive Statements SINUS RHYTHM POSSIBLE LEFT ATRIAL ENLARGEMENT [-0.1mV P WAVE IN V1/V2] ST ELEVATION, PROBABLY EARLY REPOLARIZATION [ST ELEVATION WITH NORMALLY INFLECTED T WAVE] NONSPECIFIC ST & T-WAVE ABNORMALITY Compared to ECG 09/18/2020 14:23:37 ST (T wave) deviation now present Early repolarization now present T-wave abnormality still present Electronically Signed On 12-08-2020 23:14:13 CDT by Aida West M.D. [id number]
[2020-12-08 17:46] LABS: Troponin 5 2HR 17.04 ng/L (0-15)
[2020-12-08 18:01] LABS: Troponin 5 2HR Delta -0.96 ABS# (0-10)
[2020-12-08 18:44] VITALS: BP 126/61; PULSE 55; RESP 26; O2SAT 93
== END 2020-12-08 18:44 | disposition home or self-care (01) ==
PROVIDERS: Emergency Medicine; Emergency Provider Student in an Organized Health Care Education/Training Program; PCP Family Medicine
DX: R07.9 Chest pain, unspecified (principal); Z79.01 Long term (current) use of anticoagulants; Z79.02 Long term (current) use of antithrombotics/antiplatelets; I48.91 Unspecified atrial fibrillation; I25.10 Atherosclerotic heart disease of native coronary artery without angina pectoris; I26.99 Other pulmonary embolism without acute cor pulmonale
CPT/HCPCS: 36415; 71045; 80053; 83880; 84484; 85025; 85378; 85610; 85730; 93005; 96374; 99284; J1885; J7040

== ENCOUNTER 2020-12-08 14:53 | Outpatient (CLI) | payer MEDICARE, BC, SELFPAY ==
--- NOTE | 2020-12-08 | XR_ITS ---
WS: [id number] PROCEDURE: XR chest 2V* [id number] CLINICAL INFORMATION: CHEST PAIN COMPARISON: August 04, 2020 FINDINGS: Heart: Cardiomegaly. Lungs: No consolidation or pleural fluid. Possible developing infiltrate in right lower lobe posterio r medially. Lungs are otherwise well aerated. Bones: Bilateral rotator cuff anchors. Mild thoracic kyphosis. XR/XR chest 2V* [id number] IMPRESSION: 1. Cardiomegaly. 2. Possible developing infiltrate in right lower lobe medially. Recommend bobby elation for pneumonitis. 3. Chest otherwise unremarkable.
== END 2020-12-08 14:54 | disposition home or self-care (01) ==
LOC: RADOUTREAD 15:18
PROVIDERS: PCP Family Medicine; Visit Provider Family Medicine
DX: Z53.9 Procedure and treatment not carried out, unspecified reason (principal)

== ENCOUNTER 2020-12-11 09:08 | Outpatient (CLI) | payer MEDICARE, BC, SELFPAY ==
--- NOTE | 2020-12-11 09:45 | USCV_ITS ---
Hardeep Rodriguez Age: 75 Gender: M : 1945 Exam Date: 12/11/2020 09:38 Ordering Phys: Pete Dunne MD Technologist: Arleen Lal Exam Location: [facility] – [place] Indication: pericarditis BP: 128 / 68 HR: 71 Rhythm: Sinus Technical Quality: Adequate MEASUREMENTS (Male / Female) Normal Values 2D ECHO LV Diastolic Diameter PLAX 5.6 cm 4.2 - 5.9 / 3.9 - 5.3 cm LV Systolic Diameter PLAX 2.9 cm IVS Diastolic Thickness 1.5 cm 0.6 - 1.0 / 0.6 - 0.9 cm IVS Systolic Thickness 3.3 cm LVPW Diastolic Thickness 1.3 cm 0.6 - 1.0 / 0.6 - 0.9 cm LVPW Systolic Thickness 2.3 cm LVOT Diameter 2.0 cm LV Ejection Fraction 2D Teich 79.8 % LV Ejection Fraction MOD 2C 42.0 % LV Ejection Fraction 2C AL 41.9 % LA Diameter 3.9 cm LA Width 4.0 cm LA Height 5.4 cm RA Width 3.8 cm RA Height 4.8 cm Aorta at Sinotubular Diameter 3.5 cm M-MODE LV Diastolic Diameter MM 5.2 cm 4.2 - 5.9 / 3.9 - 5.3 cm LV Systolic Diameter MM 3.5 cm LV Ejection Fraction MM Teich 61.1 % IVS Diastolic Thickness MM 1.9 cm 0.6 - 1.0 / 0.6 - 0.9 cm IVS Systolic Thickness MM 2.4 cm LVPW Diastolic Thickness MM 2.6 cm 0.6 - 1.0 / 0.6 - 0.9 cm LVPW Systolic Thickness MM 3.5 cm Aortic Annulus Diameter 3.4 cm LA Ao Ratio MM 1.2 MV E Point Septal Separation 0.8 cm FINDINGS Left Ventricle Normal left ventricular cavity size. Normal left ventricular systolic function. Left ventricular ejection fraction is estimated at 55 %. Right Ventricle The right ventricle is normal in size and function. Right Atrium The right atrium is normal in size. Left Atrium The left atrium is normal in size. Mitral Valve Moderately thickened mitral valve. No mitral valve stenosis. Aortic Valve Moderate aortic valve calcification. No aortic valve stenosis. Tricuspid Valve Structurally normal tricuspid valve without significant stenosis. Pulmonary artery systolic pressure is normal. Pulmonic Valve Structurally normal pulmonic valve without significant stenosis. Pericardium Normal pericardium without effusion. Aorta Normal ascending aorta dimension. CONCLUSIONS 1-Normal left ventricular cavity size. Normal left ventricular systolic function. Left ventricular ejection fraction is estimated at 55 %. 2-Moderately thickened mitral valve. No mitral valve stenosis. 3-Moderate aortic valve calcification. No aortic valve stenosis. 4-Structurally normal tricuspid valve without significant stenosis. Pulmonary artery systolic pressure is normal. 5-Structurally normal pulmonic valve without significant stenosis. 6-There is no pericardial effusion. 7-In the absence of Doppler data I cannot comment on hemodynamics of the valve. 8-No significant change since the prior echocardiogram study of 08/06/2020. Dylan Wakefield MD (Electronically Signed) Final Date: 19 December 2020 12:30 S
== END 2020-12-11 09:09 | disposition home or self-care (01) ==
LOC: RAD 09:13
PROVIDERS: PCP Family Medicine; Visit Provider Family Medicine
DX: I31.9 Disease of pericardium, unspecified (principal); I08.0 Rheumatic disorders of both mitral and aortic valves
CPT/HCPCS: 93308

== ENCOUNTER 2021-06-28 17:03 | Outpatient (CLI) | payer MEDICARE, BC, SELFPAY ==
--- NOTE | 2021-06-28 | CTR_ITS ---
PROCEDURE INFORMATION: Exam: CTA Chest With Contrast Exam date and time: 06/28/2021 6:28 PM Age: 76 years old Clinical indication: Sternal or substernal pain; Prior surgery; Surgery type: Stents; Additional info: Cp HX of pe, SOB TECHNIQUE: Imaging protocol: Computed tomographic angiography of the chest with contrast. 3D rendering (Not supervised by radiologist): MIP and/or 3D reconstructed images were created by the technologist. Radiation optimization: All CT scans at this facility use at least one of these dose optimization techniques: automated exposure control; mA and/or kV adjustment per patient size (includes targeted exams where dose is matched to clinical indication); or iterative reconstruction. Contrast material: OMNI 350; Contrast volume: 91 ml; Contrast route: INTRAVENOUS (IV); COMPARISON: CT angio chest PE protcl [id number] 08/04/2020 5:10 PM RADIATION DOSE METRICS: Total DLP (mGy-cm): 587.99 FINDINGS: Pulmonary arteries: Normal. No pulmonary emboli. Aorta: Unremarkable. No aortic aneurysm. No aortic dissection. Lungs: Minimal dependent atelectasis versus early infiltrate. Left lower lobe demonstrates some peripheral bullous changes in the anterior sail. Pleural spaces: Unremarkable. No pneumothorax. No pleural effusion. Heart: Coronary artery atherosclerotic calcifications. Lymph nodes: Unremarkable. No enlarged lymph nodes. Stomach and bowel: Constipation. Bones/joints: Unremarkable. No acute fracture. Soft tissues: Unremarkable. CT/CT angio chest PE protcl [id number] IMPRESSION: 1. Negative for pulmonary embolus. 2. Coronary artery atherosclerotic calcifications. 3. Constipation. 4. Minimal dependent atelectasis versus early infiltrate. 5. Left lower lobe demonstrates some peripheral bullous changes in the anterior sail.
[2021-06-28] MEDS: iohexol 350 mg/mL 100 mL Btl IV (18:46)
== END 2021-06-28 17:04 | disposition home or self-care (01) ==
PROVIDERS: PCP Family Medicine; Visit Provider Physician Assistant
DX: I31.9 Disease of pericardium, unspecified (principal); I25.10 Atherosclerotic heart disease of native coronary artery without angina pectoris; K59.00 Constipation, unspecified
CPT/HCPCS: 71275

== ENCOUNTER 2021-07-26 11:11 | Outpatient (CLI) | payer MEDICARE, BC, SELFPAY ==
--- NOTE | 2021-07-26 11:32 | USCV_ITS ---
JenniferHardeep Age: 76 Gender: M : 1945 Exam Date: 07/26/2021 11:46 Ordering Phys: Arleen Dunne Technologist: Exam Location: [facility] [place] Indication: ? pericarditis BP: 140 / 80 HR: 46 Rhythm: Sinus Technical Quality: Adequate MEASUREMENTS (Male / Female) Normal Values 2D ECHO LV Diastolic Diameter PLAX 3.0 cm 4.2 - 5.9 / 3.9 - 5.3 cm LV Systolic Diameter PLAX 1.8 cm IVS Diastolic Thickness 1.0 cm 0.6 - 1.0 / 0.6 - 0.9 cm IVS Systolic Thickness 1.1 cm LVPW Diastolic Thickness 1.2 cm 0.6 - 1.0 / 0.6 - 0.9 cm LVPW Systolic Thickness 1.1 cm LVOT Diameter 2.0 cm LV Ejection Fraction 2D Teich 73.5 % LV Ejection Fraction MOD 2C 72.0 % LV Ejection Fraction 2C AL 72.8 % LA Diameter 3.9 cm LA Width 5.0 cm LA Height 5.6 cm RA Width 3.6 cm RA Height 4.7 cm Aorta at Sinotubular Diameter 3.5 cm M-MODE Aortic Annulus Diameter 3.9 cm LA Ao Ratio MM 1.0 MV E Point Septal Separation 1.2 cm DOPPLER AV Peak Velocity 120.0 cm/s LVOT Peak Velocity 102.0 cm/s AV Area Cont Eq vti 2.9 cm squared AV Area Cont Eq pk 2.7 cm squared MV Area PHT 5.0 cm squared Mitral E to A Ratio 2.1 MV E' Velocity 32.5 cm/s Mitral E to MV E' Ratio 7.1 Mitral E to LV E' Lateral Ratio 6.0 Mitral E to LV E' Septal Ratio 8.8 TR Peak Velocity 152.0 cm/s TR Peak Gradient 9.2 mmHg TV Peak E Velocity 67.0 cm/s Right Atrial Pressure 3.0 mmHg Pulmonary Artery Systolic Pressu 12.2 mmHg FINDINGS Left Ventricle Normal left ventricular size. LV systolic function is normal with EF of 55-60%. No regional wall motion abnormalities. Grade 1 diastolic dysfunction Right Ventricle The right ventricle is normal in size and function. Right Atrium The right atrium is normal in size. Prominent eustachian valve is noted Left Atrium The left atrium is enlarged Mitral Valve Structurally normal mitral valve without significant stenosis or prolapse. There is mild mitral regurgitation. Aortic Valve Structurally normal aortic valve without significant sclerosis or stenosis. There is no aortic regurgitation. Tricuspid Valve Structurally normal tricuspid valve without significant stenosis or regurgitation. Insufficient TR jet to calculate RVSP Pulmonic Valve Structurally normal pulmonic valve without significant stenosis. There is no pulmonic regurgitation. Pericardium Normal pericardium without effusion. Aorta Mildly dilated ascending aorta CONCLUSIONS LV systolic function is normal with EF of 55-60% Grade 1 diastolic dysfunction Left atrial enlargement Mild mitral regurgitation Compared to prior echocardoiogram from 08/06/2020, ascending aorta is mildly dilated and measures 3.66 cm Adi De La Paz MD (Electronically Signed) Final Date: 26 July 2021 15:12 S
== END 2021-07-26 11:12 | disposition home or self-care (01) ==
LOC: RAD 11:17
PROVIDERS: PCP Family Medicine; Visit Provider Physician Assistant
DX: I31.9 Disease of pericardium, unspecified (principal); I34.0 Nonrheumatic mitral (valve) insufficiency
CPT/HCPCS: 93306

== ENCOUNTER → 2022-01-03 13:14 | Outpatient (BNVA) | payer MEDICARE, BC, SELFPAY | PROVIDERS: PCP Family Medicine; Visit Provider Urology | DX: N52.1 Erectile dysfunction due to diseases classified elsewhere (principal) | CPT/HCPCS: 81003; 99213 ==

== ENCOUNTER → 2022-02-14 15:32 | Outpatient (BNVA) | payer MEDICARE, BC, SELFPAY | PROVIDERS: PCP Family Medicine; Visit Provider Internal Medicine | DX: I48.91 Unspecified atrial fibrillation (principal); I48.92 Unspecified atrial flutter; Z86.711 Personal history of pulmonary embolism; I25.119 Atherosclerotic heart disease of native coronary artery with unspecified angina pectoris | CPT/HCPCS: 99213; 99214 ==

== ENCOUNTER → 2022-08-30 12:33 | Outpatient (BNVA) | payer MEDICARE, OTHER, SELFPAY | PROVIDERS: PCP Family Medicine; Visit Provider Internal Medicine | DX: I48.91 Unspecified atrial fibrillation (principal); I48.92 Unspecified atrial flutter; Z86.711 Personal history of pulmonary embolism; I25.119 Atherosclerotic heart disease of native coronary artery with unspecified angina pectoris | CPT/HCPCS: 99214 ==

== ENCOUNTER 2022-09-15 12:32 | Outpatient (CLI) | payer MEDICARE, OTHER, SELFPAY ==
--- NOTE | 2022-09-15 12:40 | USCV_ITS ---
Hardeep Rodriguez Age: 77 Gender: M : 1945 Exam Date: 09/15/2022 12:58 Ordering Phys: Technologist: Raymond Kenney Exam Location: [facility] – [place] Indication: aortic valve calcification BP: 130 / 70 HR: 58 Rhythm: Sinus Technical Quality: Adequate MEASUREMENTS (Male / Female) Normal Values 2D ECHO LV Diastolic Diameter PLAX 4.1 cm 4.2 - 5.9 / 3.9 - 5.3 cm LV Systolic Diameter PLAX 2.9 cm IVS Diastolic Thickness 0.7 cm 0.6 - 1.0 / 0.6 - 0.9 cm IVS Systolic Thickness 1.1 cm LVPW Diastolic Thickness 0.8 cm 0.6 - 1.0 / 0.6 - 0.9 cm LVPW Systolic Thickness 1.1 cm LVOT Diameter 2.1 cm LV Ejection Fraction 2D Teich 55.8 % LV Ejection Fraction MOD 2C 59.8 % LV Ejection Fraction 2C AL 62.3 % LA Diameter 3.8 cm LA Width 4.1 cm LA Height 6.5 cm RA Width 3.7 cm RA Height 5.6 cm Aorta at Sinotubular Diameter 2.4 cm IVC Diameter 1.9 cm M-MODE Aortic Annulus Diameter 2.8 cm LA Ao Ratio MM 1.2 MV E Point Septal Separation 0.5 cm DOPPLER AV Peak Velocity 129.3 cm/s LVOT Peak Velocity 122.0 cm/s AV Area Cont Eq vti 2.8 cm squared AV Area Cont Eq pk 3.3 cm squared MV Peak Velocity 90.0 cm/s MV Area PHT 3.9 cm squared Mitral E to A Ratio 1.3 MV E' Velocity 45.5 cm/s Mitral E to MV E' Ratio 8.4 Mitral E to LV E' Lateral Ratio 8.4 Mitral E to LV E' Septal Ratio 8.5 TR Peak Velocity 527.8 cm/s TR Peak Gradient 111.4 mmHg TR Mean Velocity 392.4 cm/s TR Mean Gradient 65.6 mmHg TR Velocity Time Integral 161.8 cm Right Atrial Pressure 3.0 mmHg Pulmonary Artery Systolic Pressu 114.4 mmHg PV Peak Velocity 65.0 cm/s RV Acceleration Time 0.1 s RV Ejection Time 0.3 s RV AcT/ET 0.4 FINDINGS Left Ventricle Technically limited quality echocardiogram because of poor ultrasonic windows. LV systolic function is normal with EF 55 to 60%. No regional wall motion abnormalities are seen. Right Ventricle Normal in size and function Right Atrium Normal in size Left Atrium Dilated. Mitral Valve Structurally normal mitral valve. Mild mitral regurgitation. Aortic Valve Not well-visualized. No significant stenosis or regurgitation is seen. Tricuspid Valve Trace tricuspid regurgitation. Insufficient TR jet to calculate RVSP Pulmonic Valve Not visualized Pericardium Normal Aorta Not well visualized IVC Not well visualized CONCLUSIONS Technically limited quality echocardiogram because of poor ultrasonic windows. LV systolic function is normal with EF 55 to 60% Mild mitral regurgitation Left atrial dilation Trace tricuspid regurgitation Compared to prior echocardiogram from 07/26/2021, no significant changes are seen. Adi De La Paz MD (Electronically Signed) Final Date: 17 September 2022 21:44 S
== END 2022-09-15 12:33 | disposition home or self-care (01) ==
LOC: RAD 12:35
PROVIDERS: PCP Family Medicine; Visit Provider Family Medicine
DX: I08.1 Rheumatic disorders of both mitral and tricuspid valves (principal)
CPT/HCPCS: 93306

== ENCOUNTER → 2023-01-03 09:55 | Outpatient (BNVA) | payer MEDICARE, OTHER, SELFPAY | PROVIDERS: PCP Family Medicine; Visit Provider Urology | DX: N52.1 Erectile dysfunction due to diseases classified elsewhere (principal) | CPT/HCPCS: 81003; 99213 ==

== ENCOUNTER → 2023-06-07 09:12 | Outpatient (BNVA) | payer MEDICARE, OTHER, SELFPAY | PROVIDERS: PCP Family Medicine; Visit Provider Nurse Practitioner | DX: S83.207A Unspecified tear of unspecified meniscus, current injury, left knee, initial encounter; X58.XXXA Exposure to other specified factors, initial encounter; M17.12 Unilateral primary osteoarthritis, left knee | CPT/HCPCS: 73560; 73565; 99204 ==

== ENCOUNTER → 2023-06-19 15:00 | Outpatient (BNVA) | payer MEDICARE, OTHER, SELFPAY | PROVIDERS: PCP Family Medicine; Visit Provider Internal Medicine | DX: I48.91 Unspecified atrial fibrillation (principal); I48.92 Unspecified atrial flutter; Z86.711 Personal history of pulmonary embolism; I25.119 Atherosclerotic heart disease of native coronary artery with unspecified angina pectoris | CPT/HCPCS: 99214 ==

== ENCOUNTER 2023-07-11 14:55 | Outpatient (CLI) | payer MEDICARE, OTHER, SELFPAY ==
--- NOTE | 2023-07-11 15:15 | MR_ITS ---
WS: [id number] MRI LEFT KNEE NONCONTRAST TECHNIQUE: Axial PD, coronal PD fat sat, coronal PD, sagittal PD, and sagittal PD fat-sat images obta ined. CLINICAL INFORMATION: left knee pain COMPARISON: None. 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 Distal quadriceps and patella tendons are intact . Hypertrophic patella. Diffuse thickening with increased T1 and T2 signal involving the ACL compatib le with mucoid degeneration. Normal PCL. Tiny suprapatellar effusion. Moderate grade III chondromalacia patella. No subchondral edema. Normal medial and lateral collateral ligaments. Normal popliteus. Normal popliteal fossa. Mild degenerative narrowing medial joint compartment with subchondral edema and grade IV chondromalacia. Chronic appear ing tear involving the medial meniscus with thinning. Diffuse blunting of the posterior horn. Periphe ral extrusion of the medial meniscus. Chronic intrasubstance signal abnormality involving the lateral meniscus. No acute appearing lateral meniscal tears. IMPRESSION: 1. Normal PCL. Mucoid degeneration involving the ACL which appears intact. 2. Advanced joint space narrowing medial joint compartment with grade IV chondromalacia and subchond ral edema. 3. Chronic tearing of the medial meniscus with diffuse blunting of the posterior horn. Peripheral ex trusion of the medial meniscus. 4. No acute appearing lateral meniscal tears. 5. Grade III chondromalacia patella. 6. Small suprapatellar effusion. Outbridge grading:
== END 2023-07-11 14:56 | disposition home or self-care (01) ==
LOC: RAD 14:55
PROVIDERS: PCP Family Medicine; Visit Provider Nurse Practitioner
DX: M23.8X2 Other internal derangements of left knee (principal); M22.42 Chondromalacia patellae, left knee; S83.282A Other tear of lateral meniscus, current injury, left knee, initial encounter; X58.XXXA Exposure to other specified factors, initial encounter; M25.462 Effusion, left knee
CPT/HCPCS: 73721

== ENCOUNTER → 2023-07-28 09:48 | Outpatient (BNVA) | payer MEDICARE, OTHER, SELFPAY | PROVIDERS: PCP Family Medicine; Visit Provider Nurse Practitioner | DX: M17.12 Unilateral primary osteoarthritis, left knee (principal); M23.204 Derangement of unspecified medial meniscus due to old tear or injury, left knee | CPT/HCPCS: 99213 ==

== ENCOUNTER → 2024-03-19 14:17 | Outpatient (BNVA) | payer MEDICARE, OTHER, SELFPAY | PROVIDERS: PCP Family Medicine; Visit Provider Internal Medicine | DX: I48.91 Unspecified atrial fibrillation (principal); I48.92 Unspecified atrial flutter; Z86.711 Personal history of pulmonary embolism; I25.119 Atherosclerotic heart disease of native coronary artery with unspecified angina pectoris | CPT/HCPCS: 99213 ==

== ENCOUNTER → 2024-09-23 14:09 | Outpatient (BNVA) | payer MEDICARE, OTHER, SELFPAY | PROVIDERS: PCP Family Medicine; Visit Provider Internal Medicine | DX: I48.91 Unspecified atrial fibrillation (principal); I48.92 Unspecified atrial flutter; Z86.711 Personal history of pulmonary embolism; I25.119 Atherosclerotic heart disease of native coronary artery with unspecified angina pectoris; Z79.01 Long term (current) use of anticoagulants | CPT/HCPCS: 99213 ==

== ENCOUNTER → 2025-06-11 09:34 | Outpatient (BNVA) | payer MEDICARE, OTHER, SELFPAY | PROVIDERS: PCP Family Medicine; Visit Provider Internal Medicine | DX: I48.91 Unspecified atrial fibrillation (principal); Z79.01 Long term (current) use of anticoagulants; I48.92 Unspecified atrial flutter; I25.10 Atherosclerotic heart disease of native coronary artery without angina pectoris; Z86.718 Personal history of other venous thrombosis and embolism; Z86.711 Personal history of pulmonary embolism | CPT/HCPCS: 99214 ==